=== PATIENT | female | born 1950 | race Caucasian/White ===

== ENCOUNTER → 2020-04-29 13:07 | Outpatient (BNVA) | payer MEDICARE, OTHER, SELFPAY | PROVIDERS: Visit Provider Urology | DX: N32.81 Overactive bladder (principal); N20.0 Calculus of kidney | CPT/HCPCS: Q3014 ==

== ENCOUNTER → 2020-06-03 10:09 | Outpatient (BNVA) | payer MEDICARE, OTHER, SELFPAY | PROVIDERS: Visit Provider Urology | DX: N32.81 Overactive bladder (principal); N20.0 Calculus of kidney | CPT/HCPCS: 52000; 52287; 81002; 99212; J0585 ==

== ENCOUNTER → 2020-07-06 13:56 | Outpatient (BNVA) | payer MEDICARE, OTHER, SELFPAY | PROVIDERS: Visit Provider Urology | DX: Z13.89 Encounter for screening for other disorder (principal) | CPT/HCPCS: Q3014 ==

== ENCOUNTER 2020-07-13 07:55 | Day surgery (SDC) | payer MEDICARE, OTHER, SELFPAY ==
--- NOTE | 2020-07-12 11:57 | P.CONAN_ITS ---
Documented by User: Edwige Leida 07/12/20 12:02 HPI - Anesthesia Eval Consult details Narrative: 70yo F for R ESWL No prev ESWL on record PMFSH Active Problems Active Problems: All Active Problems (Updated 04/29/20 @ 13:10 by Keith Lauren MD) Bilateral nephrolithiasis (Acute) Overactive bladder (Acute) Past Medical History Medical History Asthma Bilateral nephrolithiasis Breast cancer COPD (chronic obstructive pulmonary disease) Depression Diabetes GERD (gastroesophageal reflux disease) HLD (hyperlipidemia) HTN (hypertension) IBS (irritable bowel syndrome) Overactive bladder Thyroid nodule Surgical History Surgical History H/O left mastectomy (~2001) S/P Botox injection (~2018) S/P parathyroidectomy (~2006) S/P thyroid biopsy (~2005) Status post left breast reconstruction (~2002) Social History Social History Smoking Status: Never smoker Use of substances other than those prescribed or required for medical reasons: No Have you been hit, kicked, punched, or otherwise hurt by someone within the past year? If so, by whom?: No Advance Directives: No Advance Directives Information Provided: Yes Recently lost weight without trying: No Meds Allergies Allergy/AdvReac Type Severity Reaction Status Date / Time latex Allergy Severe rash and Verified 07/13/20 08:39 difficulty breathing cefaclor Allergy Mild Unknown Verified 04/29/20 15:46 ciprofloxacin [From Cipro] Allergy Mild unknown Verified 04/29/20 15:46 codeine Allergy Mild unknown Verified 04/29/20 15:46 Sulfa (Sulfonamide Allergy Mild unknown Verified 04/29/20 15:46 Antibiotics) sulfamethoxazole Allergy Mild unknown Verified 04/29/20 15:46 [From Bactrim] trimethoprim [From Bactrim] Allergy Mild unknown Verified 04/29/20 15:46 Home Medications Medication Instructions Recorded Confirmed Last Taken Type blood sugar diagnostic #10 ea 04/29/20 Unknown History flu vacc 2020-21(64yr ml IM 04/29/20 Unknown History up)-MF59C(PF) 60 mcg(15 mcgx4)/0.5 mL IM syringe fluticasone 250 mcg-salmeterol 50 INHALATION 04/29/20 Unknown History mcg/dose blistr powdr for inhalation lancets 28 gauge #100 ea 04/29/20 Unknown History lisinopril 20 mg tablet 20 mg PO QAM 04/29/20 07/13/20 History metformin 500 mg tablet,extended 500 mg PO BID 04/29/20 Unknown History release 24 hr nifedipine 30 mg tablet,extended 30 mg PO DAILY 04/29/20 Unknown History release omeprazole 40 mg capsule,delayed 40 mg PO DAILY 04/29/20 Unknown History release atorvastatin 40 mg tablet mg PO 07/06/20 Unknown History diphenoxylate-atropine 2.5 PO 07/06/20 07/13/20 History mg-0.025 mg tablet gabapentin 100 mg capsule mg PO 07/06/20 Unknown History fluticasone propion-salmeterol INHALATION 07/13/20 Unknown History [Advair Diskus] fluticasone propion-salmeterol INHALATION 07/13/20 07/13/20 History [Advair Diskus] nifedipine 1 tab PO DAILY 07/13/20 07/13/20 07/12/20 History Exam Exam Date and Time: July 12, 2020 115 Assessment and Plan Assessment Anesthesia Assessment: Chart Reviewed Documented by User: Theo Suazo 07/13/20 09:18 [facility] Past Medical History Medical History Asthma Bilateral nephrolithiasis Breast cancer COPD (chronic obstructive pulmonary disease) Depression Diabetes GERD (gastroesophageal reflux disease) HLD (hyperlipidemia) HTN (hypertension) IBS (irritable bowel syndrome) Overactive bladder Thyroid nodule Surgical History Surgical History H/O left mastectomy (~2001) S/P Botox injection (~2018) S/P parathyroidectomy (~2006) S/P thyroid biopsy (~2005) Status post left breast reconstruction (~2002) Social History Social History Smoking Status: Never smoker Use of substances other than those prescribed or required for medical reasons: No Have you been hit, kicked, punched, or otherwise hurt by someone within the past year? If so, by whom?: No Advance Directives: No Advance Directives Information Provided: Yes Recently lost weight without trying: No Meds Allergies Allergy/AdvReac Type Severity Reaction Status Date / Time latex Allergy Severe rash and Verified 07/13/20 08:39 difficulty breathing cefaclor Allergy Mild Unknown Verified 04/29/20 15:46 ciprofloxacin [From Cipro] Allergy Mild unknown Verified 04/29/20 15:46 codeine Allergy Mild unknown Verified 04/29/20 15:46 Sulfa (Sulfonamide Allergy Mild unknown Verified 04/29/20 15:46 Antibiotics) sulfamethoxazole Allergy Mild unknown Verified 04/29/20 15:46 [From Bactrim] trimethoprim [From Bactrim] Allergy Mild unknown Verified 04/29/20 15:46 Home Medications Medication Instructions Recorded Confirmed Last Taken Type blood sugar diagnostic #10 ea 04/29/20 Unknown History flu vacc 2020-21(65yr ml IM 04/29/20 Unknown History up)-MF59C(PF) 60 mcg(15 mcgx4)/0.5 mL IM syringe fluticasone 250 mcg-salmeterol 50 INHALATION 04/29/20 Unknown History mcg/dose blistr powdr for inhalation lancets 28 gauge #100 ea 04/29/20 Unknown History lisinopril 20 mg tablet 20 mg PO QAM 04/29/20 07/13/20 History metformin 500 mg tablet,extended 500 mg PO BID 04/29/20 Unknown History release 24 hr nifedipine 30 mg tablet,extended 30 mg PO DAILY 04/29/20 Unknown History release omeprazole 40 mg capsule,delayed 40 mg PO DAILY 04/29/20 Unknown History release atorvastatin 40 mg tablet mg PO 07/06/20 Unknown History diphenoxylate-atropine 2.5 PO 07/06/20 07/13/20 History mg-0.025 mg tablet gabapentin 100 mg capsule mg PO 07/06/20 Unknown History fluticasone propion-salmeterol INHALATION 07/13/20 Unknown History [Advair Diskus] fluticasone propion-salmeterol INHALATION 07/13/20 07/13/20 History [Advair Diskus] nifedipine 1 tab PO DAILY 07/13/20 07/13/20 07/12/20 History Exam Airway Mallampati Class: II TM Dist: >3cm Neck ROM: Full Loose/Missing/Broken Teeth: No Heart: [id number] Lungs: cta b/l Assessment and Plan Assessment Anesthesia Assessment: Anesthesia Plan Discussed, Smoking Cess. Discussed and Chart Reviewed Final Anesthetic Review NPO: Yes ASA Class: III Final Preanesthetic Review: No Changes in Pt Med Stat, Meds/Allgs Chart Reviewed, Consent Obtained/Reviewed and Anes Risks/Benef Reviewed Patient Risk: Intermediate Procedure Risk: Low Assessment/Block/Sedation in SS: Assess/Block/Sedation-SS Anesthetic Plan Anesthetic Plan: MAC: and Agree w/ Assess. and Plan Disposition: Standard PACU
[2020-07-13] VITALS (7 sets, daily range): BP systolic 133–152; BP diastolic 59–76; PULSE 66–78; RESP 18–20; TEMP 36.2–36.6; O2SAT 92–99; BMI 31.1
--- NOTE | ~2020-07-13 | XR_ITS ---
EXAMINATION: XR ABDOMEN KUB CLINICAL INDICATION: Stone COMPARISON: None TECHNIQUE: AP view of the abdomen. FINDINGS: Evaluation for renal stone is limited due to overlying bowel gas. There are several small densities projecting over the lower pole of the left kidney questionable for stones, largest measuring 3 x 5 mm. There are bilateral nonspecific small calcifications in the pelvis. There are surgical clips in the right upper quadrant suggestive of previous cholecystectomy. There are degenerative changes of the lower lumbar spine. XR/XR KUB IMPRESSION: Limited exam due to overlying bowel gas. Question left lower pole renal stones.
[2020-07-13 08:43] LABS: Glucose, Whole Blood 104 mg/dL (60-115)
[2020-07-13] MEDS: Lactated Ringers 1,000 ML 100 ML IVCONT (08:56)
--- NOTE | 2020-07-13 09:22 | MHC.SHP ---
Pre-Procedural Eval Section A The patient is an INPATIENT: No Changes since office visit: No Cold of Flu in the past 2 weeks, No New Medical Problems, No Changes in Medication and No Patient answered all questions The History & Physical has been completed within 30 days and I have reviewed it.: Yes Section B Chief Complaint: calculus of kidney Allergies: Allergies Allergy/AdvReac Type Severity Reaction Status Date / Time latex Allergy Severe rash and Verified 07/13/20 08:39 difficulty breathing cefaclor Allergy Mild Unknown Verified 04/29/20 15:46 ciprofloxacin [From Cipro] Allergy Mild unknown Verified 04/29/20 15:46 codeine Allergy Mild unknown Verified 04/29/20 15:46 Sulfa (Sulfonamide Allergy Mild unknown Verified 04/29/20 15:46 Antibiotics) sulfamethoxazole Allergy Mild unknown Verified 04/29/20 15:46 [From Bactrim] trimethoprim [From Bactrim] Allergy Mild unknown Verified 04/29/20 15:46 Plan Diagnosis/Plan: Unchanged I have reviewed the history and physical and performed a pertinent physical examination on my patient. No changes have occurred unless specified. Right ESWL
--- NOTE | 2020-07-13 09:46 | PM.OP ---
Brief Operative Note Date of Service: 07/13/20 Pre-op diagnosis: right renal stones Post-op diagnosis: same Procedure: right eswl to 2 stones Surgeon: Keith Lauren MD Anesthesia: MAC Estimated blood loss (mL): 0 Pathology: none sent Condition: stable Disposition: same day
--- NOTE | 2020-07-13 09:47 | W.PM.OPN ---
Operative Note Operative Note Date of Service: 07/13/20 Narrative: PreOperative Diagnosis: right Renal stones Post Operative Diagnosis: right Renal stones Procedure: right ESWL Surgeon: Dr Keith Lauren Anesthesia: mac/sedation Indications for procedure: They understand ESWL may be a staged procedure and subsequent intervention may be required based on imaging after ESWL. They also understand there is a risk of bleeding, infection, damage to adjacent organs. 7 mm mid 6 mm lower Procedure: After informed consent was verified the patient was brought to the operating room and placed in a supine position. Anesthesia was performed per protocol. Safety pause time-out was performed. Imaging was in the room and laterality confirmed. ESWL was performed. The 1st 500 shocks were performed at 60 hertz. These were performed with increasing power. Once maximum power was reached the rate was increased to 180 hertz. A total of 2500 shocks were given - 1500 to mid, 1000 to lower Fluoroscopy showed stone disintegration. They tolerated procedure well and was transferred to the recovery area upon completion.
[2020-07-13] MEDS: oxyCODONE HCl Immed Release 5 MG TABLET 10 MG PO (10:05)
[2020-07-13] MEDS: fentaNYL citrate/PF 100 MCG/2 ML VIAL 50 MCG IVPUSH (10:09)
== END 2020-07-13 11:13 | disposition home or self-care (01) ==
PROVIDERS: Visit Provider Urology
PROC: (CPT 50590; principal; 2020-07-13 08:40)
DX: N20.0 Calculus of kidney (principal); Z87.442 Personal history of urinary calculi; N32.81 Overactive bladder; I10 Essential (primary) hypertension; E11.9 Type 2 diabetes mellitus without complications; J44.9 Chronic obstructive pulmonary disease, unspecified; Z79.51 Long term (current) use of inhaled steroids; Z79.84 Long term (current) use of oral hypoglycemic drugs; Z79.899 Other long term (current) drug therapy; Z85.3 Personal history of malignant neoplasm of breast; Z91.040 Latex allergy status; Z88.2 Allergy status to sulfonamides; Z88.8 Allergy status to other drugs, medicaments and biological substances
CPT/HCPCS: 50590; 74018; 82947; J3010

== ENCOUNTER 2020-07-20 10:14 | Outpatient (REF) | payer MEDICARE, OTHER, SELFPAY ==
--- NOTE | ~2020-07-20 | US_ITS ---
EXAMINATION: US RETROPERITONEAL LIMITED (RENAL ONLY) CLINICAL INFORMATION: Calculus of kidney. COMPARISON: X-ray KUB 07/13/2020. TECHNIQUE: Real-time imaging of the kidneys. FINDINGS: RIGHT KIDNEY: 10.1 x 4.9 x 6.2 cm (SAG x AP x TRV). The kidney is normal in size and contour. Renal cortical thickness is normal. There is mild increased cortical echogenicity. No hydronephrosis seen. There is anechoic cyst in the lower pole measuring 0.6 x 0.5 x 0.6 cm. There are numerous echogenic stones. The largest stone in the midpole measures 0.3 x 0.2 cm. There is a perinephric hypoechoic area measuring 1.9 x 0.6 x 1.1 cm, likely small hematoma status post lithotripsy. LEFT KIDNEY: 10.9 x 4.6 x 5.1 cm (SAG x AP x TRV). The kidney is normal in size and contour. Renal cortical thickness is normal. There is mild increased cortical echogenicity. No focal parenchymal lesions or hydronephrosis. There are numerous echogenic stones with the largest in the lower pole measuring 0.7 x 0.4 cm. US/US renal BI IMPRESSION: Bilateral echogenic stones without any hydronephrosis. There is a small right perinephric 1.9 cm long hematoma, likely post lithotripsy. ESWL was performed one week ago. Lower pole right renal cyst.
== END 2020-07-20 10:15 | disposition home or self-care (01) ==
LOC: HO.US 10:14
PROVIDERS: Visit Provider Urology
DX: N20.0 Calculus of kidney (principal)
CPT/HCPCS: 76775

== ENCOUNTER → 2020-08-03 15:07 | Outpatient (BNVA) | payer MEDICARE, OTHER, SELFPAY | PROVIDERS: Visit Provider Urology | DX: Z13.89 Encounter for screening for other disorder (principal) | CPT/HCPCS: Q3014 ==

== ENCOUNTER 2020-08-24 09:17 | Outpatient (REF) | payer MEDICARE, OTHER, SELFPAY ==
--- NOTE | ~2020-08-24 | US_ITS ---
EXAMINATION: US RETROPERITONEAL LIMITED (RENAL ONLY) CLINICAL INFORMATION: Calculus of kidney. COMPARISON: Renal ultrasound 07/20/2020. KUB 07/13/2020. TECHNIQUE: Real-time imaging of the kidneys. FINDINGS: RIGHT KIDNEY: 10.0 x 4.4 x 5.6 cm (SAG x AP x TRV). The kidney is normal in size and contour. There is mild renal cortical thinning. No hydronephrosis. There is an anechoic cyst lower pole measuring 0.7 x 0.6 x 0.7 cm. There are small echogenic stones with the largest one measuring 0.4 x 0.3 cm. LEFT KIDNEY: 9.4 x 4.5 x 5.2 cm (SAG x AP x TRV). The kidney is normal in size and contour. There is mild renal cortical thinning. No focal parenchymal lesions or hydronephrosis. There are multiple small echogenic stones. The largest stone measuring 0.4 x 0.3 cm. US/US renal BI IMPRESSION: Bilateral nonobstructive echogenic calculi. No caliectasis or hydronephrosis seen.
== END 2020-08-24 09:18 | disposition home or self-care (01) ==
LOC: HO.US 09:17
PROVIDERS: Visit Provider Urology
DX: N20.0 Calculus of kidney (principal)
CPT/HCPCS: 76775

== ENCOUNTER → 2020-09-20 11:53 | Outpatient (BNVA) | payer MEDICARE, OTHER, SELFPAY | PROVIDERS: Visit Provider Urology | DX: N32.81 Overactive bladder (principal); N20.0 Calculus of kidney | CPT/HCPCS: Q3014 ==

== ENCOUNTER → 2021-03-14 15:20 | Outpatient (BNVA) | payer MEDICARE, OTHER, SELFPAY | PROVIDERS: Visit Provider Urology | DX: N32.81 Overactive bladder (principal); N20.0 Calculus of kidney | CPT/HCPCS: Q3014 ==

== ENCOUNTER → 2021-04-27 10:47 | Outpatient (BNVA) | payer MEDICARE, OTHER, SELFPAY | PROVIDERS: Visit Provider Urology | DX: N32.81 Overactive bladder (principal) | CPT/HCPCS: 52000; 52287; J0585 ==

== ENCOUNTER → 2021-05-17 14:14 | Outpatient (BNVA) | payer MEDICARE, OTHER, SELFPAY | PROVIDERS: Visit Provider Urology | DX: Z13.89 Encounter for screening for other disorder (principal) | CPT/HCPCS: Q3014 ==

== ENCOUNTER → 2021-06-28 13:17 | Outpatient (BNVA) | payer MEDICARE, OTHER, SELFPAY | PROVIDERS: Visit Provider Urology | DX: N20.0 Calculus of kidney (principal); N32.81 Overactive bladder | CPT/HCPCS: Q3014 ==

== ENCOUNTER → 2021-12-29 11:00 | Outpatient (BNVA) | payer MEDICARE, OTHER, SELFPAY | PROVIDERS: PCP Nurse Practitioner Gerontology; Visit Provider Urology | DX: R35.1 Nocturia (principal); N32.81 Overactive bladder; Z87.442 Personal history of urinary calculi | CPT/HCPCS: 51798; Q3014 ==

== ENCOUNTER → 2022-07-05 09:36 | Outpatient (BNVA) | payer MEDICARE, OTHER, SELFPAY | PROVIDERS: PCP Nurse Practitioner Gerontology; Visit Provider Urology | DX: N32.81 Overactive bladder (principal); R33.9 Retention of urine, unspecified | CPT/HCPCS: Q3014 ==

== ENCOUNTER → 2022-08-28 08:29 | Outpatient (BNVA) | payer MEDICARE, OTHER, SELFPAY | PROVIDERS: PCP Nurse Practitioner Gerontology; Visit Provider Urology | DX: N32.81 Overactive bladder (principal); N20.0 Calculus of kidney | CPT/HCPCS: 51798; 99212 ==

== ENCOUNTER 2022-12-25 13:04 | Outpatient (AMB) | payer MEDICARE, OTHER, SELFPAY ==
--- NOTE | 2022-12-25 13:05 | A.OFFVIS_ITS ---
Intake Intake Visit Reasons: 3 month follow up (cx surgery) Intake Note: Patient presents today for follow up OAB/urinary retention Urology Medications: Gemtesa/Tamsulosin Blood Thinner: None PVR: 34mls Behavioral Health Clinician Required: No Accompanied by: Self / Same As Patient Allergies latex Allergy (Severe, Verified 12/25/22 13:26) rash and difficulty breathing cefaclor Allergy (Mild, Verified 12/25/22 13:26) Unknown ciprofloxacin [From Cipro] Allergy (Mild, Verified 12/25/22 13:26) unknown codeine Allergy (Mild, Verified 12/25/22 13:26) unknown Sulfa (Sulfonamide Antibiotics) Allergy (Mild, Verified 12/25/22 13:26) unknown sulfamethoxazole [From Bactrim] Allergy (Mild, Verified 12/25/22 13:26) unknown trimethoprim [From Bactrim] Allergy (Mild, Verified 12/25/22 13:26) unknown Penicillins Allergy (Verified 12/25/22 13:26) unknown Medication List - Last Reconciled 12/25/22 by TOMASZ Martinez-SUKHWINDER atorvastatin mg PO blood sugar diagnostic As directed diphenoxylate-atropine 2.5-0.025 mg PO flu vac 2020 [id number](PF) 60 mcg (15 mcg x 4)/0.5 mL mL IM gabapentin mg PO lancets As directed lisinopril 20 mg PO QAM metformin ER 500 mg PO BID nifedipine ER 30 mg PO DAILY omeprazole 40 mg PO DAILY sertraline 100 mg PO DAILY tamsulosin 0.4 mg PO BEDTIME 90 days vibegron (Gemtesa) 75 mg PO DAILY 90 days HPI HPI Comments History of Present Illness Details Ofelia is a very pleasant 72-year-old female patient of Dr. Cruz. She has a past medical history of asthma, nephrolithiasis, breast cancer, depression, COPD, diabetes, GERD, hyperlipidemia, hypertension, IBS, overactive bladder, and thyroid nodule. She is following up today regarding her nephrolithiasis and urinary urgency and urinary frequency. In discussion with the patient today she reports to be doing and feeling well. Patient was planning to undergo InterStim phase 1 however states she has been stable with her voiding paramters on Gemetesa 75 mg daily and would like to continue. Of note, patient with previous failed OAB medications. Please see previous office note below. She otherwise denies urinary urgency, urinary frequency, incontinence, nocturia, hematuria, dysuria, foul smelling urine, changes to urinary stream, flank pain, fever, and or chills. Unable to obtain urine for urinalysis however PVR less than 40 mL. Patient otherwise offers no issues or concerns at this time. Urinary Urge/Frequency: They present today for followup evaluation of overactive bladder. Symptoms have been present since a number of years. Current therapy includes fluid restriction, dietary modification, - Intravesicle Botox. Prior treatment(s) included anticholinergics 20 mg XL, imiparamine 25mg, myrbetrique 04/29 Mixed OAB meds 04/29 botox, 09/28 botox, 04/30 botox, 12/30 botox, 06/02 botox, 05/02 botox Obstetric history , 1, Para, 0. Current symptoms include frequency Yes nocturia No urgency Yes urine loss none dysuria No chills No hematuria No constipation No extremity weakness No Associated medical conditions Alzheimer's disease No CVA No cystocele No dementia No diabetes Yes interstital cystitis No recurrent UTI's No spinal cord injury No Nephrolithiasis Minimal symptoms Imaging 06/02 renal ultrasound bilateral 6-8 mm stones - 08/31 renal ultrasound bilateral 2 mm stones - 07/04 renal ultrasound bilateral small stones Interventions - 07/[address] [facility] Medical History Asthma Bilateral nephrolithiasis Breast cancer COPD (chronic obstructive pulmonary disease) Depression Diabetes GERD (gastroesophageal reflux disease) HLD (hyperlipidemia) HTN (hypertension) IBS (irritable bowel syndrome) Overactive bladder Thyroid nodule Surgical History H/O left mastectomy (~2001) S/P Botox injection (~2018) S/P parathyroidectomy (~2006) S/P thyroid biopsy (~2005) Status post left breast reconstruction (~2002) Social History Household Members: Family Housing: House Alcohol intake: former Patient Tobacco Use Status: Never used Tobacco Review of Systems Const Reports as per HPI Eyes Reports no additional complaints ENT Reports no additional complaints Card Reports as per HPI Resp Reports as per HPI GI Reports as per HPI Reports as per HPI Neuro Reports no additional complaints Psych Reports as per [facility] Endo Reports as per HPI Jan/Lymph Reports no additional complaints Aller/Immun Reports no additional complaints Physical Exam Const General: cooperative, healthy appearing, comfortable, no acute distress, well developed, alert and awake Orientation/consciousness: patient oriented x3 Limitations: no limitations HEENT Head: Yes normal to inspection, Yes normocephalic and Yes atraumatic Ears: hearing grossly normal bilaterally Eyes General: appearance normal, both eyes and all related structures Neck Neck: Yes normal visual inspection and Yes trachea midline Chest Chest palpation & inspection: normal inspection of the chest Resp Effort & Inspection: normal respiratory effort and able to speak in complete sentences Cardio Rate: regular rate GI Inspection: Yes normal to inspection General: Yes no CVA tenderness Back/Spine/Pelvis Back: no CVA tenderness Skin General skin exam: no rashes or lesions noted Neuro General: patient oriented x3 Extrem General: Yes normal to inspection Psych Appearance: grossly normal and well kempt Mental Status: mental status grossly normal Speech and movement: Normal speech and movement present and Clear speech present Affect: normal affect Attitude: cooperative Thought process: Normal thought process present Thought content: Normal thought content present Insight: Fair insight present (Psych) Judgement: Fair judgement present (Psych) Office Procedures Post Void Residual Post Residual Void Post Void Residual (PVR): 34 [id number] Void Residual by ultrasound Assessment & Plan Assessment & Plan (1) Bilateral nephrolithiasis: Code(s): N20.0 - Calculus of kidney (2) Overactive bladder: Code(s): N32.81 - Overactive bladder Plan Unable to obtain urine for urinalysis however PVR less than 40 mL. Patient reports to be happy with current voiding parameters on 75 mg of Gemtesa Refill for Gemtesa provided. Discussed at length importance of managing diabetes for improvement in urinary symptoms as well as overall health and well-being. Discussed obtaining retroperitoneal ultrasound in 6 months for further assessment evaluation as patient with previous history of renal calculi last ultrasound noted in 2020 Patient denies any bothersome urinary issues or concerns at this time. Discussed, educated, instructed on the importance of drinking plenty of water daily. Follow-up in 6 months with imaging to be completed prior; or sooner with any issues, concerns, and or questions. Orders: Orders US retroperitoneal comp 6 Months N20.0 - Calculus of kidney, N32.81 - Overactive bladder, R33.9 - Retention of urine, unspecified AMB Urinalysis Automated Today Z13.9 - Encounter for screening, unspecified AMB Post Void Residual by ultrasound Today R33.9 - Retention of urine, unspecified Medications: New vibegron (Gemtesa) 75 mg PO DAILY 90 days 90 tabs 3RF N32.81 - Overactive bladder Discontinued vibegron (Gemtesa) Discontinued Reason: Doctor's Order 75 mg PO DAILY 30 days 30 tabs 5RF N32.81 - Overactive bladder Patient Instructions: The patient had an opportunity to ask questions regarding the treatment plan. All questions were answered. Physical exam, labs, and imaging were discussed and reviewed in detail. As well as risks, benefits, and discussion of treatment choices. No major barriers to understanding were identified. The patient expressed understanding and agreement with the above treatment plan. The patient was made aware they should contact our office by phone for worsening of their current condition, the appearance of new symptoms, or with any questions or concerns. Compliance is encouraged with any medications and follow up testing that is ordered. It is a privilege to be allowed the opportunity to participate in? your urological care.? Again, if you have any questions or concerns If you have any questions or concerns please do not hesitate to contact me. The office is [phone]. This note is constructed using voice recognition software. While every effort has been made to ensure accuracy sewing machine repairer helper errors may have been included. Yours sincerely, PATITO Martinez Coding Level of Care Code Est Pt Level 3 (85528) Diagnoses Bilateral nephrolithiasis N20.0 Overactive bladder N32.81 CPT Codes Post Residual Void - PVR CPT Code: 29818-Pqkl Void Residual by ultrasound ([id number])
== END 2022-12-25 13:28 | disposition home or self-care (01) ==
PROVIDERS: PCP Nurse Practitioner Gerontology; Visit Provider Nurse Practitioner Family
DX: N20.0 Calculus of kidney (principal); N32.81 Overactive bladder
CPT/HCPCS: 99213

== ENCOUNTER → 2022-12-25 13:04 | Outpatient (BNVA) | payer MEDICARE, OTHER, SELFPAY | PROVIDERS: PCP Nurse Practitioner Gerontology; Visit Provider Nurse Practitioner Family | DX: N32.81 Overactive bladder (principal); N20.0 Calculus of kidney | CPT/HCPCS: 51798; 99212 ==

== ENCOUNTER 2023-06-06 10:15 | Outpatient (REF) | payer MEDICARE, OTHER, SELFPAY ==
--- NOTE | ~2023-06-06 | US_ITS ---
EXAMINATION: US RETROPERITONEAL COMPLETE (RENAL) CLINICAL INFORMATION: Calculus of kidney. COMPARISON: Renal ultrasound 08/24/2020 07/20/2020. TECHNIQUE: Real-time imaging of the kidneys and bladder. FINDINGS: RIGHT KIDNEY: 10.9 x 5.5 x 5.5 cm (SAG x AP x TRV). The kidney is normal in size, contour, and echogenicity. Renal cortical thickness is normal. No focal parenchymal lesions or hydronephrosis. Multiple nonobstructive renal calculi largest measuring 0.7 cm in the upper and lower poles. LEFT KIDNEY: 10.9 x 4.7 x 5.4 cm (SAG x AP x TRV). The kidney is normal in size, contour, and echogenicity. Renal cortical thickness is normal. No focal parenchymal lesions or hydronephrosis. Multiple nonobstructive renal calculi largest measuring 1.6 cm in the lower pole. BLADDER: Well distended and normal. Bilateral ureteral jets are demonstrated. Prevoid bladder volume is 276 mL. Postvoid bladder volume is 36 mL. US/US retroperitoneal comp IMPRESSION: Nonobstructive bilateral renal calculi.
== END 2023-06-06 10:16 | disposition home or self-care (01) ==
LOC: HO.US 10:15
PROVIDERS: PCP Nurse Practitioner Gerontology; Visit Provider Nurse Practitioner Family
DX: N20.0 Calculus of kidney (principal); N32.81 Overactive bladder; R33.9 Retention of urine, unspecified
CPT/HCPCS: 76770

== ENCOUNTER 2023-06-28 09:59 | Outpatient (AMB) | payer MEDICARE, OTHER, SELFPAY ==
--- NOTE | 2023-06-28 10:24 | A.OFFVIS_ITS ---
Intake Intake Visit Reasons: 6m follow up/PVR Intake Note: Patient presents today for follow up OAB/urinary retention, bilateral nephrolithiasis Urology Medications: tamsulosin Blood Thinner: None PVR: 80ml Patient takes muti-vitamins, however she does not know if she takes Vitamin B6 Cardiovascular Invasive Specialist Required: No Accompanied by: Self / Same As Patient Allergies latex Allergy (Severe, Verified 06/28/23 10:54) rash and difficulty breathing cefaclor Allergy (Mild, Verified 06/28/23 10:54) Unknown ciprofloxacin [From Cipro] Allergy (Mild, Verified 06/28/23 10:54) unknown codeine Allergy (Mild, Verified 06/28/23 10:54) unknown Sulfa (Sulfonamide Antibiotics) Allergy (Mild, Verified 06/28/23 10:54) unknown sulfamethoxazole [From Bactrim] Allergy (Mild, Verified 06/28/23 10:54) unknown trimethoprim [From Bactrim] Allergy (Mild, Verified 06/28/23 10:54) unknown Penicillins Allergy (Verified 06/28/23 10:54) unknown Medication List - Last Reconciled 06/28/23 by PATITO Martinez atorvastatin mg PO blood sugar diagnostic As directed diphenoxylate-atropine 2.5-0.025 mg PO flu vac 2020 [id number](PF) 60 mcg (15 mcg x 4)/0.5 mL mL IM gabapentin mg PO lancets As directed lisinopril 20 mg PO QAM metformin ER 500 mg PO BID multivitamin (Multiple Vitamins tablet) 1 tab PO DAILY nifedipine ER 30 mg PO DAILY omeprazole 40 mg PO DAILY sertraline 100 mg PO DAILY tamsulosin 0.4 mg PO BEDTIME 90 days vibegron (Gemtesa) 75 mg PO DAILY 90 days HPI HPI Comments History of Present Illness Details Ofelia is a very pleasant 73-year-old female patient of Dr. Cruz. She has a past medical history of asthma, nephrolithiasis, breast cancer, depression, COPD, diabetes, GERD, hyperlipidemia, hypertension, IBS, overactive bladder, and thyroid nodule. She is following up today regarding her nephrolithiasis and urinary urgency and urinary frequency. In discussion with the patient today she reports to be doing and feeling well. She reports to be happy with current voiding parameters on gemtesa. She reports significant improvement in overactive bladder symptoms she had been experiencing. Recent renal imaging results reviewed with the patient today. Right kidney with multiple nonobstructive renal calculi largest measuring approximately 7 mm in the upper and lower poles. Left kidney with multiple nonobstructive renal calculi largest measuring 1.6 cm in the lower pole. Otherwise no lesions or hydronephrosis noted bilaterally. The bladder is well distended and normal. Bilateral ureteral jets are demonstrated. Prevoid bladder volume is approximately 275 mL. Postvoid bladder volume is approximately 3 mL. Discussed at length increase in stone burden on left side. She currently experiences intermittent bilateral flank pain. Discussed obtaining CT KUB for further assessment evaluation. In office urinalysis results reviewed with the patient today PVR 80ml's. Patient with a previous longstanding history of nephrolithiasis with surgical interventions for her renal stones with Dr. Lauren. She otherwise denies urinary urgency, urinary frequency, incontinence, nocturia, hematuria, dysuria, foul smelling urine, changes to urinary stream, flank pain, fever, and or chills. Of note, patient has a history of multiple failed OAB medications however has been happy with her current voiding paramters on Gemtesa. Patient otherwise offers no issues or concerns at this time. PREVIOUS OFFICE NOTE INFORMATION: Urinary Urge/Frequency: They present today for followup evaluation of overactive bladder. Symptoms have been present since a number of years. Current therapy includes fluid restriction, dietary modification, - Intravesicle Botox. Prior treatment(s) included anticholinergics 20 mg XL, imiparamine 25mg, myrbetrique 04/29 Mixed OAB meds 04/29 botox, 09/28 botox, 04/30 botox, 12/30 botox, 06/02 botox, 05/02 botox Obstetric history , 1, Para, 0. Current symptoms include frequency Yes nocturia No urgency Yes urine loss none dysuria No chills No hematuria No constipation No extremity weakness No Associated medical conditions Alzheimer's disease No CVA No cystocele No dementia No diabetes Yes interstital cystitis No recurrent UTI's No spinal cord injury No Nephrolithiasis Minimal symptoms Imaging 06/02 renal ultrasound bilateral 6-8 mm stones - 08/31 renal ultrasound bilateral 2 mm s tones - 07/04 renal ultrasound bilateral small stones Interventions - 07/31 [facility] Medical History Diabetes HLD (hyperlipidemia) COPD (chronic obstructive pulmonary disease) IBS (irritable bowel syndrome) Depression Breast cancer Thyroid nodule HTN (hypertension) GERD (gastroesophageal reflux disease) Asthma Bilateral nephrolithiasis Overactive bladder Surgical History S/P Botox injection (~2018) Status post left breast reconstruction (~2002) S/P thyroid biopsy (~2005) H/O left mastectomy (~2001) S/P parathyroidectomy (~2006) Social History Household Members: Family Housing: House Alcohol intake: former Patient Tobacco Use Status: Never used Tobacco Review of Systems Const Reports as per [facility] Eyes Reports no additional complaints ENT Reports no additional complaints Card Reports as per HPI Resp Reports as per HPI GI Reports as per HPI Reports as per HPI Neuro Reports no additional complaints Psych Reports as per HPI Endo Reports as per HPI Jan/Lymph Reports no additional complaints Aller/Immun Reports no additional complaints Physical Exam Const General: cooperative, healthy appearing, comfortable, no acute distress, well developed, alert and awake Orientation/consciousness: patient oriented x3 Limitations: no limitations HEENT Head: Yes normal to inspection, Yes normocephalic and Yes atraumatic Ears: hearing grossly normal bilaterally Eyes General: appearance normal, both eyes and all related structures Neck Neck: Yes normal visual inspection and Yes trachea midline Chest Chest palpation & inspection: normal inspection of the chest Resp Effort & Inspection: normal respiratory effort and able to speak in complete sentences Cardio Rate: regular rate GI Inspection: Yes normal to inspection General: Yes no CVA tenderness Back/Spine/Pelvis Back: no CVA tenderness Skin General skin exam: no rashes or lesions noted Neuro General: patient oriented x3 Extrem General: Yes normal to inspection Psych Appearance: grossly normal and well kempt Mental Status: mental status grossly normal Speech and movement: Normal speech and movement present and Clear speech present Affect: normal affect Attitude: cooperative Thought process: Normal thought process present Thought content: Normal thought content present Insight: Fair insight present (Psych) Judgement: Fair judgement present (Psych) Office Procedures Post Void Residual Post Residual Void Post Void Residual (PVR): 80 [id number] Void Residual by ultrasound Results AMB Urinalysis, Automated 2 UA Leukoctes 0 Soham/uL [facility] on 06/28/23 10 :37 UA Nitrite Negative Last Edit [facility] on 06/28/23 10: 37 UA Urobilinogen 0.2 mg/dL Last Edit [facility], [facility] on 4 10:37 UA Protein 0 mg/dL Last Edit by [facility], [facility] on 06/28/23 10:37 UA pH 6.0 Last Edit by [facility], [facility] on 06/28/23 10:37 UA Blood 0 Rogelio/uL Last Edit by [facility], [facility] on 06/28/23 10:37 UA Specific [place] 1.015 Last Edit by [facility], [facility] on 10:37 UA Ketone Negative Last Edit by [facility], [facility] on 06/28/23 10:3 7 UA Bilirubin 0 mg/dL Last Edit by [facility] on 06/28/23 10: 37 UA Glucose 0 mg/dL Last Edit by [facility], [facility] on 06/28/23 10:37 Results Reviewed Results Reviewed: Laboratory Last Values Urine pH (Auto) 6.0 06/28/23 10:35 Specific [place] (Auto) 1.015 06/28/23 10:35 Urine Protein (Auto) 0 mg/dL 06/28/23 10:35 Glucose (UA)(Auto) 0 mg/dL 06/28/23 10:35 Urine Ketones (Auto) Negative 06/28/23 10:35 Urine Blood (Auto) 0 Rogelio/uL 06/28/23 10:35 Urine Nitrite (Auto) Negative 06/28/23 10:35 Urine Bilirubin (Auto) 0 mg/dL 06/28/23 10:35 Urine Urobilinogen (Auto) 0.2 mg/dL 06/28/23 10:35 Leukocyte Esterase (Auto) 0 Soham/uL 06/28/23 10:35 Date of Service: 06/06/23 US RETROPERITONEAL COMPLETE (RENAL) FINDINGS: RIGHT KIDNEY: 10.9 x 5.5 x 5.5 cm (SAG x AP x TRV). The kidney is normal in size, contour, and echogenicity. Renal cortical thickness is normal. No focal parenchymal lesions or hydronephrosis. Multiple nonobstructive renal calculi largest measuring 0.7 cm in the upper and lower poles. LEFT KIDNEY: 10.9 x 4.7 x 5.4 cm (SAG x AP x TRV). The kidney is normal in size, contour, and echogenicity. Renal cortical thickness is normal. No focal parenchymal lesions or hydronephrosis. Multiple nonobstructive renal calculi largest measuring 1.6 cm in the lower pole. BLADDER: Well distended and normal. Bilateral ureteral jets are demonstrated. Prevoid bladder volume is 276 mL. Postvoid bladder volume is 36 mL. US/US retroperitoneal comp IMPRESSION: Nonobstructive bilateral renal calculi. Assessment & Plan Assessment & Plan (1) Bilateral nephrolithiasis: Code(s): N20.0 - Calculus of kidney (2) Overactive bladder: Code(s): N32.81 - Overactive bladder Plan In office urinalysis results reviewed with the patient today; as noted above. PVR 80ml's Recent renal imaging results reviewed with the patient today; as noted above. Discussed at length increased stone burden. Discussed at length further intervention versus surveillance monitoring; risks and benefits of these interventions were discussed at length Discussed, educated, and stressed the importance of drinking plenty of water daily. Discussed continue at 1 oz of lemon juice to water daily. Will obtain CT KUB for further assessment evaluation. Continue Gemtesa 75mg as discussed and prescribed; refill provided Continue vitamin B6 as prescribed. Follow-up in 2-4 weeks with imaging to be completed prior. Orders: Orders AMB Urinalysis Automated 06/28/23 R33.9 - Retention of urine, unspecified AMB Post Void Residual by ultrasound 06/28/23 R33.9 - Retention of urine, unspecified CT kidney stone 06/28/23 N20.0 - Calculus of kidney Medications: Refilled vibegron (Gemtesa) 75 mg PO DAILY 90 days 90 tabs 3RF N32.81 - Overactive bladder Patient Instructions: The patient had an opportunity to ask questions regarding the treatment plan. All questions were answered. Physical exam, labs, and imaging were discussed and reviewed in detail. As well as risks, benefits, and discussion of treatment choices. No major barriers to understanding were identified. The patient expressed understanding and agreement with the above treatment plan. The patient was made aware they should contact our office by phone for worsening of their current condition, the appearance of new symptoms, or with any questions or concerns. Compliance is encouraged with any medications and follow up testing that is ordered. It is a privilege to be allowed the opportunity to participate in? your urological care.? Again, if you have any questions or conc erns If you have any questions or concerns please do not hesitate to contact me. The office is [phone]. This note is constructed using voice recognition software. While every effort has been made to ensure accuracy manager environmental health and safety errors may have been included. Yours sincerely, PATITO Martinez Coding Level of Care Code Est Pt Level 3 (01634) Diagnoses Bilateral nephrolithiasis N20.0 Overactive bladder N32.81 CPT Codes Post Residual Void - PVR CPT Code: 93417-Jxex Void Residual by ultrasound ([id number])
== END 2023-06-28 11:02 | disposition home or self-care (01) ==
PROVIDERS: PCP Nurse Practitioner Gerontology; Visit Provider Nurse Practitioner Family
DX: N20.0 Calculus of kidney (principal); N32.81 Overactive bladder
CPT/HCPCS: 99213

== ENCOUNTER → 2023-06-28 09:59 | Outpatient (BNVA) | payer MEDICARE, OTHER, SELFPAY | PROVIDERS: PCP Nurse Practitioner Gerontology; Visit Provider Nurse Practitioner Family | DX: N20.0 Calculus of kidney (principal); N32.81 Overactive bladder | CPT/HCPCS: 51798; 81003; 99212 ==

== ENCOUNTER 2023-08-02 13:59 | Outpatient (REF) | payer MEDICARE, OTHER, SELFPAY ==
--- NOTE | ~2023-08-02 | CT_ITS ---
EXAMINATION: CT KIDNEY STONE CLINICAL INFORMATION: Renal calculus COMPARISON: Ultrasound kidney on 06/06/2023 TECHNIQUE: Multiple axial images were obtained from domes of diaphragm to the inferior pubic rami without IV contrast enhancement according to stones searching protocol. Coronal and sagittal images were reconstructed from axial image data. Dose reduction technique: One or more of the following individual dose optimization techniques were used including: Automated exposure control, mA and/or kV were adjusted according to patient size or iterative reconstruction. DLP: 598.47 mGy-cm FINDINGS: CT ABDOMEN LUNG BASES: Coronal platelike atelectasis is seen in anterior left lung base, left lingular lobe inferior segment. LIVER: An oval shaped low density lesion is seen at the medial border of left hepatic lobe segment IVb, measuring 2.5 cm in AP diameter, 3.2 cm in width, 3.0 cm in vertical height, mean attenuation of 28 Hounsfield units. GALLBLADDER AND BILIARY TREE: Gallbladder is surgically absent with clips in the gallbladder fossa. Common bile duct is not dilated. SPLEEN: The spleen is normal in size without focal lesion on noncontrast enhanced images. PANCREAS: The pancreas appears unremarkable on noncontrast enhanced images. ADRENAL GLANDS: Adrenal glands are normal in size without focal lesion bilaterally. KIDNEYS: The visualized bilateral kidneys are normal in size with bilateral multiple renal calculi at all levels, with the largest calculi seen in lower left kidney measuring up to 0.8 cm in diameter. There is asymmetric marked thinning of right lateral lower renal cortex. No caliectasis or dilated pelvis is seen. No dilated ureters are found. BOWELS: There is no abnormal dilatation of the large and small bowel loops. RETROPERITONEUM: No abnormally enlarged retroperitoneal lymph nodes, mass or hematoma could be seen. BLOOD VESSELS: Abdominal aorta is normal in size with extensive atherosclerotic calcifications. ABDOMINAL WALL: Small umbilical hernia containing mesenteric fat is seen. PERITONEUM: There is no ascites. There were no abdominal peritoneal inflammatory changes seen. No free peritoneal air was seen. BONES: Advanced L5-S1 degenerative lumbar disc disease is present. No fracture or dislocation. No focal bone lesion diagnostic of metastatic disease could be seen in the lumbar region. CT PELVIS URINARY BLADDER: The visualized urinary bladder is normal, filled with urine. No intraluminal stones are found. No abnormally dilated distal ureters are seen. BOWELS: There is no abnormal dilatation of the large and small bowel loops. Normal appendix is seen projecting posterior and superior to the cecum. Multiple diverticula are seen in the sigmoid colon without inflammatory changes. GENITAL ORGANS: No adnexal mass lesion could be seen. The uterus is atrophic, containing a chunky calcified nodule in posterior left uterine fundus measuring 0.9 cm in diameter. LYMPH NODES: No abnormally enlarged iliac or inguinal lymph nodes are seen. PERITONEUM: No inflammatory changes, ascites or free peritoneal air are found in the pelvis. BONES: No fracture or dislocation. No focal bone lesion diagnostic of metastatic disease could be seen in the pelvis. CT/CT kidney stone IMPRESSION: 1. Bilateral multiple renal calculi at all levels, with the largest calculi seen in lower left kidney measuring up to 0.8 cm in diameter. 2. No evidence of hydronephrosis. 3. Asymmetric marked thinning of right lateral lower renal cortex, compatible with previous obstructive uropathy, renal infarction or pyelonephritis. 4. An oval shaped low density lesion is seen at the medial border of left hepatic lobe segment IVb. Further evaluation with pre and postcontrast MRI of abdomen is recommended. 5. Sigmoid diverticulosis without inflammatory changes. 6. Atrophic uterus containing a chunky calcified nodule in posterior left uterine fundus, compatible with calcified fibroid.
== END 2023-08-02 14:00 | disposition home or self-care (01) ==
LOC: HO.CT 13:59
PROVIDERS: PCP Nurse Practitioner Gerontology; Visit Provider Nurse Practitioner Family
DX: N20.0 Calculus of kidney (principal)
CPT/HCPCS: 74176

== ENCOUNTER 2023-08-05 15:54 | Outpatient (AMB) | payer MEDICARE, OTHER, SELFPAY ==
--- NOTE | 2023-08-05 15:55 | A.OFFVIS_ITS ---
Intake Intake Visit Reasons: 4 week follow up/ imagine Intake Note: Patient presents today for tele visit follow up OAB/urinary retention, bilateral nephrolithiasis, CT Scan results Imagin08/02/23 Urology Medications: Vitamin B6, Gemtesa Blood Thinner: None Post Doctoral Fellow Required: No Accompanied by: Self / Same As Patient Allergies latex Allergy (Severe, Verified 08/05/23 16:17) rash and difficulty breathing cefaclor Allergy (Mild, Verified 08/05/23 16:17) Unknown ciprofloxacin [From Cipro] Allergy (Mild, Verified 08/05/23 16:17) unknown codeine Allergy (Mild, Verified 08/05/23 16:17) unknown Sulfa (Sulfonamide Antibiotics) Allergy (Mild, Verified 08/05/23 16:17) unknown sulfamethoxazole [From Bactrim] Allergy (Mild, Verified 08/05/23 16:17) unknown trimethoprim [From Bactrim] Allergy (Mild, Verified 08/05/23 16:17) unknown Penicillins Allergy (Verified 08/05/23 16:17) unknown Medication List - Last Reconciled 08/05/23 by TOMASZ Martinez-SUKHWINDER atorvastatin mg PO blood sugar diagnostic As directed diphenoxylate-atropine 2.5-0.025 mg PO flu vac 2020 [id number](PF) 60 mcg (15 mcg x 4)/0.5 mL mL IM gabapentin mg PO lancets As directed lisinopril 20 mg PO QAM metformin ER 500 mg PO BID multivitamin (Multiple Vitamins tablet) 1 tab PO DAILY nifedipine ER 30 mg PO DAILY omeprazole 40 mg PO DAILY sertraline 100 mg PO DAILY tamsulosin 0.4 mg PO BEDTIME 90 days vibegron (Gemtesa) 75 mg PO DAILY 90 days HPI HPI Comments History of Present Illness Details Ofelia is a very pleasant 73-year-old female patient of Dr. Cruz. She has a past medical history of asthma, nephrolithiasis, breast cancer, depression, COPD, diabetes, GERD, hyperlipidemia, hypertension, IBS, overactive bladder, and thyroid nodule. She is following up today regarding her nephrolithiasis and urinary urgency and urinary frequency. Of note, patient was seen approximately 1 month ago at which time a CT KUB was ordered for further assessment evaluation for increased stone burden noted on recent renal ultrasound as well as bilateral flank pain patient has been experiencing. These results were reviewed with the patient today. Bilateral multiple renal calculi at all levels with the largest calculi seen in the lower left kidney measuring up to 0.8 cm in diameter. No hydronephrosis noted. In discussion with the patient today she continues to report bilateral intermittent flank pain. Discussed further surgical intervention versus surveillance monitoring. She rep orts to be following up with her rehab trainer for GI issues she has also been experiencing. Discussed findings on CT with oval shaped low density lesion is seen at the medial border of left hepatic lobe segment IVb. Further evaluation with pre and postcontrast MRI of abdomen is recommended. Sigmoid diverticulosis without inflammatory changes. Patient with a previous longstanding history of nephrolithiasis with surgical interventions for her renal stones with Dr. Lauren. She otherwise denies urinary urgency, urinary frequency, incontinence, nocturia, hematuria, dysuria, foul smelling urine, changes to urinary stream, flank pain, fever, and or chills. Of note, patient has a history of multiple failed OAB medications however has been happy with her current voiding paramters on Gemtesa. Patient otherwise offers no issues or concerns at this time. She otherwise denies any other issues or concerns at this time. PREVIOUS OFFICE NOTE INFORMATION: Urinary Urge/Frequency: They present today for followup evaluation of overactive bladder. Symptoms have been present since a number of years. Current therapy includes fluid restriction, dietary modification, - Intravesicle Botox. Prior treatment(s) included anticholinergics 20 mg XL, imiparamine 25mg, myrbetriq 04/29 Mixed OAB meds 04/29 botox, 09/28 botox, 04/30 botox, 12/30 botox, 06/02 botox, 05/02 botox Obstetric history , 1, Para, 0. Current symptoms include frequency Yes nocturia No urgency Yes urine loss none dysuria No chills No hematuria No constipation No extremity weakness No Associated medical conditions Alzheimer's disease No CVA No cystocele No dementia No diabetes Yes interstital cystitis No recurrent UTI's No spinal cord injury No Nephrolithiasis Minimal symptoms Imaging 06/02 renal ultrasound bilateral 6-8 mm stones - 08/31 renal ultrasound bilateral 2 mm s tones - 07/04 renal ultrasound bilateral small stones Interventions - 07/31 [facility] Medical History Diabetes HLD (hyperlipidemia) COPD (chronic obstructive pulmonary disease) IBS (irritable bowel syndrome) Depression Breast cancer Thyroid nodule HTN (hypertension) GERD (gastroesophageal reflux disease) Asthma Bilateral nephrolithiasis Overactive bladder Surgical History S/P Botox injection (~2018) Status post left breast reconstruction (~2002) S/P thyroid biopsy (~2005) H/O left mastectomy (~2001) S/P parathyroidectomy (~2006) Social History Household Members: Family Housing: House Alcohol intake: former Patient Tobacco Use Status: Never used Tobacco Review of Systems Const Reports as per [facility] Eyes Reports no additional complaints ENT Reports no additional complaints Card Reports as per [facility] Resp Reports as per HPI GI Reports as per HPI Reports as per HPI Neuro Reports no additional complaints Psych Reports as per [facility] Endo Reports as per HPI Jan/Lymph Reports no additional complaints Aller/Immun Reports no additional complaints Physical Exam Const General: cooperative, healthy appearing, comfortable, no acute distress, well developed, alert and awake Orientation/consciousness: patient oriented x3 HEENT Ears: hearing grossly normal bilaterally Resp Effort & Inspection: normal respiratory effort and able to speak in complete sentences Neuro General: patient oriented x3 Psych Appearance: grossly normal and well kempt Mental Status: mental status grossly normal Speech and movement: Normal speech and movement present and Clear speech present Affect: normal affect Attitude: cooperative Thought process: Normal thought process present Thought content: Normal thought content present Insight: Fair insight present (Psych) Judgement: Fair judgement present (Psych) Results Reviewed Results Reviewed: Date of Service: 08/02/23 EXAMINATION: CT KIDNEY STONE FINDINGS: CT ABDOMEN LUNG BASES: Coronal platelike atelectasis is seen in anterior left lung base, left lingular lobe inferior segment. LIVER: An oval shaped low density lesion is seen at the medial border of left hepatic lobe segment IVb, measuring 2.5 cm in AP diameter, 3.2 cm in width, 3.0 cm in vertical height, mean attenuation of 28 Hounsfield units. GALLBLADDER AND BILIARY TREE: Gallbladder is surgically absent with clips in the gallbladder fossa. Common bile duct is not dilated. SPLEEN: The spleen is normal in size without focal lesion on noncontrast enhanced images. PANCREAS: The pancreas appears unremarkable on noncontrast enhanced images. ADRENAL GLANDS: Adrenal glands are normal in size without focal lesion bilaterally. KIDNEYS: The visualized bilateral kidneys are normal in size with bilateral multiple renal calculi at all levels, with the largest calculi seen in lower left kidney measuring up to 0.8 cm in diameter. There is asymmetric marked thinning of right lateral lower renal cortex. No caliectasis or dilated pelvis is seen. No dilated ureters are found. BOWELS: There is no abnormal dilatation of the large and small bowel loops. RETROPERITONEUM: No abnormally enlarged retroperitoneal lymph nodes, mass or hematoma could be seen. BLOOD VESSELS: Abdominal aorta is normal in size with extensive atherosclerotic calcifications. ABDOMINAL WALL: Small umbilical hernia containing mesenteric fat is seen. PERITONEUM: There is no ascites. There were no abdominal peritoneal inflammatory changes seen. No free peritoneal air was seen. BONES: Advanced L5-S1 degenerative lumbar disc disease is present. No fracture or dislocation. No focal bone lesion diagnostic of metastatic disease could be seen in the lumbar region. CT PELVIS URINARY BLADDER: The visualized urinary bladder is normal, filled with urine. No intraluminal stones are found. No abnormally dilated distal ureters are seen. BOWELS: There is no abnormal dilatation of the large and small bowel loops. Normal appendix is seen projecting posterior and superior to the cecum. Multiple diverticula are seen in the sigmoid colon without inflammatory changes. GENITAL ORGANS: No adnexal mass lesion could be seen. The uterus is atrophic, containing a chunky calcified nodule in posterior left uterine fundus measuring 0.9 cm in diameter. LYMPH NODES: No abnormally enlarged iliac or inguinal lymph nodes are seen. PERITONEUM: No inflammatory changes, ascites or free peritoneal air are found in the pelvis. BONES: No fracture or dislocation. No focal bone lesion diagnostic of metastatic disease could be seen in the pelvis. IMPRESSION: 1. Bilateral multiple renal calculi at all levels, with the largest calculi seen in lower left kidney measuring up to 0.8 cm in diameter. 2. No evidence of hydronephrosis. 3. Asymmetric marked thinning of right lateral lower renal cortex, compatible with previous obstructive uropathy, renal infarction or pyelonephritis. 4. An oval shaped low density lesion is seen at the medial border of left hepatic lobe segment IVb. Further evaluation with pre and postcontrast MRI of abdomen is recommended. 5. Sigmoid diverticulosis without inflammatory changes. 6. Atrophic uterus containing a chunky calcified nodule in posterior left uterine fundus, compatible with calcified fibroid. Assessment & Plan Assessment & Plan (1) Urinary retention with incomplete bladder emptying: Code(s): R33.9 - Retention of urine, unspecified (2) Overactive bladder: Code(s): N32.81 - Overactive bladder (3) Bilateral nephrolithiasis: Code(s): N20.0 - Calculus of kidney Plan Recent CT results reviewed with the patient today; as noted above. She reports be happy with current voiding parameters on 75 mg of Gemtesa. Will continue with surveillance monitoring of nephrolithiasis at this time. Discussed at length risks and benefits of surgical intervention versus surveillance monitoring; this was discussed at length Discussed, educated, and stressed the importance of continuing to drink water daily. Continue vitamin B6 as prescribed. Continue adding 1 oz of lemon juice to water daily. Discussed further metabolic workup with 24 hour urine collection and labs; however patient declines at this Follow-up in 3 months; or sooner with any issues, concerns, and or questions. Patient Instructions: The patient had an opportunity to ask questions regarding the treatment plan. All questions were answered. Physical exam, labs, and imaging were discussed and reviewed in detail. As well as risks, benefits, and discussion of treatment choices. No major barriers to understanding were identified. The patient expressed understanding and agreement with the above treatment plan. The patient was made aware they should contact our office by phone for worsening of their current condition, the appearance of new symptoms, or with any questions or concerns. Compliance is encouraged with any medications and follow up testing that is ordered. It is a privilege to be allowed the opportunity to participate in? your urological care.? Again, if you have any questions or concerns If you have any questions or concerns please do not hesitate to contact me. The office is [phone]. This note is constructed using voice recognition software. While every effort has been made to ensure accuracy lamp replacer errors may have been included. Yours sincerely, TOMASZ Martinez- Telehealth Telehealth Location of provider rendering services: practice address Location of patient: address on file Patient Identification confirmed using: Name, : Yes Telehealth method: video Patient verbally consented to treatment: Yes Patient verbally consented to billing insurance company: Yes Patient informed of any privacy concerns related to visit: Yes Minutes spent on Phone/Video with Pt.: 20 Coding Level of Care Code Tele Est Pt Level 3 (98183) Diagnoses Urinary retention with incomplete bladder emptying R33.9 Overactive bladder N32.81 Bilateral nephrolithiasis N20.0 Time Spent (min) 20
== END 2023-08-05 16:26 | disposition home or self-care (01) ==
LOC: HO.HUSH 15:54
PROVIDERS: PCP Nurse Practitioner Gerontology; Visit Provider Nurse Practitioner Family
DX: R33.9 Retention of urine, unspecified (principal); N32.81 Overactive bladder; N20.0 Calculus of kidney
CPT/HCPCS: 99213

== ENCOUNTER → 2023-08-05 15:54 | Outpatient (BNVA) | payer MEDICARE, OTHER, SELFPAY | PROVIDERS: PCP Nurse Practitioner Gerontology; Visit Provider Nurse Practitioner Family ==

== ENCOUNTER 2023-09-17 07:24 | Day surgery (SDC) | payer MEDICARE, OTHER, SELFPAY ==
--- NOTE | 2023-09-13 13:14 | HO.ANESPROP2 ---
Documented by User: Edwige Casarez NP 09/13/23 13:14 HPI - Anesthesia Eval Consult details Narrative: 73yo F for Cystoscopy, Ureteroroscopy, Retro, Laser,with possible stent PMFSH Active Problems Active Problems: All Active Problems Urinary retention with incomplete bladder emptying (Acute) Overactive bladder (Acute) Bilateral nephrolithiasis (Acute) Past Medical History Medical History Diabetes HLD (hyperlipidemia) COPD (chronic obstructive pulmonary disease) IBS (irritable bowel syndrome) Depression Breast cancer Thyroid nodule HTN (hypertension) GERD (gastroesophageal reflux disease) Asthma Bilateral nephrolithiasis Overactive bladder Surgical History Surgical History Hx of lithotripsy S/P Botox injection (~2018) Status post left breast reconstruction (~2002) S/P thyroid biopsy (~2005) H/O left mastectomy (~2001) S/P parathyroidectomy (~2006) Social History Social History Household Members: Family Housing: House Alcohol intake: former Patient Tobacco Use Status: Never used Tobacco Advance Directives: No (unknown) Advance Directives Information Provided: Yes Advance Directives on File: No Meds Allergies Allergy/AdvReac Type Severity Reaction Status Date / Time latex Allergy Severe rash and Verified 09/17/23 07:52 difficulty breathing cefaclor Allergy Mild Unknown Verified 09/17/23 07:52 ciprofloxacin [From Cipro] Allergy Mild unknown Verified 09/17/23 07:52 codeine Allergy Mild unknown Verified 09/17/23 07:52 sulfamethoxazole Allergy Mild unknown Verified 09/17/23 07:52 [From Bactrim] trimethoprim [From Bactrim] Allergy Mild unknown Verified 09/17/23 07:52 Penicillins Allergy unknown Verified 09/17/23 07:52 Home Medications ?Medication ?Instructions ?Recorded ?Confirmed ?Last Taken ?Type blood sugar diagnostic #10 ea 04/29/20 06/28/23 Unknown History lancets 28 gauge #100 ea 04/29/20 06/28/23 Unknown History lisinopril 20 mg tablet 20 mg PO QAM 04/29/20 09/17/23 09/16/23 History metformin 500 mg tablet,extended 500 mg PO BID 04/29/20 09/17/23 09/16/23 History release 24 hr omeprazole 40 mg capsule,delayed 40 mg PO DAILY 04/29/20 09/17/23 09/17/23 History release atorvastatin 40 mg tablet 40 mg PO DAILY 07/06/20 09/17/23 09/16/23 History diphenoxylate-atropine 2.5 1 tab PO Q8H PRN loose stools 07/06/20 09/17/23 09/17/23 History mg-0.025 mg tablet nifedipine 30 mg tablet,extended 30 mg PO DAILY 07/05/22 09/17/23 09/17/23 History release sertraline 100 mg tablet 100 mg PO DAILY 07/05/22 09/17/23 09/17/23 History multivitamin (Multiple Vitamins 1 tab PO DAILY 06/28/23 09/17/23 09/16/23 History tablet) gabapentin 300 mg capsule 300 mg PO BID 08/05/23 09/17/23 09/16/23 History Exam Height,Weight and Vital Signs: Height 5 ft 1 in Assessment and Plan Assessment Anesthesia Assessment: Chart Reviewed Documented by User: Mercedes Love MD 09/17/23 09:09 [facility] Past Medical History Medical History Diabetes HLD (hyperlipidemia) COPD (chronic obstructive pulmonary disease) IBS (irritable bowel syndrome) Depression Breast cancer Thyroid nodule HTN (hypertension) GERD (gastroesophageal reflux disease) Asthma Bilateral nephrolithiasis Overactive bladder Surgical History Surgical History Hx of lithotripsy S/P Botox injection (~2018) Status post left breast reconstruction (~2002) S/P thyroid biopsy (~2005) H/O left mastectomy (~2001) S/P parathyroidectomy (~2006) History of Problems with Anesthesia: No Social History Social History Household Members: Family Housing: House Alcohol intake: former Patient Tobacco Use Status: Never used Tobacco Advance Directives: No (unknown) Advance Directives Information Provided: Yes Advance Directives on File: No Meds Allergies Allergy/AdvReac Type Severity Reaction Status Date / Time latex Allergy Severe rash and Verified 09/17/23 07:52 difficulty breathing cefaclor Allergy Mild Unknown Verified 09/17/23 07:52 ciprofloxacin [From Cipro] Allergy Mild unknown Verified 09/17/23 07:52 codeine Allergy Mild unknown Verified 09/17/23 07:52 sulfamethoxazole Allergy Mild unknown Verified 09/17/23 07:52 [From Bactrim] trimethoprim [From Bactrim] Allergy Mild unknown Verified 09/17/23 07:52 Penicillins Allergy unknown Verified 09/17/23 07:52 Home Medications ?Medication ?Instructions ?Recorded ?Confirmed ?Last Taken ?Type blood sugar diagnostic #10 ea 04/29/20 06/28/23 Unknown History lancets 28 gauge #100 ea 04/29/20 06/28/23 Unknown History lisinopril 20 mg tablet 20 mg PO QAM 04/29/20 09/17/23 09/16/23 History metformin 500 mg tablet,extended 500 mg PO BID 04/29/20 09/17/23 09/16/23 History release 24 hr omeprazole 40 mg capsule,delayed 40 mg PO DAILY 04/29/20 09/17/23 09/17/23 History release atorvastatin 40 mg tablet 40 mg PO DAILY 07/06/20 09/17/23 09/16/23 History diphenoxylate-atropine 2.5 1 tab PO Q8H PRN loose stools 07/06/20 09/17/23 09/17/23 History mg-0.025 mg tablet nifedipine 30 mg tablet,extended 30 mg PO DAILY 07/05/22 09/17/23 09/17/23 History release sertraline 100 mg tablet 100 mg PO DAILY 07/05/22 09/17/23 09/17/23 History multivitamin (Multiple Vitamins 1 tab PO DAILY 06/28/23 09/17/23 09/16/23 History tablet) gabapentin 300 mg capsule 300 mg PO BID 08/05/23 09/17/23 09/16/23 History Exam Airway Mallampati Class: III TM Dist: >3cm Neck ROM: Limited Loose/Missing/Broken Teeth: No Heart: RRR Lungs: CTA Assessment and Plan Assessment Anesthesia Assessment: Anesthesia Plan Discussed Final Anesthetic Review History of Problems with Anesthesia: No NPO: Yes ASA Class: III Final Preanesthetic Review: Meds/Allgs Chart Reviewed, Consent Obtained/Reviewed and Anes Risks/Benef Reviewed Patient Risk: Intermediate Procedure Risk: Low Anesthetic Plan Anesthetic Plan: GA Disposition: Standard PACU
--- NOTE | ~2023-09-17 | FL_ITS ---
EXAMINATION: XR FLUOROSCOPY WITH IMAGES CLINICAL INFORMATION: Left stone. COMPARISON: CT stone study 08/02/2023. TECHNIQUE: Fluoroscopy Supervised By: Primo Luu. Fluoroscopy Time: 44.7 seconds. Cumulative Dose: 16.89 mGy. DAP: Gycm2. Images: 3. FINDINGS: Intraoperative fluoroscopy and spot films were performed during a procedure in the OR. Images show placement of an internally dwelling left-sided double-J stent. Please see Dr. Primo Luu's report for complete details. FL/FL guidance in OR IMPRESSION: Intraoperative fluoroscopy and spot films were obtained. Please see Dr. Primo Luu's report for complete details.
[2023-09-17 07:46] VITALS: BMI 32.1
[2023-09-17 08:17] LABS: Glucose, Whole Blood 115 mg/dL (60-115)
[2023-09-17] MEDS: Lactated Ringers 1,000 ML 100 ML IVCONT (08:17)
--- NOTE | 2023-09-17 08:34 | MHC.SHP ---
Pre-Procedural Eval Section A - 24 Hr Update-Section A only Date of Service: 09/17/23 The patient is an INPATIENT: No The patient has been examined within 24 hours of the surgical procedure. The History & Physical has been completed within 30 days and I have reviewed it.: Yes Section B - Complete if H&P > 30 days Chief Complaint: Calculus of kidney Allergies: Allergies Allergy/AdvReac Type Severity Reaction Status Date / Time latex Allergy Severe rash and Verified 09/17/23 07:52 difficulty breathing cefaclor Allergy Mild Unknown Verified 09/17/23 07:52 ciprofloxacin [From Cipro] Allergy Mild unknown Verified 09/17/23 07:52 codeine Allergy Mild unknown Verified 09/17/23 07:52 sulfamethoxazole Allergy Mild unknown Verified 09/17/23 07:52 [From Bactrim] trimethoprim [From Bactrim] Allergy Mild unknown Verified 09/17/23 07:52 Penicillins Allergy unknown Verified 09/17/23 07:52 Plan Diagnosis/Plan: Unchanged I have reviewed the history and physical and performed a pertinent physical examination on my patient. No changes have occurred unless specified. Plan for Cystoscopy, left ureteroscopy, possible laser lithotripsy, possible ureteral stent. Risks discussed included but not limited to, possible need to repeat procedure if stone is not completely fragmented, Irritative voiding symptoms, bladder spasms, urgency, blood in urine. Time Spent With Patient Time: Total time managing care of this patient today ____ minutes.
[2023-09-17 10:10] VITALS: BP 175/82; PULSE 96; RESP 18; TEMP 36.8; O2SAT 98
[2023-09-17 10:15] VITALS: BP 173/84; PULSE 87; RESP 16; O2SAT 98
--- NOTE | 2023-09-17 10:18 | W.PM.OPN ---
Operative Note Operative Note Date of Service: 09/17/23 Narrative: PreOperative Diagnosis:?? Left renal calculi Post Operative Diagnosis:?? Left renal calculi Procedure: - Cystoscopy, left retrograde, left ureteroscopy laser lithotripsy, basket stone fragments stent insertion, 6 [place] by 24 cm Disposable flexible ureteroscope utilized Surgeon:?Dr Primo Luu Anesthesia:? General Indications for procedure: History of nephrolithiasis, CT imaging bilateral renal calculi largest stone left kidney lower pole 8 mm. Procedure: After informed consent was verified the patient was brought to the operating placed on the OR table in supine position.? General Anesthesia was administered per protocol.? The patient was placed in lithotomy position, prepped and draped in the usual sterile fashion.? Safety pause time-out and side of surgery confirmed.? Antibiotics confirmed. 1 g ceftriaxone, gentamicin 160 mg IV, 2% lidocaine jelly 10 mL was passed transurethrally. A 22 [place] cystoscope was inserted transurethrally. The bladder was visualized.? Both ureteric orifices were in normal position. An open-ended ureteral catheter was passed into the left ureteral orifice and a retrograde examination was performed. The ureter and renal pelvis was within normal limits there was no dilatation noted. A guidewire was passed through the ureteral catheter into the kidney. The balloon dilator size 12 fr x 4 cm was passed over the guide -wire; the balloon was inflated to 10 mmHg in the intramural ureter was dilated for 40 seconds. The balloon was deflated and removed. After removing the balloon dilator a 2nd guidewire was then passed into the kidney to use as a safety. The cystoscope was removed, leaving both guidewires in place. One guidewire was used as the safety and was attached to the draping. The Olympus semi-rigid ureteroscope short was then passed over the 2nd guidewire there were no stones in the ureter. After removing the semi-rigid ureteroscope, an access sheath, size 36 cm by 12 [place] was passed over 1 of the guidewires. There was some resistance noted in the mid ureter so the access sheath was removed and the disposable flexible ureteroscope 7.5 fr was then passed over the guidewire up into the kidney without difficulty or resistance. There were some tiny calcifications noted in the upper pole of the kidney. The largest stone in the left kidney was noted in the mid pole. Laser lithotripsy of the stone was done with settings 0.6 joules by 6 hertz alternating with 0.5 joules by 20 hertz. There was good fragmentation of the stone. The 0 degree basket was passed through the ureteroscope, several small fragments were removed to send for analysis. The cystoscope was passed over the safety guidewire. A? 6 [place]an by 24 cm stent was placed into the ureter and renal pelvis under a combination of fluoroscopy and direct visualization. The bladder was emptied.? The rigid cystoscope was removed. ? The patient tolerated the procedure well and was brought to the recovery room in stable condition. Complications: None Drains: Ureteral stent as dictated above
[2023-09-17 10:20] VITALS: BP 179/102; PULSE 94; RESP 16; O2SAT 92
[2023-09-17 10:25] VITALS: BP 165/89; PULSE 90; RESP 16; O2SAT 94
[2023-09-17 10:40] VITALS: BP 148/72; PULSE 85; RESP 16; TEMP 36.6; O2SAT 95
[2023-09-17] MEDS: Phenazopyridine HCL 200 MG TABLET PO (10:51)
[2023-10-08 16:17] LABS: Stone Source LEFT KIDNEY STONE
== END 2023-09-17 11:37 | disposition home or self-care (01) ==
PROVIDERS: PCP Nurse Practitioner Gerontology; Visit Provider Urology
PROC: (CPT 52356; principal; 2023-09-17 08:50)
DX: N20.0 Calculus of kidney (principal); Z87.442 Personal history of urinary calculi; N32.81 Overactive bladder; R33.9 Retention of urine, unspecified; J44.9 Chronic obstructive pulmonary disease, unspecified; I10 Essential (primary) hypertension; E78.5 Hyperlipidemia, unspecified; K21.9 Gastro-esophageal reflux disease without esophagitis; E11.9 Type 2 diabetes mellitus without complications; J45.909 Unspecified asthma, uncomplicated; Z85.3 Personal history of malignant neoplasm of breast; Z79.84 Long term (current) use of oral hypoglycemic drugs; Z79.899 Other long term (current) drug therapy; Z88.0 Allergy status to penicillin; Z88.1 Allergy status to other antibiotic agents; Z88.2 Allergy status to sulfonamides; Z88.5 Allergy status to narcotic agent; Z98.890 Other specified postprocedural states
CPT/HCPCS: 52356; 82365; 82947; 87086; 87088; 87186; 88300; C1726; C1758; C1769; C2617; J0131; J0696; J1100; J1580; J2250; J2405; J2704; J3010; Q9967

== ENCOUNTER → 2023-09-17 07:24 | Outpatient (BNV) | payer MEDICARE, OTHER, SELFPAY | PROVIDERS: PCP Nurse Practitioner Gerontology; Visit Provider Urology | DX: N20.0 Calculus of kidney (principal) | CPT/HCPCS: 52356; 74420 ==

== ENCOUNTER 2023-10-02 12:50 | Outpatient (AMB) | payer MEDICARE, OTHER, SELFPAY ==
--- NOTE | 2023-10-02 12:51 | A.OFFVIS_ITS ---
Intake Visit Reasons: follow up Intake Note: status post left ureteroscopy laser lithotripsy stent Blueprinting Machine Operator Required: No Allergies latex Allergy (Severe, Verified 10/02/23 12:51) rash and difficulty breathing cefaclor Allergy (Mild, Verified 10/02/23 12:51) Unknown ciprofloxacin [From Cipro] Allergy (Mild, Verified 10/02/23 12:51) unknown codeine Allergy (Mild, Verified 10/02/23 12:51) unknown sulfamethoxazole [From Bactrim] Allergy (Mild, Verified 10/02/23 12:51) unknown trimethoprim [From Bactrim] Allergy (Mild, Verified 10/02/23 12:51) unknown Penicillins Allergy (Verified 10/02/23 12:51) unknown HPI Comments Details: 10/02/23--Ofelia is being followed for nephrolithiasis and OAB. She is s/p Left ureteroscopy laser lithotripsy and stent insertion on 09/17/23. She states in general she is doing well. She states urine leakage is worse since the stent, denies cloudy urine. Plan KUB prior to stent removal. Review of chart: 08/05/23--Ofelia is a very pleasant 73-year-old female patient of Dr. Cruz. She has a past medical history of asthma, nephrolithiasis, breast cancer, depression, COPD, diabetes, GERD, hyperlipidemia, hypertension, IBS, overactive bladder, and thyroid nodule. She is following up today regarding her nephrolithiasis and urinary urgency and urinary frequency. Of note, patient was seen approximately 1 month ago at which time a CT KUB was ordered for further assessment evaluation for increased stone burden noted on recent renal ultrasound as well as bilateral flank pain patient has been experiencing. These results were reviewed with the patient today. Bilateral multiple renal calculi at all levels with the largest calculi seen in the lower left kidney measuring up to 0.8 cm in diameter. No hydronephrosis noted. In discussion with the patient today she continues to report bilateral intermittent flank pain. Discussed further surgical intervention versus surveillance monitoring. She reports to be following up with her social media campaign manager for GI issues she has also been experiencing. Discussed findings on CT with oval shaped low density lesion is seen at the medial border of left hepatic lobe segment IVb. Further evaluation with pre and postcontrast MRI of abdomen is recommended. Sigmoid diverticulosis without inflammatory changes. Patient with a previous longstanding history of nephrolithiasis with surgical interventions for her renal stones with Dr. Lauren. She otherwise denies urinary urgency, urinary frequency, incontinence, nocturia, hematuria, dysuria, foul smelling urine, changes to urinary stream, flank pain, fever, and or chills. Of note, patient has a history of multiple failed OAB medications however has been happy with her current voiding paramters on Gemtesa. Patient otherwise offers no issues or concerns at this time. She otherwise denies any other issues or concerns at this time. [facility] Medical History Diabetes HLD (hyperlipidemia) COPD (chronic obstructive pulmonary disease) IBS (irritable bowel syndrome) Depression Breast cancer Thyroid nodule HTN (hypertension) GERD (gastroesophageal reflux disease) Asthma Bilateral nephrolithiasis Overactive bladder Surgical History Hx of lithotripsy S/P Botox injection (~2018) Status post left breast reconstruction (~2002) S/P thyroid biopsy (~2005) H/O left mastectomy (~2001) S/P parathyroidectomy (~2006) Social History Household Members: Family Housing: House Alcohol intake: former Patient Tobacco Use Status: Never used Tobacco Review of Systems Const All systems reviewed & are unremarkable except as noted in HPI and below Reports no additional complaints Eyes Reports no additional complaints ENT Reports no additional complaints Card Reports no additional complaints Resp Reports no additional complaints GI Reports no additional complaints Reports as per HPI Musc Reports no additional complaints Skin/Breast Reports system reviewed and no additional complaints, except as documented Neuro Reports no additional complaints Psych Reports no additional complaints Endo Reports no additional complaints Jan/Lymph Reports no additional complaints Aller/Immun Reports no additional complaints Telehealth Telehealth Telehealth Platform: Telephone Location of provider rendering services: practice address Location of patient: address on file Patient Identification confirmed using: Name, : Yes Telehealth method: voice only Patient verbally consented to treatment: Yes Patient verbally consented to billing insurance company: Yes Patient informed of any privacy concerns related to visit: Yes Minutes spent on Phone/Video with Pt.: 15 Results Reviewed Results Reviewed: Date of Service: 08/02/23 EXAMINATION: CT KIDNEY STONE FINDINGS: CT ABDOMEN LUNG BASES: Coronal platelike atelectasis is seen in anterior left lung base, left lingular lobe inferior segment. LIVER: An oval shaped low density lesion is seen at the medial border of left hepatic lobe segment IVb, measuring 2.5 cm in AP diameter, 3.2 cm in width, 3.0 cm in vertical height, mean attenuation of 28 Hounsfield units. GALLBLADDER AND BILIARY TREE: Gallbladder is surgically absent with clips in the gallbladder fossa. Common bile duct is not dilated. SPLEEN: The spleen is normal in size without focal lesion on noncontrast enhanced images. PANCREAS: The pancreas appears unremarkable on noncontrast enhanced images. ADRENAL GLANDS: Adrenal glands are normal in size without focal lesion bilaterally. KIDNEYS: The visualized bilateral kidneys are normal in size with bilateral multiple renal calculi at all levels, with the largest calculi seen in lower left kidney measuring up to 0.8 cm in diameter. There is asymmetric marked thinning of right lateral lower renal cortex. No caliectasis or dilated pelvis is seen. No dilated ureters are found. BOWELS: There is no abnormal dilatation of the large and small bowel loops. RETROPERITONEUM: No abnormally enlarged retroperitoneal lymph nodes, mass or hematoma could be seen. BLOOD VESSELS: Abdominal aorta is normal in size with extensive atherosclerotic calcifications. ABDOMINAL WALL: Small umbilical hernia containing mesenteric fat is seen. PERITONEUM: There is no ascites. There were no abdominal peritoneal inflammatory changes seen. No free peritoneal air was seen. BONES: Advanced L5-S1 degenerative lumbar disc disease is present. No fracture or dislocation. No focal bone lesion diagnostic of metastatic disease could be seen in the lumbar region. CT PELVIS URINARY BLADDER: The visualized urinary bladder is normal, filled with urine. No intraluminal stones are found. No abnormally dilated distal ureters are seen. BOWELS: There is no abnormal dilatation of the large and small bowel loops. Normal appendix is seen projecting posterior and superior to the cecum. Multiple diverticula are seen in the sigmoid colon without inflammatory changes. GENITAL ORGANS: No adnexal mass lesion could be seen. The uterus is atrophic, containing a chunky calcified nodule in posterior left uterine fundus measuring 0.9 cm in diameter. LYMPH NODES: No abnormally enlarged iliac or inguinal lymph nodes are seen. PERITONEUM: No inflammatory changes, ascites or free peritoneal air are found in the pelvis. BONES: No fracture or dislocation. No focal bone lesion diagnostic of metastatic disease could be seen in the pelvis. IMPRESSION: 1. Bilateral multiple renal calculi at all levels, with the largest calculi seen in lower left kidney measuring up to 0.8 cm in diameter. 2. No evidence of hydronephrosis. 3. Asymmetric marked thinning of right lateral lower renal cortex, compatible with previous obstructive uropathy, renal infarction or pyelonephritis. 4. An oval shaped low density lesion is seen at the medial border of left hepatic lobe segment IVb. Further evaluation with pre and postcontrast MRI of abdomen is recommended. 5. Sigmoid diverticulosis without inflammatory changes. 6. Atrophic uterus containing a chunky calcified nodule in posterior left uterine fundus, compatible with calcified fibroid. Assessment & Plan Assessment & Plan (1) Bilateral nephrolithiasis: Code(s): N20.0 - Calculus of kidney Category: Medical (2) Ureteral stent present: Code(s): Z96.0 - Presence of urogenital implants Category: Medical Plan KUB Xray. call pt with results and next step in plan of care Orders: Orders XR KUB Today N20.0 - Calculus of kidney, Z96.0 - Presence of urogenital implants Patient Instructions: The patient had an opportunity to ask questions regarding treatment plan. The patient expressed understanding and agreement with the above treatment plan. The patient is aware they should contact our office by phone for worsening of their current condition or the appearance of new symptoms. Compliance is encouraged with any medications and followup testing that is ordered. It is a privilege to be allowed the opportunity to participate in the urologic care of your patient. If you have any questions or concerns regarding treatment for the above conditions please do not hesitate to contact me. The office telephone contact is [phone]. This note is constructed in part using voice recognition software. While every effort has been made to ensure accuracy county program technician errors may have been included. Yours sincerely, Primo Luu MD Coding Level of Care Code Tele New Pt Level 3 (27158) Diagnoses Bilateral nephrolithiasis N20.0 Ureteral stent present Z96.0
== END 2023-10-02 14:29 | disposition home or self-care (01) ==
LOC: HO.HUSH 12:50
PROVIDERS: PCP Nurse Practitioner Gerontology; Visit Provider Urology
DX: N20.0 Calculus of kidney (principal); Z96.0 Presence of urogenital implants
CPT/HCPCS: 99442

== ENCOUNTER → 2023-10-02 12:50 | Outpatient (BNVA) | payer MEDICARE, OTHER, SELFPAY | PROVIDERS: PCP Nurse Practitioner Gerontology; Visit Provider Urology ==

== ENCOUNTER 2023-10-03 11:02 | Outpatient (REF) | payer MEDICARE, OTHER, SELFPAY ==
--- NOTE | ~2023-10-03 | XR_ITS ---
EXAMINATION: XR ABDOMEN KUB CLINICAL INDICATION: Calculus of kidney Status post lithotripsy and stent COMPARISON: Fluoroscopic guidance in OR 09/17/2023, CT kidney stone 08/02/2023 TECHNIQUE: AP view of the abdomen. FINDINGS: The bowel gas pattern is normal with no evidence of ileus or obstruction. Both kidneys are significantly obscured by overlying bowel gas and stool. Probable multiple tiny calcifications in each kidney. Surgical clips are seen in the right upper quadrant. A left pigtail catheter projects over the left kidney, ureter and left side of the bladder. There are multiple calcifications in the pelvis, which likely represent phleboliths. The bones are unremarkable. XR/XR KUB IMPRESSION: Left pigtail catheter projects over the left kidney, ureter and left side of the bladder. Both kidneys are significantly obscured by overlying bowel gas and stool. Probable multiple tiny calcifications in each kidney
== END 2023-10-03 11:03 | disposition home or self-care (01) ==
LOC: HO.XRAY 11:02
PROVIDERS: Visit Provider Urology
DX: N20.0 Calculus of kidney (principal); Z96.0 Presence of urogenital implants
CPT/HCPCS: 74018

== ENCOUNTER 2023-10-14 13:49 | Outpatient (AMB) | payer MEDICARE, OTHER, SELFPAY ==
--- NOTE | 2023-10-14 13:49 | A.OFFVIS_ITS ---
Intake Visit Reasons: Discuss x-ray Intake Note: Patient presents today via telephone to discuss x-ray Urology Medications: tamsulosin Blood Thinner: None Career Information Specialist Required: No Accompanied by: Self / Same As Patient Allergies latex Allergy (Severe, Verified 10/02/23 12:51) rash and difficulty breathing cefaclor Allergy (Mild, Verified 10/02/23 12:51) Unknown ciprofloxacin [From Cipro] Allergy (Mild, Verified 10/02/23 12:51) unknown codeine Allergy (Mild, Verified 10/02/23 12:51) unknown sulfamethoxazole [From Bactrim] Allergy (Mild, Verified 10/02/23 12:51) unknown trimethoprim [From Bactrim] Allergy (Mild, Verified 10/02/23 12:51) unknown Penicillins Allergy (Verified 10/02/23 12:51) unknown HPI Comments Details: 10/14/23--KUB Xray - 10/03/23- film reviewed, radiologist sales order processor pending. Discussed findings with Ofelia, possible stone fragment along the stent, discussed left ureteroscopy, possible stone manipulation, stent removal versus stent exchange. Review of chart: 10/02/23--Ofelia is being followed for nephrolithiasis and OAB. She is s/p Left ureteroscopy laser lithotripsy and stent insertion on 09/17/23. She states in ge neral she is doing well. She states urine leakage is worse since the stent, denies cloudy urine. Plan KUB prior to stent removal. 08/05/23--Ofelia is a very pleasant 73-year-old female patient of Dr. Cruz. She has a past medical history of asthma, nephrolithiasis, breast cancer, depression, COPD, diabetes, GERD, hyperlipidemia, hypertension, IBS, overactive bladder, and thyroid nodule. She is following up today regarding her nephrolithiasis and urinary urgency and urinary frequency. Of note, patient was seen approximately 1 month ago at which time a CT KUB was ordered for further a ssessment evaluation for increased stone burden noted on recent renal ultrasound as well as bilateral flank pain patient has been experiencing. These results were reviewed with the patient today. Bilateral multiple renal calculi at all levels with the largest calculi seen in the lower left kidney measuring up to 0.8 cm in diameter. No hydronephrosis noted. In discussion with the patient today she continues to report bilateral intermittent flank pain. Discussed further surgical intervention versus surveillance monitoring. She reports to be following up with her nurse coordinator for GI issues she has also been experiencing. Discussed findings on CT with oval shaped low density lesion is seen at the medial border of left hepatic lobe segment IVb. Further evaluation with pre and postcontrast MRI of abdomen is recommended. Sigmoid diverticulosis without inflammatory changes. Patient with a previous longstanding history of nephrolithiasis with surgical interventions for her renal stones with Dr. Lauren. She otherwise denies urinary urgency, urinary frequency, incontinence, nocturia, hematuria, dysuria, foul smelling urine, changes to urinary stream, flank pain, fever, and or chills. Of note, patient has a history of multiple failed OAB medications however has been happy with her current voiding paramters on Gemtesa. Patient otherwise offers no issues or concerns at this time. She otherwise denies any other issues or concerns at this time. [facility] Medical History Diabetes HLD (hyperlipidemia) COPD (chronic obstructive pulmonary disease) IBS (irritable bowel syndrome) Depression Breast cancer Thyroid nodule HTN (hypertension) GERD (gastroesophageal reflux disease) Asthma Bilateral nephrolithiasis Overactive bladder Surgical History Hx of lithotripsy S/P Botox injection (~2018) Status post left breast reconstruction (~2002) S/P thyroid biopsy (~2005) H/O left mastectomy (~2001) S/P parathyroidectomy (~2006) Social History Household Members: Family Housing: House Alcohol intake: former Patient Tobacco Use Status: Never used Tobacco Telehealth Telehealth Telehealth Platform: Telephone Location of provider rendering services: practice address Location of patient: address on file Patient Identification confirmed using: Name, : Yes Telehealth method: voice only Patient verbally consented to treatment: Yes Patient verbally consented to billing insurance company: Yes Patient informed of any privacy concerns related to visit: Yes Minutes spent on Phone/Video with Pt.: 15 Assessment & Plan Assessment & Plan (1) Bilateral nephrolithiasis: Code(s): N20.0 - Calculus of kidney Category: Medical (2) Ureteral stent present: Code(s): Z96.0 - Presence of urogenital implants Category: Medical Plan OR Left ureteroscopy, stent removal possible stent exchange, possible laser lith otripsy. Patient Instructions: The patient had an opportunity to ask questions regarding treatment plan. The patient expressed understanding and agreement with the above treatment plan. The patient is aware they should contact our office by phone for worsening of their current condition or the appearance of new symptoms. Compliance is encouraged with any medications and followup testing that is ordered. It is a privilege to be allowed the opportunity to participate in the urologic care of your patient. If you have any questions or concerns regarding treatment for the above conditions please do not hesitate to contact me. The office telephone contact is [phone]. This note is constructed in part using voice recognition software. While every effort has been made to ensure accuracy sales order processor errors may have been included. Yours sincerely, Primo Luu MD Coding Level of Care Code Tele Est Pt Level 3 (09026) Diagnoses Bilateral nephrolithiasis N20.0 Ureteral stent present Z96.0
== END 2023-10-14 16:30 | disposition home or self-care (01) ==
LOC: HO.HUSH 13:49
PROVIDERS: PCP Nurse Practitioner Gerontology; Visit Provider Urology
DX: N20.0 Calculus of kidney (principal); Z96.0 Presence of urogenital implants
CPT/HCPCS: 99442

== ENCOUNTER → 2023-10-14 13:49 | Outpatient (BNVA) | payer MEDICARE, OTHER, SELFPAY | PROVIDERS: PCP Nurse Practitioner Gerontology; Visit Provider Urology ==

== ENCOUNTER 2023-10-29 08:08 | Day surgery (SDC) | payer MEDICARE, OTHER, SELFPAY ==
[2023-10-25 09:36] VITALS: BMI 32.1
--- NOTE | 2023-10-28 09:37 | P.CONAN_ITS ---
Documented by User: Edwige Casarez NP 10/28/23 09:38 HPI - Anesthesia Eval Consult details Narrative: 73yo F for Left Cystoscopy, Ureteroroscopy, Retro, Laser with stent exchange s/p cysto etc 09/2023 with [facility]A-[facility] Active Problems Active Problems: All Active Problems Ureteral stent present (Acute) Urinary retention with incomplete bladder emptying (Acute) Overactive bladder (Acute) Bilateral nephrolithiasis (Acute) Past Medical History Medical History Diabetes HLD (hyperlipidemia) COPD (chronic obstructive pulmonary disease) IBS (irritable bowel syndrome) Depression Breast cancer Thyroid nodule HTN (hypertension) GERD (gastroesophageal reflux disease) Asthma Bilateral nephrolithiasis Overactive bladder Surgical History Surgical History Hx of cystoscopy Hx of lithotripsy S/P Botox injection (~2018) Status post left breast reconstruction (~2002) S/P thyroid biopsy (~2005) H/O left mastectomy (~2001) S/P parathyroidectomy (~2006) History of Problems with Anesthesia: No Social History Social History Household Members: Family Housing: House Alcohol intake: former Patient Tobacco Use Status: Never used Tobacco Advance Directives: No (unknown) Advance Directives Information Provided: Yes Meds Allergies Allergy/AdvReac Type Severity Reaction Status Date / Time latex Allergy Severe rash and Verified 10/02/23 12:51 difficulty breathing cefaclor Allergy Mild Rash Verified 10/29/23 08:41 ciprofloxacin [From Cipro] Allergy Mild Rash Verified 10/29/23 08:41 codeine Allergy Mild Rash Verified 10/29/23 08:41 sulfamethoxazole Allergy Mild Rash Verified 10/29/23 08:41 [From Bactrim] trimethoprim [From Bactrim] Allergy Mild Rash Verified 10/29/23 08:41 Penicillins Allergy Unknown unknown Verified 10/29/23 08:41 Home Medications ?Medication ?Instructions ?Recorded ?Confirmed ?Last Taken ?Type blood sugar diagnostic #10 ea 04/29/20 06/28/23 Unknown History lancets 28 gauge #100 ea 04/29/20 06/28/23 Unknown History lisinopril 20 mg tablet 20 mg PO QAM 04/29/20 10/25/23 09/16/23 History metformin 500 mg tablet,extended 500 mg PO BID 04/29/20 10/25/23 09/16/23 History release 24 hr omeprazole 40 mg capsule,delayed 40 mg PO DAILY 04/29/20 10/25/23 10/29/23 History release atorvastatin 40 mg tablet 40 mg PO DAILY 07/06/20 10/25/23 09/16/23 History diphenoxylate-atropine 2.5 1 tab PO Q8H PRN loose stools 07/06/20 10/25/23 10/29/23 History mg-0.025 mg tablet nifedipine 30 mg tablet,extended 30 mg PO DAILY 07/05/22 10/25/23 10/29/23 History release sertraline 100 mg tablet 100 mg PO DAILY 07/05/22 10/25/23 10/29/23 History multivitamin (Multiple Vitamins 1 tab PO DAILY 06/28/23 10/25/23 09/16/23 History tablet) gabapentin 300 mg capsule 300 mg PO BID 08/05/23 10/25/23 09/16/23 History Exam Height,Weight and Vital Signs: Height 5 ft 1 in Weight 77.111 kg Assessment and Plan Assessment Anesthesia Assessment: Chart Reviewed Final Anesthetic Review History of Problems with Anesthesia: No Documented by User: Mercedes Love MD 10/29/23 09:18 [facility] Past Medical History Medical History Diabetes HLD (hyperlipidemia) COPD (chronic obstructive pulmonary disease) IBS (irritable bowel syndrome) Depression Breast cancer Thyroid nodule HTN (hypertension) GERD (gastroesophageal reflux disease) Asthma Bilateral nephrolithiasis Overactive bladder Surgical History Surgical History Hx of cystoscopy Hx of lithotripsy S/P Botox injection (~2018) Status post left breast reconstruction (~2002) S/P thyroid biopsy (~2005) H/O left mastectomy (~2001) S/P parathyroidectomy (~2006) Social History Social History Household Members: Family Housing: House Alcohol intake: former Patient Tobacco Use Status: Never used Tobacco Advance Directives: No (unknown) Advance Directives Information Provided: Yes Meds Allergies Allergy/AdvReac Type Severity Reaction Status Date / Time latex Allergy Severe rash and Verified 10/02/23 12:51 difficulty breathing cefaclor Allergy Mild Rash Verified 10/29/23 08:41 ciprofloxacin [From Cipro] Allergy Mild Rash Verified 10/29/23 08:41 codeine Allergy Mild Rash Verified 10/29/23 08:41 sulfamethoxazole Allergy Mild Rash Verified 10/29/23 08:41 [From Bactrim] trimethoprim [From Bactrim] Allergy Mild Rash Verified 10/29/23 08:41 Penicillins Allergy Unknown unknown Verified 10/29/23 08:41 Home Medications ?Medication ?Instructions ?Recorded ?Confirmed ?Last Taken ?Type blood sugar diagnostic #10 ea 04/29/20 06/28/23 Unknown History lancets 28 gauge #100 ea 04/29/20 06/28/23 Unknown History lisinopril 20 mg tablet 20 mg PO QAM 04/29/20 10/25/23 09/16/23 History metformin 500 mg tablet,extended 500 mg PO BID 04/29/20 10/25/23 09/16/23 History release 24 hr omeprazole 40 mg capsule,delayed 40 mg PO DAILY 04/29/20 10/25/23 10/29/23 History release atorvastatin 40 mg tablet 40 mg PO DAILY 07/06/20 10/25/23 09/16/23 History diphenoxylate-atropine 2.5 1 tab PO Q8H PRN loose stools 07/06/20 10/25/23 10/29/23 History mg-0.025 mg tablet nifedipine 30 mg tablet,extended 30 mg PO DAILY 07/05/22 10/25/23 10/29/23 History release sertraline 100 mg tablet 100 mg PO DAILY 07/05/22 10/25/23 10/29/23 History multivitamin (Multiple Vitamins 1 tab PO DAILY 06/28/23 10/25/23 09/16/23 History tablet) gabapentin 300 mg capsule 300 mg PO BID 08/05/23 10/25/23 09/16/23 History Exam Airway Mallampati Class: II TM Dist: >3cm Neck ROM: Full Loose/Missing/Broken Teeth: No Heart: RRR Lungs: CTA Assessment and Plan Assessment Anesthesia Assessment: Anesthesia Plan Discussed Final Anesthetic Review NPO: Yes ASA Class: III Final Preanesthetic Review: Meds/Allgs Chart Reviewed, Consent Obtained/Reviewed and Anes Risks/Benef Reviewed Patient Risk: Intermediate Procedure Risk: Low Anesthetic Plan Anesthetic Plan: GA Disposition: Standard PACU
[2023-10-29] VITALS (7 sets, daily range): BP systolic 121–153; BP diastolic 51–63; PULSE 68–77; RESP 14–19; TEMP 36.2–36.4; O2SAT 92–99
--- NOTE | ~2023-10-29 | FL_ITS ---
EXAMINATION: XR FLUOROSCOPY WITH IMAGES CLINICAL INFORMATION: Left-sided stone. COMPARISON: None available. TECHNIQUE: Fluoroscopy Supervised By: Dr. Primo Luu. Fluoroscopy Time: 0.03.7 minutes. Cumulative Dose: 0.9751 mGy. DAP: 0.4242 Gy-cm2. Images: 6. FINDINGS: Intraoperative fluoroscopy and spot films were performed during a procedure in the OR. A guidewire is seen in the left renal collecting system with placement of a presumed double-J internally dwelling ureteral catheter. The proximal end is coiled in the region of the renal pelvis, the distal end is not imaged. Please correlate with Dr. Primo Luu's report for complete details. FL/FL guidance in OR IMPRESSION: Intraoperative fluoroscopy and spot films were obtained. Please see Dr. Primo Luu's report for complete details.
[2023-10-29 08:32] LABS: Glucose, Whole Blood 107 mg/dL (60-115)
[2023-10-29] MEDS: Lactated Ringers 1,000 ML 100 ML IVCONT (08:55)
--- NOTE | 2023-10-29 09:07 | MHC.SHP ---
Pre-Procedural Eval Section A - 24 Hr Update-Section A only Date of Service: 10/29/23 The patient is an INPATIENT: No The patient has been examined within 24 hours of the surgical procedure. The History & Physical has been completed within 30 days and I have reviewed it.: Yes Section B - Complete if H&P > 30 days Chief Complaint: Calculus of kidney Allergies: Allergies Allergy/AdvReac Type Severity Reaction Status Date / Time latex Allergy Severe rash and Verified 10/02/23 12:51 difficulty breathing cefaclor Allergy Mild Rash Verified 10/29/23 08:41 ciprofloxacin [From Cipro] Allergy Mild Rash Verified 10/29/23 08:41 codeine Allergy Mild Rash Verified 10/29/23 08:41 sulfamethoxazole Allergy Mild Rash Verified 10/29/23 08:41 [From Bactrim] trimethoprim [From Bactrim] Allergy Mild Rash Verified 10/29/23 08:41 Penicillins Allergy Unknown unknown Verified 10/29/23 08:41 Plan Diagnosis/Plan: Unchanged I have reviewed the history and physical and performed a pertinent physical examination on my patient. No changes have occurred unless specified. Cystoscopy left retrograde possible ureteroscopy removal left ureteral stent. Discussed risks to include but not limited to, blood in the urine, burning with urination, urgency. Time Spent With Patient Time: Total time managing care of this patient today ____ minutes.
--- NOTE | 2023-10-29 09:53 | P.OP_ITS ---
Operative Note Operative Note Date of Service: 10/29/23 Narrative: PreOperative Diagnosis:?? Left renal calculi, status post laser lithotripsy ureteral stent Post Operative Diagnosis:?? ?Left renal calculi, status post laser lithotripsy ureteral stent Procedure: - cystoscopy, left ureteroscopy, left ureteral stent removal Surgeon:?Dr Primo Luu Anesthesia:? General Procedure: After informed consent was verified the patient was brought to the operating placed on the OR table in supine position.? General Anesthesia was administered per protocol.? The patient was placed in lithotomy position, prepped and draped in the usual sterile fashion.? Safety pause time-out and side of surgery confirmed.? Antibiotics confirmed. A 22 Hebrew cystoscope was inserted transurethrally. The bladder was visualized.? Both ureteric orifices were in normal position. Mild edema left ureteral orifice which is expected, the distal end of ureteral stent visualized. The grasping forceps were used and the stent was pulled out of the urethra and a hydrophilic guidewire was passed through the stent up into the renal pelvis. The stent was removed. The semi-rigid ureteroscope was then passed alongside the stent up to the UPJ there were no ureteral fragments noted in the ureter. The ureteroscope was removed. The cystoscope was replaced and the guidewire was removed there was good efflux of urine noted from the left ureteral orifice. The bladder was emptied.? The rigid cystoscope was removed. ? 2% lidocaine Uro jet 10 mL, was passed transurethrally into the bladder The patient tolerated the procedure well and was brought to the recovery room in stable condition. Complications: None Drains: None
[2023-10-29] MEDS: Phenazopyridine HCL 200 MG TABLET PO (10:16)
[2023-10-29] MEDS: Acetaminophen 325 MG TABLET 650 MG PO (10:16)
== END 2023-10-29 10:54 | disposition home or self-care (01) ==
PROVIDERS: PCP Internal Medicine; Visit Provider Urology
PROC: (CPT 52310; principal; 2023-10-29 10:00)
DX: N20.0 Calculus of kidney (principal); Z96.0 Presence of urogenital implants; N32.81 Overactive bladder; Z87.442 Personal history of urinary calculi; I10 Essential (primary) hypertension; E11.9 Type 2 diabetes mellitus without complications; J44.9 Chronic obstructive pulmonary disease, unspecified; Z85.3 Personal history of malignant neoplasm of breast; Z79.84 Long term (current) use of oral hypoglycemic drugs; Z79.899 Other long term (current) drug therapy; Z91.040 Latex allergy status; Z88.0 Allergy status to penicillin; Z88.1 Allergy status to other antibiotic agents; Z88.2 Allergy status to sulfonamides; Z88.5 Allergy status to narcotic agent; Z98.890 Other specified postprocedural states
CPT/HCPCS: 52310; 82947; 87086; C1758; C1769; J0690; J1100; J2405; J2704; J3010; Q9967

== ENCOUNTER → 2023-10-29 08:08 | Outpatient (BNV) | payer MEDICARE, OTHER, SELFPAY | PROVIDERS: PCP Internal Medicine; Visit Provider Urology | DX: N20.0 Calculus of kidney (principal); Z96.0 Presence of urogenital implants | CPT/HCPCS: 52310 ==

== ENCOUNTER 2023-11-20 13:11 | Outpatient (AMB) | payer MEDICARE, OTHER, SELFPAY ==
--- NOTE | 2023-11-20 13:13 | A.OFFVIS_ITS ---
Intake Visit Reasons: Ureteroscopy/Stone extraction follow up Intake Note: Patient presents today via telephone to discuss x-ray Urology Medications: tamsulosin,macrobid,percocet,phenazopyridine,gemtesa Blood Thinner: None Medical Aide Required: No Accompanied by: Self / Same As Patient Allergies latex Allergy (Severe, Verified 11/20/23 13:15) rash and difficulty breathing cefaclor Allergy (Mild, Verified 11/20/23 13:15) Rash ciprofloxacin [From Cipro] Allergy (Mild, Verified 11/20/23 13:15) Rash codeine Allergy (Mild, Verified 11/20/23 13:15) Rash sulfamethoxazole [From Bactrim] Allergy (Mild, Verified 11/20/23 13:15) Rash trimethoprim [From Bactrim] Allergy (Mild, Verified 11/20/23 13:15) Rash Penicillins Allergy (Unknown, Verified 11/20/23 13:15) unknown HPI Comments Details: 11/20/2023--Ofelia is being followed for nephrolithiasis and overactive bladder. She is status post ureteroscopy stent removal on 10/29/2023. He is on gemtesa for overactive bladder. She states she has been well since then. I have discussed further evaluation with 24 hour urine collection. Will continue Gemtesa, discontinue tamsulosin. Review of chart: 10/14/23--KUB Xray - 10/03/23- film reviewed, radiologist vision therapist pending. Discussed findings with Ofelia, possible stone fragment along the stent, discussed left ureteroscopy, possible stone manipulation, stent removal versus stent exchange. 10/02/23--Ofelia is being followed for nephrolithiasis and OAB. She is s/p Left ureteroscopy laser lithotripsy and stent insertion on 09/17/23. She states in general she is doing well. She states urine leakage is worse since the stent, denies cloudy urine. Plan KUB prior to stent removal. 08/05/23--Ofelia is a very pleasant 73-year-old female patient of Dr. Cruz. She has a past medical history of asthma, nephrolithiasis, breast cancer, depression, COPD, diabetes, GERD, hyperlipidemia, hypertension, IBS, overactive bladder, and thyroid nodule. She is following up today regarding her nephrolithiasis and urinary urgency and urinary frequency. Of note, patient was seen approximately 1 month ago at which time a CT KUB was ordered for further assessment evaluation for increased stone burden noted on recent renal ultrasound as well as bilateral flank pain patient has been experiencing. These results were reviewed with the patient today. Bilateral multiple renal calculi at all levels with the largest calculi seen in the lower left kidney measuring up to 0.8 cm in diameter. No hydronephrosis noted. In discussion with the patient today she continues to report bilateral intermittent flank pain. Discussed further surgical intervention versus surveillance monitoring. 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 Discussed findings on CT with oval shaped low density lesion is seen at the medial border of left hepatic lobe segment IVb. Further evaluation with pre and postcontrast MRI of abdomen is recommended. Sigmoid diverticulosis without inflammatory changes. Patient with a previous longstanding history of nephrolithiasis with surgical interventions for her bhavana l stones with Dr. Lauren. She otherwise denies urinary urgency, urinary frequency, incontinence, nocturia, hematuria, dysuria, foul smelling urine, changes to urinary stream, flank pain, fever, and or chills. Of note, patient has a history of multiple failed OAB medications however has been happy with her current voiding paramters on Gemtesa. Patient otherwise offers no issues or concerns at this time. She otherwise denies any other issues or concerns at this time. [facility] Medical History Diabetes HLD (hyperlipidemia) COPD (chronic obstructive pulmonary disease) IBS (irritable bowel syndrome) Depression Breast cancer Thyroid nodule HTN (hypertension) GERD (gastroesophageal reflux disease) Asthma Bilateral nephrolithiasis Overactive bladder Surgical History Hx of cystoscopy Hx of lithotripsy S/P Botox injection (~2018) Status post left breast reconstruction (~2002) S/P thyroid biopsy (~2005) H/O left mastectomy (~2001) S/P parathyroidectomy (~2006) Social History Household Members: Family Housing: House Alcohol intake: former Patient Tobacco Use Status: Never used Tobacco Review of Systems Const All systems reviewed & are unremarkable except as noted in HPI and below Reports no additional complaints Eyes Reports no additional complaints ENT Reports no additional complaints Card Reports no additional complaints Resp Reports no additional complaints GI Reports no additional complaints Reports as per HPI Musc Reports no additional complaints Skin/Breast Reports system reviewed and no additional complaints, except as documented Neuro Reports no additional complaints Psych Reports no additional complaints Endo Reports no additional complaints Jan/Lymph Reports no additional complaints Aller/Immun Reports no additional complaints Results Reviewed Results Reviewed: Date of Service: 08/02/23 EXAMINATION: CT KIDNEY STONE FINDINGS: CT ABDOMEN LUNG BASES: Coronal platelike atelectasis is seen in anterior left lung base, left lingular lobe inferior segment. LIVER: An oval shaped low density lesion is seen at the medial border of left hepatic lobe segment IVb, measuring 2.5 cm in AP diameter, 3.2 cm in width, 3.0 cm in vertical height, mean attenuation of 28 Hounsfield units. GALLBLADDER AND BILIARY TREE: Gallbladder is surgically absent with clips in the gallbladder fossa. Common bile duct is not dilated. SPLEEN: The spleen is normal in size without focal lesion on noncontrast enhanced images. PANCREAS: The pancreas appears unremarkable on noncontrast enhanced images. ADRENAL GLANDS: Adrenal glands are normal in size without focal lesion bilaterally. KIDNEYS: The visualized bilateral kidneys are normal in size with bilateral multiple renal calculi at all levels, with the largest calculi seen in lower left kidney measuring up to 0.8 cm in diameter. There is asymmetric marked thinning of right lateral lower renal cortex. No caliectasis or dilated pelvis is seen. No dilated ureters are found. BOWELS: There is no abnormal dilatation of the large and small bowel loops. RETROPERITONEUM: No abnormally enlarged retroperitoneal lymph nodes, mass or hematoma could be seen. BLOOD VESSELS: Abdominal aorta is normal in size with extensive atherosclerotic calcifications. ABDOMINAL WALL: Small umbilical hernia containing mesenteric fat is seen. PERITONEUM: There is no ascites. There were no abdominal peritoneal inflammatory changes seen. No free peritoneal air was seen. BONES: Advanced L5-S1 degenerative lumbar disc disease is present. No fracture or dislocation. No focal bone lesion diagnostic of metastatic disease could be seen in the lumbar region. CT PELVIS URINARY BLADDER: The visualized urinary bladder is normal, filled with urine. No intraluminal stones are found. No abnormally dilated distal ureters are seen. BOWELS: There is no abnormal dilatation of the large and small bowel loops. Normal appendix is seen projecting posterior and superior to the cecum. Multiple diverticula are seen in the sigmoid colon without inflammatory changes. GENITAL ORGANS: No adnexal mass lesion could be seen. The uterus is atrophic, containing a chunky calcified nodule in posterior left uterine fundus measuring 0.9 cm in diameter. LYMPH NODES: No abnormally enlarged iliac or inguinal lymph nodes are seen. PERITONEUM: No inflammatory changes, ascites or free peritoneal air are found in the pelvis. BONES: No fracture or dislocation. No focal bone lesion diagnostic of metastatic disease could be seen in the pelvis. IMPRESSION: 1. Bilateral multiple renal calculi at all levels, with the largest calculi seen in lower left kidney measuring up to 0.8 cm in diameter. 2. No evidence of hydronephrosis. 3. Asymmetric marked thinning of right lateral lower renal cortex, compatible with previous obstructive uropathy, renal infarction or pyelonephritis. 4. An oval shaped low density lesion is seen at the medial border of left hepatic lobe segment IVb. Further evaluation with pre and postcontrast MRI of abdomen is recommended. 5. Sigmoid diverticulosis without inflammatory changes. 6. Atrophic uterus containing a chunky calcified nodule in posterior left uterine fundus, compatible with calcified fibroid. Assessment & Plan Assessment & Plan (1) Bilateral nephrolithiasis: Code(s): N20.0 - Calculus of kidney Category: Medical (2) Overactive bladder: Code(s): N32.81 - Overactive bladder Category: Medical Plan further evaluation with 24 hour urine collection. Will continue Gemtesa, discontinue tamsulosin. Medications: Refilled vibegron (Gemtesa) 75 mg PO DAILY 90 days 90 tabs 3RF N32.81 - Overactive bladder Patient Instructions: The patient had an opportunity to ask questions regarding treatment plan. The patient expressed understanding and agreement with the above treatment plan. The patient is aware they should contact our office by phone for worsening of their current condition or the appearance of new symptoms. Compliance is encouraged with any medications and followup testing that is ordered. It is a privilege to be allowed the opportunity to participate in the urologic care of your patient. If you have any questions or concerns regarding treatment for the above conditions please do not hesitate to contact me. The office telephone contact is [phone]. This note is constructed in part using voice recognition software. While every effort has been made to ensure accuracy vision therapist errors may have been included. Yours sincerely, Primo Luu MD Coding Level of Care Code Est Pt Level 4 (37684) Diagnoses Bilateral nephrolithiasis N20.0 Overactive bladder N32.81
== END 2023-11-20 13:38 | disposition home or self-care (01) ==
PROVIDERS: PCP Nurse Practitioner Gerontology; Visit Provider Urology
DX: N20.0 Calculus of kidney (principal); N32.81 Overactive bladder
CPT/HCPCS: 99214

== ENCOUNTER → 2023-11-20 13:11 | Outpatient (BNVA) | payer MEDICARE, OTHER, SELFPAY | PROVIDERS: PCP Nurse Practitioner Gerontology; Visit Provider Urology | DX: N20.0 Calculus of kidney (principal); N32.81 Overactive bladder; Z79.899 Other long term (current) drug therapy | CPT/HCPCS: 99212 ==

== ENCOUNTER 2024-03-13 15:29 | Outpatient (AMB) | payer MEDICARE, OTHER, SELFPAY ==
--- NOTE | 2024-03-13 15:27 | MHC.OFFVIS ---
Intake Visit Reasons: 3M Follow Up-L[facility](set) Intake Note: Patient is present for 3M/LITHOL[facility] Urology Medication: VIBEGRON Antibiotic Allergy:CIPROFLOXACIN,SULFA,PENICILLINS Blood Thinner:NONE Bowling Ball Patcher Required: No Allergies latex Allergy (Severe, Verified 03/13/24 15:29) rash and difficulty breathing cefaclor Allergy (Mild, Verified 03/13/24 15:29) Rash ciprofloxacin [From Cipro] Allergy (Mild, Verified 03/13/24 15:29) Rash codeine Allergy (Mild, Verified 03/13/24 15:29) Rash sulfamethoxazole [From Bactrim] Allergy (Mild, Verified 03/13/24 15:29) Rash trimethoprim [From Bactrim] Allergy (Mild, Verified 03/13/24 15:29) Rash Penicillins Allergy (Unknown, Verified 03/13/24 15:29) unknown Medication List - Last Reconciled 03/14/24 by Primo Luu MD atorvastatin 40 mg PO DAILY blood sugar diagnostic As directed diphenoxylate-atropine 2.5-0.025 mg 1 tab PO Q8H PRN gabapentin 300 mg PO BID lancets As directed lisinopril 20 mg PO QAM metformin ER 500 mg PO BID multivitamin (Multiple Vitamins tablet) 1 tab PO DAILY nifedipine ER 30 mg PO DAILY omeprazole 40 mg PO DAILY phenazopyridine (Azo Urinary Pain Relief) 199 mg (2 x 99.5 mg) PO Q8H PRN sertraline 100 mg PO DAILY solifenacin (Vesicare) 5 mg PO DAILY tamsulosin 0.4 mg PO BEDTIME 14 days vibegron (Gemtesa) 75 mg PO DAILY 90 days HPI Comments Details: 03/13/24-- Discussed 24 hour urine results: Total volume 1.87 L, Calcium 57 mg; Oxalate 45 mg, Sodium , Citrate 121 mg. Instructed on importance of fluid intake, Low oxalate diet, vitamin B6 100 mg daily Ofelia complains that she is getting up more at nighttime and she feels like her urethra is spasming she states she has felt this before when she is passing a kidney stone. She states that the [employer] works during the day and she has less urgency and leakage but the nighttime is very bothersome. Will add VESIcare 5 mg at bedtime and will place on Flomax for a week to facilitate if she is passing a small stone. The patient states that she had a lot of pain after the procedure in October, (ureteroscope and stent removal was done at that time) compared to the prior procedure I explained that sometimes after scoping the ureter there can be edema and ureteral spasming. Review of chart: 11/20/2023--Ofelia is being followed for nephrolithiasis and overactive bladder. She is status post ureteroscopy stent removal on 10/29/2023. He is on gemtesa for overactive bladder. She states she has been well since then. I have discussed further evaluation with 24 hour urine collection. Will continue Gemtesa, discontinue tamsulosin. 10/14/23--KUB Xray - 10/03/23- film reviewed, radiologist shipping and receiving clerk pending. Discussed findings with Ofelia, possible stone fragment along the stent, discussed left ureteroscopy, possible stone manipulation, stent removal versus stent exchange. 10/02/23--Ofelia is being followed for nephrolithiasis and OAB. She is s/p Left ureteroscopy laser lithotripsy and stent insertion on 09/17/23. She states in general she is doing well. She states urine leakage is worse since the stent, denies cloudy urine. Plan KUB prior to stent removal. 08/05/23--Ofelia is a very pleasant 73-year-old female patient of Dr. Cruz. She has a past medical history of asthma, nephrolithiasis, breast cancer, depression, COPD, diabetes, GERD, hyperlipidemia, hypertension, IBS, overactive bladder, and thyroid nodule. She is following up today regarding her nephrolithiasis and urinary urgency and urinary frequency. Of note, patient was seen approximately 1 month ago at which time a CT KUB was ordered for further assessment evaluation for increased stone burden noted on recent renal ultrasound as well as bilateral flank pain patient has been experiencing. These results were reviewed with the patient today. Bilateral multiple renal calculi at all levels with the largest calculi seen in the lower left kidney measuring up to 0.8 cm in diameter. No hydronephrosis noted. In discussion with the patient today she continues to report bilateral intermittent flank pain. Discussed further surgical intervention versus surveillance monitoring. She reports to be following up with her fulfillment mail clerk for GI issues she has also been experiencing. Discussed findings on CT with oval shaped low density lesion is seen at the medial border of left hepatic lobe segment IVb. Further evaluation with pre and postcontrast MRI of abdomen is recommended. Sigmoid diverticulosis without inflammatory changes. Patient with a previous longstanding history of nephrolithiasis with surgical interventions for her renal stones with Dr. Lauren. She otherwise denies urinary urgency, urinary frequency, incontinence, nocturia, hematuria, dysuria, foul smelling urine, changes to urinary stream, flank pain, fever, and or chills. Of note, patient has a history of multiple failed OAB medications however has been happy with her current voiding paramters on Gemtesa. Patient otherwise offers no issues or concerns at this time. She otherwise denies any other issues or concerns at this time. [facility] Medical History Diabetes HLD (hyperlipidemia) COPD (chronic obstructive pulmonary disease) IBS (irritable bowel syndrome) Depression Breast cancer Thyroid nodule HTN (hypertension) GERD (gastroesophageal reflux disease) Asthma Bilateral nephrolithiasis Overactive bladder Surgical History Hx of cystoscopy Hx of lithotripsy S/P Botox injection (~2018) Status post left breast reconstruction (~2002) S/P thyroid biopsy (~2005) H/O left mastectomy (~2001) S/P parathyroidectomy (~2006) Social History Household Members: Family Housing: House Alcohol intake: former Patient Tobacco Use Status: Never used Tobacco Review of Systems Const All systems reviewed & are unremarkable except as noted in HPI and below Reports no additional complaints Eyes Reports no additional complaints ENT Reports no additional complaints Card Reports no additional complaints Resp Reports no additional complaints GI Reports no additional complaints Reports as per HPI Musc Reports no additional complaints Skin/Breast Reports system reviewed and no additional complaints, except as documented Neuro Reports no additional complaints Psych Reports no additional complaints Endo Reports no additional complaints Jan/Lymph Reports no additional complaints Aller/Immun Reports no additional complaints Results AMB Urinalysis, Automated UA Leukoctes 500 Soham/uL Last Edit by JESSENIA Win on 03/13/24 15:37 UA Nitrite Negative Last Edit by JESSENIA Win on 03/13/24 15:37 UA Urobilinogen 1 mg/dL Last [facility] 03/13/[facility] 15:37 UA Protein 30 mg/dL Last Edit by Cj Hidalgo [facility] on 03/13/24 15:37 UA pH 6.0 Last Edit by Cj Hidalgo [facility] on 03/13/24 15:37 UA Blood 0 Rogelio/uL Last Edit by Cj Hidalgo [facility] on 03/13/24 15:37 UA Specific Bardolph 1.015 Last Edit by Cj Hidalgo [facility] on 03/13/24 15:37 UA Ketone Positive Last Edit by Cj Hidalgo [facility] on 03/13/24 15:37 UA Bilirubin 0 mg/dL Last Edit by Cj Hidalgo [facility] on 03/13/24 15:37 UA Glucose 0 mg/dL Last Edit by Cj Hidalgo [facility] on 03/13/24 15:37 Results Reviewed Results Reviewed: Laboratory Last Values Urine pH (Auto) 6.0 03/13/24 15:36 Specific Bardolph (Auto) 1.015 03/13/24 15:36 Urine Protein (Auto) 30 mg/dL 03/13/24 15:36 Glucose (UA)(Auto) 0 mg/dL 03/13/24 15:36 Urine Ketones (Auto) Positive 03/13/24 15:36 Urine Blood (Auto) 0 Rogelio/uL 03/13/24 15:36 Urine Nitrite (Auto) Negative 03/13/24 15:36 Urine Bilirubin (Auto) 0 mg/dL 03/13/24 15:36 Urine Urobilinogen (Auto) 1 mg/dL 03/13/24 15:36 Leukocyte Esterase (Auto) 500 Soham/uL 03/13/24 15:36 Date of Service: 08/02/23 EXAMINATION: CT KIDNEY STONE FINDINGS: CT ABDOMEN LUNG BASES: Coronal platelike atelectasis is seen in anterior left lung base, left lingular lobe inferior segment. LIVER: An oval shaped low density lesion is seen at the medial border of left hepatic lobe segment IVb, measuring 2.5 cm in AP diameter, 3.2 cm in width, 3.0 cm in vertical height, mean attenuation of 28 Hounsfield units. GALLBLADDER AND BILIARY TREE: Gallbladder is surgically absent with clips in the gallbladder fossa. Common bile duct is not dilated. SPLEEN: The spleen is normal in size without focal lesion on noncontrast enhanced images. PANCREAS: The pancreas appears unremarkable on noncontrast enhanced images. ADRENAL GLANDS: Adrenal glands are normal in size without focal lesion bilaterally. KIDNEYS: The visualized bilateral kidneys are normal in size with bilateral multiple renal calculi at all levels, with the largest calculi seen in lower left kidney measuring up to 0.8 cm in diameter. There is asymmetric marked thinning of right lateral lower renal cortex. No caliectasis or dilated pelvis is seen. No dilated ureters are found. BOWELS: There is no abnormal dilatation of the large and small bowel loops. RETROPERITONEUM: No abnormally enlarged retroperitoneal lymph nodes, mass or hematoma could be seen. BLOOD VESSELS: Abdominal aorta is normal in size with extensive atherosclerotic calcifications. ABDOMINAL WALL: Small umbilical hernia containing mesenteric fat is seen. PERITONEUM: There is no ascites. There were no abdominal peritoneal inflammatory changes seen. No free peritoneal air was seen. BONES: Advanced L5-S1 degenerative lumbar disc disease is present. No fracture or dislocation. No focal bone lesion diagnostic of metastatic disease could be seen in the lumbar region. CT PELVIS URINARY BLADDER: The visualized urinary bladder is normal, filled with urine. No intraluminal stones are found. No abnormally dilated distal ureters are seen. BOWELS: There is no abnormal dilatation of the large and small bowel loops. Normal appendix is seen projecting posterior and superior to the cecum. Multiple diverticula are seen in the sigmoid colon without inflammatory changes. GENITAL ORGANS: No adnexal mass lesion could be seen. The uterus is atrophic, containing a chunky calcified nodule in posterior left uterine fundus measuring 0.9 cm in diameter. LYMPH NODES: No abnormally enlarged iliac or inguinal lymph nodes are seen. PERITONEUM: No inflammatory changes, ascites or free peritoneal air are found in the pelvis. BONES: No fracture or dislocation. No focal bone lesion diagnostic of metastatic disease could be seen in the pelvis. IMPRESSION: 1. Bilateral multiple renal calculi at all levels, with the largest calculi seen in lower left kidney measuring up to 0.8 cm in diameter. 2. No evidence of hydronephrosis. 3. Asymmetric marked thinning of right lateral lower renal cortex, compatible with previous obstructive uropathy, renal infarction or pyelonephritis. 4. An oval shaped low density lesion is seen at the medial border of left hepatic lobe segment IVb. Further evaluation with pre and postcontrast MRI of abdomen is recommended. 5. Sigmoid diverticulosis without inflammatory changes. 6. Atrophic uterus containing a chunky calcified nodule in posterior left uterine fundus, compatible with calcified fibroid. Assessment & Plan Assessment & Plan (1) Bilateral nephrolithiasis: Code(s): N20.0 - Calculus of kidney Category: Medical (2) Overactive bladder: Code(s): N32.81 - Overactive bladder Category: Medical Plan Ofelia complains that she is getting up more at nighttime and she feels like her urethra is spasming she states she has felt this before when she is passing a kidney stone. She states that the [employer] works during the day and she has less urgency and leakage but the nighttime is very bothersome. Will add VESIcare 5 mg at bedtime and will place on Flomax for a week to facilitate if she is passing a small stone. Orders: Orders AMB Urinalysis Automated 03/13/24 Z13.9 - Encounter for screening, unspecified CT kidney stone 5 Months N20.0 - Calculus of kidney Medications: New solifenacin (Vesicare) 5 mg PO DAILY 30 tabs 1RF Refilled tamsulosin 0.4 mg PO BEDTIME 14 days 14 caps 0RF Patient Instructions: The patient had an opportunity to ask questions regarding treatment plan. The patient expressed understanding and agreement with the above treatment plan. The patient is aware they should contact our office by phone for worsening of their current condition or the appearance of new symptoms. Compliance is encouraged with any medications and followup testing that is ordered. It is a privilege to be allowed the opportunity to participate in the urologic care of your patient. If you have any questions or concerns regarding treatment for the above conditions please do not hesitate to contact me. The office telephone contact is [phone]. This note is constructed in part using voice recognition software. While every effort has been made to ensure accuracy shipping and receiving clerk errors may have been included. Yours sincerely, Primo Luu MD Coding Level of Care Code Est Pt Level 4 (04890) Diagnoses Bilateral nephrolithiasis N20.0 Overactive bladder N32.81
== END 2024-03-13 16:10 | disposition home or self-care (01) ==
LOC: HO.HUSH 15:30
PROVIDERS: PCP Nurse Practitioner Gerontology; Visit Provider Urology
DX: Z13.9 Encounter for screening, unspecified (principal)
CPT/HCPCS: 99214

== ENCOUNTER → 2024-03-13 15:29 | Outpatient (BNVA) | payer MEDICARE, OTHER, SELFPAY | PROVIDERS: PCP Nurse Practitioner Gerontology; Visit Provider Urology | DX: N20.0 Calculus of kidney (principal); N32.81 Overactive bladder | CPT/HCPCS: 81003; 99212 ==

== ENCOUNTER 2024-04-21 13:02 | Outpatient (AMB) | payer MEDICARE, OTHER, SELFPAY ==
[2024-04-21 13:14] VITALS: BP 132/70; PULSE 65; O2SAT 96; BMI 32.2
--- NOTE | 2024-04-21 13:14 | MHC.OFFVIS ---
Vital Signs 04/21/24 13:14 Height 5 ft 1 in Weight 170 lb 10.205 oz BMI 32.2 BP 132/70 Blood Pressure Location Lt brachial Position Sitting Pulse 65 Pulse Source Pulse Oximeter Pulse Oximetry (%) 96 Intake Visit Reasons: Arthritis/CM apt Intake Note: Patient present for arthritis in both her wrists. Allergies latex Allergy (Severe, Verified 04/21/24 13:19) rash and difficulty breathing cefaclor Allergy (Mild, Verified 04/21/24 13:19) Rash ciprofloxacin [From Cipro] Allergy (Mild, Verified 04/21/24 13:19) Rash codeine Allergy (Mild, Verified 04/21/24 13:19) Rash sulfamethoxazole [From Bactrim] Allergy (Mild, Verified 04/21/24 13:19) Rash trimethoprim [From Bactrim] Allergy (Mild, Verified 04/21/24 13:19) Rash Penicillins Allergy (Unknown, Verified 04/21/24 13:19) unknown HPI HPI Arthritis/CM apt: Details: She has tenderness bilateral wrists right worse than left. She is experiencing numbness with pain especially at night. [facility] Medical History Diabetes HLD (hyperlipidemia) COPD (chronic obstructive pulmonary disease) IBS (irritable bowel syndrome) Depression Breast cancer Thyroid nodule HTN (hypertension) GERD (gastroesophageal reflux disease) Asthma Bilateral nephrolithiasis Overactive bladder Surgical History Hx of cystoscopy Hx of lithotripsy S/P Botox injection (~2018) Status post left breast reconstruction (~2002) S/P thyroid biopsy (~2005) H/O left mastectomy (~2001) S/P parathyroidectomy (~2006) Social History Household Members: Family Housing: House Alcohol intake: former Patient Tobacco Use Status: Never used Tobacco Review of Systems Const All systems reviewed & are unremarkable except as noted in HPI and below Physical Exam Vital Signs: Last Vital Signs Pulse 65 04/21/24 13:14 BP 132/70 04/21/24 13:14 Pulse Ox 96 04/21/24 13:14 BMI result Body Mass Index 32.2 Const Other: General: Comfortable Skin: No lesions seen MSK: Tender to palpate bilateral CMCs with squaring present. Heberden's nodes noted. No synovitis. Office Procedures AMB Joint Injection/Aspiration Joint Injection/Aspiration Details: Right CMC joint Prep: site was prepped using sterile technique Injected: 10 mg of, Kenalog, with 0.25 mL of and 1% plain lidocaine Procedure: The patient tolerated the procedure well Coding - Small Joint Procedure code (CPT) selection complete AMB Joint Injection/Aspiration Joint Injection/Aspiration Secondary Site: right carpal tunnel Prep: site was prepped using sterile technique Injected: 20 mg of, Kenalog, with 0.5 mL of and 1% plain lidocaine Procedure: The patient tolerated the procedure well Coding Details: carpal tunnel injection Procedure code (CPT) selection complete ( carpal tunnel injection) Office Meds Synvisc-One 48 mg/6 mL intra-articular syringe Performing Provider: Mark Eduardo MD Performing Location: [facility] [place] [facility] Documented (not given) by: Mark Eduardo MD on 04/21/24 15:21 Reason Not Given: Not Medically Necessary Kenalog 40 mg/mL suspension for injection Performing Provider: Mark Eduardo MD Performing Location: [facility] [place] [facility] Administered by: Mark Eduardo MD on 04/21/24 15:21 Dose Route Admin Location Dispensed Lot Number Expiration Date [facility] Chief Clinical Dietitian 10 mg intra-articular 1 mL AP [id number] [employer] lidocaine (PF) 10 mg/mL (1 %) injection solution Performing Provider: Mark Eduardo MD Performing Location: [facility] [place] [facility] Administered by: Mark Eduardo MD on 04/21/24 15:21 Dose Route Admin Location Dispensed Lot Number Expiration Date [facility] Chief Clinical Dietitian 2.5 mg Infiltration 2 mL [id number] [facility] Kenalog 40 mg/mL suspension for injection Performing Provider: Mark Eduardo MD Performing Location: [facility] [place] [facility] Administered by: Mark Eduardo MD on 04/21/24 15:25 Dose Route Admin Location Dispensed Lot Number Expiration Date [facility] Chief Clinical Dietitian 20 mg Tendon Sheath Inj. 1 mL AP [id number] [employer] lidocaine (PF) 10 mg/mL (1 %) injection solution Performing Provider: Mark Eduardo MD Performing Location: [facility] [place] [facility] Administered by: Mark Eduardo MD on 04/21/24 15:25 Dose Route Admin Location Dispensed Lot Number Expiration Date [facility] Chief Clinical Dietitian 5 mg Infiltration 2 mL [id number] [facility] Assessment & Plan Assessment & Plan (1) Osteoarthritis of CMC joint of thumb: Comment: Right worse than left. Code(s): M18.9 - Osteoarthritis of first carpometacarpal joint, unspecified Category: Medical Plan: Patient received cortisone injection right CMC joint this visit Return to clinic in 3 months or sooner if needed for left CMC joint (2) Carpal tunnel syndrome, right: Comment: Uncontrolled. Code(s): G56.01 - Carpal tunnel syndrome, right upper limb Category: Medical Plan: Patient received cortisone injection to treat right carpal tunnel syndrome Return to clinic in 3 months Orders: Orders AMB Joint Injection/Aspiration Today M18.9 - Osteoarthritis of first carpometacarpal joint, unspecified AMB Joint Injection/Aspiration Today G56.01 - Carpal tunnel syndrome, right upper limb Coding Level of Care Code Est Pt Level 3 (81834) Complex EM visit Add On G2211 Diagnoses Osteoarthritis of CMC joint of thumb M18.9 Carpal tunnel syndrome, right G56.01 CPT Codes Coding - - Small joint: - Small Joint ([id number]) Comment Add CPT code for carpal tunnel syndrome injection to
--- OUTSIDE RECORDS SUMMARY | 2024-04-22 21:19 | XMS_ITS | Continuity of Care Document ---
Author Organization [facility] ter Address [address] [place] [id number]- Care Team Providers Care Tank House Supervisor Name Role Phone Anthony ROY, Jahaira Moore Primary Care Physician Encounter 03/29/24 - 03/30/[address] [address] Attending Physician: Not on Staff, Attending MD Referring Physician: Not on Staff, Referring MD Encounter Type: SMRI Allergies, Adverse Reactions, Alerts Substance Criticality Severity Reaction Reaction Severity Status codeine Active sulfa drugs 1 Active Latex rash Active Cipro Active Ceclor Active Bactrim Active 1Red rash over whole body Immunizations Given and Recorded Vaccine Date Status Refusal Reason influenza virus vaccine, inactivated 03/08/24 Christian rded influenza virus vaccine, inactivated 03/14/23 Christian rded influenza virus vaccine, inactivated 03/12/22 Christian rded influenza virus vaccine, inactivated 03/17/21 Christian rded influenza virus vaccine, inactivated 02/13/18 Christian rded influenza virus vaccine, inactivated 05/17/10 Christian rded SARS-CoV-2(COVID-19)mRNA-LNP vac([id number]) 03/08/24 Recorded SARS-CoV-2(COVID-19)mRNA-LNP vac([id number]) 04/06/23 Recorded RSV vaccine preF3, recombinant 04/06/23 Recorded tetanus/diphtheria/pertussis, acel(Tdap) 1 03/28/23 Given [id number] 12y+ bivalent booster vax 03/12/22 Recorded SARS-CoV-2 mRNA ([id number]) vax 08/22/21 Recorded SARS-CoV-2 (COVID-19) mRNA BNT-162b2 vac 02/21/21 Recorded SARS-CoV-2 (COVID-19) mRNA BNT-162b2 vac 08/18/20 Given SARS-CoV-2 (COVID-19) mRNA BNT-162b2 vac 07/28/20 Given zoster vaccine, inactivated 04/29/20 Recorded Influenza Virus Vaccine (oldterm) 03/11/19 Recorde d pneumococcal 23-valent vaccine 06/18/17 Recorded 1Result Comment: [facility] [id number] Medications ascorbic acid-ferrous fumarate (as elemental iron) 25 mg-65 mg oral tablet, extended release 1 tablet, By Mouth, Daily, 0 Refills, Maintenance, 11/16/20 10:07:00 AM EDT, Partial fill upon patient request if the prescription is for a schedule II opioid drug. Start Date: 11/16/20 Status: Ordered Repeat number: 1 atorvastatin 40 mg oral tablet 1 tablet, By Mouth, Daily, # 90 tablet, 1 Refills, Maintenance, 10/03/23 9:40:00 AM EDT, [facility]/pharmacy #[id number], 155, cm, 10/03/23 9:33:00 EDT, Height Start Date: 10/03/23 Status: Ordered Quantity: 90.0 Unit: tablet Repeat number: 2 atropine-diphenoxylate 0.025 mg-2.5 mg oral tablet TAKE UP TO 8 TABLETS BY MOUTH A DAY Start Date: 12/29/18 Status: Ordered Repeat number: 1 CPAP Machine See Instructions, # 1 each, Maintenance, CPAP 13 cm H20, use Daily when sleeping, 07/01/23 9:43:00 AM EST, Supply Start Date: 07/01/23 Status: Ordered Quantity: 1.0 Unit: each Repeat number: 1 Freestyle Lite Lancets See Instructions, # 100 each, Refills 11, Tot. Refills 11, Maintenance, test sugars 2x a day. E 11.9, 07/07/19 1:10:00 PM EST, Compound, 152.4, cm, 07/07/19 9:28:00 EST, Height Start Date: 07/07/19 Status: Ordered Quantity: 100.0 Unit: each Repeat number: 12 Indication: Type 2 diabetes mellitus without complications Freestyle Lite Monitor See Instructions, # 50 each, Refills 5, Tot. Refills 5, Maintenance, test qd dx E 11.9, 06/11/19 1:47:00 PM EST, Compound, 152.4, cm, 06/10/19 15:35:00 EST, Height Start Date: 06/11/19 Status: Ordered Quantity: 50.0 Unit: each Repeat number: 6 Indication: Type 2 diabetes mellitus without complications FREESTYLE LITE TEST STRIP FREESTYLE LITE TEST STRIP, See Instructions, # 50 Unknown, 5 Refills, USE TO TEST EVERY DAY DX E11.9, 152.4, cm, 03/14/20 15:02:00 EST, Height Start Date: 03/29/20 Status: Ordered Quantity: 50.0 Unit: Unknown Repeat number: 1 Freestyle Lite Test Strips See Instructions, # 100 each, Refills 11, Tot. Refills 11, Maintenance, test sugars 2x a day. E 11.9, 07/07/19 1:11:00 PM EST, Compound, 152.4, cm, 07/07/19 9:28:00 EST, Height Start Date: 07/07/19 Status: Ordered Quantity: 100.0 Unit: each Repeat number: 12 Indication: Type 2 diabetes mellitus without complications gabapentin 300 mg oral capsule 1, capsule, By Mouth, 2 times a day, # 180 capsule, Refills 1, Tot. Refills 1, Maintenance, :40:00 AM EDT, Route to Pharmacy Electronically, [facility]/pharmacy #[id number], 155, cm, 10/03/23 9:33:00 EDT, Height Start Date: 10/03/23 Status: Ordered Quantity: 180.0 Unit: capsule Repeat number: 2 Gemtesa 75 mg oral tablet 1 tablet = 75 mg, By Mouth, Daily, # 30 tablet, 0 Refills, Maintenance, 09/20/22 10:00:00 AM EDT, Tablet, Partial fill upon patient request if the prescription is for a schedule II opioid drug. Start Date: 09/20/22 Status: Ordered Quantity: 30.0 Unit: tablet Repeat number: 1 lisinopril 20 mg oral tablet 1, tablet, By Mouth, Daily in AM, # 90 tablet, Refills 0, Maintenance, 02/07/24 6:01:00 PM EDT, Route to Pharmacy Electronically, [facility] STORE [id number], 155, cm, 10/03/23 9:33:00 EDT, Height Start Date: 02/07/24 Status: Ordered Quantity: 90.0 Unit: tablet Repeat number: 1 MetFORMIN (Eqv-Glucophage XR) 500 mg oral tablet, extended release 1 tablet, By Mouth, 2 times a day, # 180 tablet, 1 Refills, Maintenance, 01/31/24 1:02:00 PM EDT, [facility]/pharmacy #[id number], 155, cm, 10/03/23 9:33:00 EDT, Height Start Date: 01/31/24 Status: Ordered Quantity: 180.0 Unit: tablet Repeat number: 2 NIFEdipine (Eqv-Adalat CC) 30 mg oral tablet, extended release 1 tablet, By Mouth, Daily, # 90 tablet, 1 Refills, Maintenance, 10/03/23 9:39:00 AM EDT, [facility]/pharmacy #[id number], 155, cm, 10/03/23 9:33:00 EDT, Height Start Date: 10/03/23 Status: Ordered Quantity: 90.0 Unit: tablet Repeat number: 2 omeprazole 40 mg oral enteric coated capsule ORAL, CAPSULE, DELAYED RELEASE, 0 Refill(s),, 0 Refills, 08/26/18 9:26:00 AM EDT Start Date: 08/26/18 Status: Ordered Repeat number: 1 Restasis Every 12 hours, 0 Refills, Maintenance, 04/17/21 10:16:00 AM EST, Partial fill upon patient request if the prescription is for a schedule II opioid drug. Start Date: 04/17/21 Status: Ordered Repeat number: 1 Restasis 0.05% ophthalmic emulsion 1 drops, Every 12 hours, 0 Refills, Maintenance, 04/17/21 10:00:00 AM EST, Partial fill upon patientrequest if the prescription is for a schedule II opioid drug. Start Date: 04/17/21 Status: Ordered Repeat number: 1 sertraline 100 mg oral tablet 1 tablet, By Mouth, Daily, # 90 tablet, 1 Refills, Maintenance, 10/03/23 9:41:00 AM EDT, [facility]/pharmacy #[id number], 155, cm, 10/03/23 9:33:00 EDT, Height Start Date: 5/23/24 Status: Ordered Quantity: 90.0 Unit: tablet Repeat number: 2 tamsulosin 0.4 mg oral capsule 0.4 mg, 1, capsule, By Mouth, Daily, # 30 capsule, Refills 0, Maintenance, 07/25/21 3:29:00 PM EDT, Partial fill upon patient request if the prescription is for a schedule II opioid drug. Start Date: 07/25/21 Status: Ordered Quantity: 30.0 Unit: capsule Repeat number: 1 Problem List Condition Confirmation Course Effective Dates Status Health Status Informant Asthma Confirmed Active Bladder muscle dysfunction - overactive Confirmed Active Carpal tunnel syndrome Confirmed Active Dizziness Confirmed Active Dry eyes Confirmed Active Edema of foot Confirmed Active Fatigue Confirmed Active Gastroesophageal reflux disease Confirmed Active Hypercholesterolemia Confirmed Active Hypertensive disorder Confirmed Active Irritable bowel syndrome Confirmed Active Arthralgia Confirmed Active Nephrolithiasis Confirmed Active Treatment-emergent central sleep apnea Confirmed Active Neuropathy of both feet Confirmed Active Obesity Confirmed Active Obstructive sleep apnea syndrome Confirmed Active Osteoarthritis of knee Confirmed Active Persistent insomnia Confirmed Active Poor short-term memory Confirmed Active Recurrent depression Confirmed Active Diabetes mellitus, type II Confirmed Active Urinary incontinence Confirmed Active Vertigo Confirmed Active Social History Social History Type Response Smoking Status Never smoker entered on: 01/15/18 Sex Sex Representation Female (finding) Patient Care team information Care Team Personnel Name: Jahaira Cruz NP Position: [facility] PCO Associate Professional Member Role: PCP Address: [address] [place] [address] [address] Telecom: Care Team Related Persons Name: SOFIYA REY Name: FREEDOM HANCOCK Insurance Providers Guarantor name: ARGELIA CANDDIO Health Plan Information #: 1 Payer: MEDICARE PART B OUTPT Member Number: NA Policy Number: NA Group Number: NA Health Plan Information #: 2 Payer: [facility] Member Number: NA Policy Number: NA Group Number: NA
== END 2024-04-21 13:54 | disposition home or self-care (01) ==
PROVIDERS: PCP Nurse Practitioner Gerontology; Visit Provider Internal Medicine Rheumatology
DX: M18.11 Unilateral primary osteoarthritis of first carpometacarpal joint, right hand (principal); G56.01 Carpal tunnel syndrome, right upper limb
CPT/HCPCS: 20526; 20600; 99213; G2211

== ENCOUNTER → 2024-04-21 13:02 | Outpatient (BNVA) | payer MEDICARE, OTHER, SELFPAY | PROVIDERS: PCP Nurse Practitioner Gerontology; Visit Provider Internal Medicine Rheumatology | DX: M18.9 Osteoarthritis of first carpometacarpal joint, unspecified (principal); G56.01 Carpal tunnel syndrome, right upper limb | CPT/HCPCS: 20526; 20600; 99212; J2003; J3300 ==

== ENCOUNTER 2024-07-14 10:33 | Outpatient (AMB) | payer MEDICARE, OTHER, SELFPAY ==
--- NOTE | 2024-07-14 10:34 | A.OFFVIS_ITS ---
Vital Signs 07/14/24 10:35 Height 5 ft 1 in Weight 177 lb 0.499 oz BMI 33.4 BP 150/80 H Blood Pressure Location Rt brachial Position Sitting Pulse 88 Pulse Source Pulse Oximeter Pulse Oximetry (%) 96 Oxygen Delivery Method Room Air Intake Visit Reasons: Follow Up 3mo Intake Note: Patient present for arthritis.pt states right wrist has been sore for the past week Allergies latex Allergy (Severe, Verified 07/14/24 10:41) rash and difficulty breathing cefaclor Allergy (Mild, Verified 07/14/24 10:41) Rash ciprofloxacin [From Cipro] Allergy (Mild, Verified 07/14/24 10:41) Rash codeine Allergy (Mild, Verified 07/14/24 10:41) Rash sulfamethoxazole [From Bactrim] Allergy (Mild, Verified 07/14/24 10:41) Rash trimethoprim [From Bactrim] Allergy (Mild, Verified 07/14/24 10:41) Rash Penicillins Allergy (Unknown, Verified 07/14/24 10:41) unknown HPI HPI Follow Up 3mo: Details: Last week she had to shovel the [employer] driveway and since then she has been experiencing left wrist pain. Numbness in the fingertips in the left hand have returned in the last week. She denies numbness in her right hand. [facility] Medical History Diabetes HLD (hyperlipidemia) COPD (chronic obstructive pulmonary disease) IBS (irritable bowel syndrome) Depression Breast cancer Thyroid nodule HTN (hypertension) GERD (gastroesophageal reflux disease) Asthma Bilateral nephrolithiasis Overactive bladder Surgical History Hx of cystoscopy Hx of lithotripsy S/P Botox injection (~2018) Status post left breast reconstruction (~2002) S/P thyroid biopsy (~2005) H/O left mastectomy (~2001) S/P parathyroidectomy (~2006) Social History Household Members: Family Housing: House Alcohol intake: former Patient Tobacco Use Status: Never used Tobacco Review of Systems Const All systems reviewed & are unremarkable except as noted in HPI and below Physical Exam Vital Signs: Last Vital Signs Pulse 88 07/14/24 10:35 BP 150/80 H 03/04/25 10:35 Pulse Ox 96 07/14/24 10:35 Oxygen Delivery Method Room Air 07/14/24 10:35 BMI result Body Mass Index 33.4 Const Other: General: Comfortable Skin: No lesions seen MSK: Tender to palpate right CMC with squaring present. Tender to palpate right 1st extensor compartment. Negative Nora test. Heberden's nodes noted. No synovitis. Office Procedures AMB Joint Injection/Aspiration Joint Injection/Aspiration Details: Right CMC Prep: site was prepped using aseptic technique Injected: 10 mg of, Kenalog, with 0.25 mL of and 1% plain lidocaine Procedure: The patient tolerated the procedure well. Postprocedure protocol was discussed with patient. Coding 84568 - Small Joint Procedure code (CPT) selection complete Office Meds lidocaine (PF) 10 mg/mL (1 %) injection solution Performing Provider: Mark Eduardo MD Performing Location: [facility] Administered by: Mark Eduardo MD on 07/14/24 12:23 Dose Route Admin Location Dispensed Lot Number Expiration Date [facility] Hvac [employer] 2.5 mg Infiltration 2 mL [id number] [facility] Kenalog 40 mg/mL suspension for injection Performing Provider: Mark Eduardo MD Performing Location: [facility] Administered by: Mark Eduardo MD on 07/14/24 12:23 Dose Route Admin Location Dispensed Lot Number Expiration Date [facility] H[employer]ne[employer] 10 mg intra-articular 1 mL AP [id number] [employer] Assessment & Plan Assessment & Plan (1) Osteoarthritis of CMC joint of thumb: Comment: Right worse than left. Recurrent. Code(s): M18.9 - Osteoarthritis of first carpometacarpal joint, unspecified Category: Medical Qualifiers: Osteoarthritis type: primary Laterality: bilateral Qualified Code(s): M18.0 - Bilateral primary osteoarthritis of first carpometacarpal joints Plan: Patient received cortisone injection to right CMC Return to clinic in 3 months or sooner if needed (2) De Quervain's tenosynovitis, right: Comment: Suspected. Discussed conservative management Code(s): M65.4 - Radial styloid tenosynovitis [de Quervain] Category: Medical Plan: She will start using thumb spica splint that she has a at home Start icing affected area daily Start using Voltaren gel applied to affected area every 4-6 hours as needed Return to clinic in 3 months or sooner if needed. If symptoms do not improve, she will call office Orders: Orders AMB Joint Injection/Aspiration Today M18.9 - Osteoarthritis of first carpometacarpal joint, unspecified Medications: New lidocaine (PF) 2.5 mg (0.25 mL) Infiltration ONCE 0.25 mL 0RF M18.9 - Osteoarthritis of first carpometacarpal joint, unspecified Kenalog (triamcinolone acetonide) 10 mg (0.25 mL) intra-articular ONCE 0.25 mL 0RF NS M18.9 - Osteoarthritis of first carpometacarpal joint, unspecified Coding Level of Care Code Est Pt Level 4 (55274) Complex EM visit Add On G2211 Diagnoses Primary osteoarthritis of both first carpometacarpal joints M18.0 Osteoarthritis type: primary Laterality: bilateral De Quervain's tenosynovitis, right M65.4 CPT Codes Coding - 58022 - Small joint: 79344 - Small Joint ([id number])
[2024-07-14 10:35] VITALS: BP 150/80; PULSE 88; O2SAT 96; BMI 33.4
--- OUTSIDE RECORDS SUMMARY | 2024-07-14 12:52 | XMS_ITS | Clinical Summary ---
Author Organization [facility] Address [address] [place] [address] Phone Care Team Providers Care Equipment Validation Engineer Name Role Phone Jahaira Cruz NP Primary Care Provider [phone] Allergies Active Allergy Reactions Criticality Noted Date Comments Cefaclor Rash 11/04/2017 Ciprofloxacin 05/19/2018 Codeine 05/19/2018 Latex 05/19/2018 Sulfamethoxazole-Trimethoprim 2018 Sulfate Ion 05/19/2018 Medications atorvastatin (LIPITOR) 40 mg tablet Take 1 tablet (40 mg total) by mouth 1 (one) time each day. Active gabapentin (NEURONTIN) 100 mg capsule Take 1 capsule (100 mg total) by mouth 2 (two) times a day. 3 Active lisinopriL (PRINIVIL,ZESTRI L) 20 mg tablet Take 1 tablet (20 mg total) by mouth 1 (one) time each day. Active metFORMIN (GLUCOPHAGE) 500 mg tablet Take 1 tablet (500 mg total) by mouth 2 (two) times a day with meals. Active omeprazole (PriLOSEC) [address] capsule Take 2 capsules (40 mg total) by mouth. Active oxymetazoline, PF, (Upneeq, PF,) 0.1 % dropperette Administer into affected eye(s). Active tamsulosin (FLOMAX) 0.4 mg 24 hr capsule Take 1 capsule (0.4 mg total) by mouth 1 (one) time each day. 2 Active omeprazole (PriLOSEC) [address] capsuleIndicatio ns:Gastroesophag eal reflux disease without esophagitis TAKE 1 CAPSULE BY MOUTH TWICE A DAY 180 capsule 1 5 Active Gemtesa 75 mg tablet tablet Take 1 tablet (75 mg total) by mouth 1 (one) time each day. Active sertraline (ZOLOFT) 100 mg tablet Take 1 tablet (100 mg total) by mouth 1 (one) time each day. Active NIFEdipine CC (ADALAT CC) 60 mg 24 hr tablet Take 1 tablet (60 mg total) by mouth 1 (one) time each day. 4 Active omeprazole (PriLOSEC) [address] capsuleIndicatio ns:Gastroesophag eal reflux disease without esophagitis,Quan roparesis Take 1 capsule (40 mg total) by mouth 2 (two) times a day. Do not crush or chew. 180 each 3 5 06/10/19 26 Active diphenoxylate-at ropine (LOMOTIL) 2.5-0.025 mg per tabletIndication s:Irritable bowel syndrome with diarrhea Take 2 tablets by mouth 3 (three) times a day. Max Daily Amount: 6 tablets 540 each 3 5 06/10/19 26 Active Active Problems Problem Noted Date Diagnosed Date Gastroesophageal reflux disease without esophagi tis 06/10/2024 Assessment & Plan (06/10/2024 5:02 PM EST): Orders: omeprazole (PriLOSEC) [address] capsule; Take 1 capsule (40 mg total) by mouth 2 (two) times a day. Do not crush or chew. Irritable bowel syndrome with diarrhea 5 Assessment & Plan (06/10/2024 5:02 PM EST): Orders: diphenoxylate-atropine (LOMOTIL) 2.5-0.025 mg per tablet; Take 2 tablets by mouth 3 (three) times a day. Max Daily Amount: 6 tablets Gastroparesis 06/10/2024 Assessment & Plan (06/10/2024 5:02 PM EST): Orders: omeprazole (PriLOSEC) [address] capsule; Take 1 capsule (40 mg total) by mouth 2 (two) times a day. Do not crush or chew. Adenomatous polyp of colon 06/10/2024 Type 2 diabetes mellitus, wi thout long-term current use of insulin 06/10/2024 Malignant neoplasm of left female breast 025 Uncomplicated asthma 06/10/2024 Depression 06/10/2024 Encounters Date Type Department Care Team Description 06/10/2024 2:20 PM EST Office Visit Gastroenterology - [address] [facility] [address] [place] [address] Mary Anne Castillo PA Gastroesophageal reflux disease without esophagitis (Primary Dx); Irritable bowel syndrome with diarrhea; Gastroparesis; Change in consistency of stool from Last 3 Months Immunizations Name Administration Dates Next Due Quintic (ages 12 & older) AURELIO S-CoV-2 COVID-19, mRNA, LNP-S, april-sucrose, preservative free 08/22/2021 Pfizer SARS-CoV-2 COVID-19, mRNA, LNP-S, preservative free 02/21/2021,08/18/2020,07/28/2020 Surgical History Surgery Date Site/Laterality Comments COLONOSCOPY 04/12/2021 - 05/12/2021 4 mm TA, sigmoid tattoo, int rhoids (5yr) ESOPHAGOGASTRODUODENOSCOPY 07/12/2023 - 08/11/2023 reactive gastropathy, nl sm bowl bx LAMINECTOMY Medical History Medical History Date Comments Allergy DX:Allergy Asthma DX:Asthma Breast cancer ([facility]) DX:Breas t cancer ([facility]) Depression DX:Depression Gallstones DX:Gallstones Hypertension DX:Hypertension Osteoporosis DX:Osteoporosis Social History Tobacco Use Types Packs/Day Years Used Date Smoking Tobacco: Never Tobacco Cessation:Counseling Given: Not Answered Alcohol Use Standard Drinks/Week Comments Not Currently 0 (1 standard drink = 0.6 oz pur e alcohol) Comments Unknown Sex and Gender Information Value Date Recorded Sex Assigned at Not on file Legal Sex Female 11:22 PM EST Gender Identity Not on file Sexual Orientation Not on file Obstetrics History Last Filed Vital Signs Vital Sign Reading Time Taken Comments Blood Pressure 123/43 04/02/2024 10:35 AM EST Pulse 80 04/02/2024 10:35 AM EST Temperature 36.1 ??C (96.9 ??F) 04/02/2024 10:[address] Respiratory Rate - - Oxygen Saturation 96% 04/02/2024 10:35 AM EST Inhaled Oxygen Concentration - - Weight 78.5 kg (173 lb) 06/10/2024 2:30 PM EST Height 154.9 cm (5' 1 ) 06/10/2024 2:30 PM EST Body Mass Index 32.69 06/10/2024 2:30 PM EST Plan of Treatment Upcoming Encounters Date Type Department Care Team (Late st Contact Info) Description 09/30/2024 3:00 PM EDT Office Visit [facility] Hematology Oncology [address] [place] [address] Devon Bartlett MD [address] [place] [address] Health Maintenance Due Date Last Done Comments Diabetes: Annual GFR (Glomerular Filtration Rate) 1949 Diabetes: Annual Foot Exam 1959 Diabetes: Annual Retina Eye Exam 1959 Pneumococcal Vaccine: 50+ Years (2 of 2 - PCV) 06/18/2018 06/18/2017 Zoster Vaccines (2 of 2) 06/24/2020 04/29/2020 Cholesterol Screening (Lipid Panel) 04/19/2022 Colorectal Cancer Screening: Colonoscopy 04/19/2022 Depression Screening 04/19/2022 Falls Risk Assessment 04/19/2022 Hepatitis C Screening 04/19/2022 Osteoporosis Screening (Bone Density Screening) 04/19/2022 Social Influencers of Health Screening 04/19/2022 Hypertension/CHF/CAD Annual BMP Blood Test 04/28/2022 Medicare Annual Wellness Visit 03/21/2023 03/21/2022 Diabetes: Annual Urine Albumin-Creatinine Ratio (uACR) 04/02/2024 Diabetes: Blood Sugar Control Test (HGBA1C) 04/02/2024 DTaP,Tdap,and Td Vaccines (2 - Td or Tdap) 03/28/2033 03/28/2023 RSV Immunization Patients 60+ Years Old Completed 04/06/2023 COVID-19 Vaccine Completed 03/08/2024, , 03/12/2022, Additional history exists Influenza Vaccine Completed 03/08/2024, , 03/12/2022, Additional history exists HIB Vaccines Aged Out No longer eligi ble based on patient's age to complete this topic HPV Vaccines Aged Out No longer eligi ble based on patient's age to complete this topic Hepatitis A Vaccines Aged Out No long er eligible based on patient's age to complete this topic Hepatitis B Vaccines Aged Out No long er eligible based on patient's age to complete this topic IPV Vaccines Aged Out No longer eligi ble based on patient's age to complete this topic MMR Vaccines Aged Out No longer eligi ble based on patient's age to complete this topic Meningococcal ACWY Vaccine Aged Out N o longer eligible based on patient's age to complete this topic Meningococcal B Vacine Aged Out No lo nger eligible based on patient's age to complete this topic RSV Immunization Patients Under 20 months Aged Out No longer eligible based on patient's age to complete this topic Varicella Vaccines Aged Out No longer eligible based on patient's age to complete this topic Insurance MEDICARE [facility] Care Teams Equipment Validation Engineer Relationship Specialty Start Date End Date Jahaira Crzu NP [address] [facility] [place] [address] PCP - General Internal Medicine 11/04/17
--- OUTSIDE RECORDS SUMMARY | 2024-07-14 12:52 | XMS_ITS | Clinical Summary ---
Author Organization [facility] Address [address] [place] [address] Care Team Providers Care Merchandise Flow Team Leader Name Role Phone AnthonyJahaira Sharon PRE PRESS OPERATOR Primary Care Provider [phone] Allergies Active Allergy Reactions Criticality Noted Date Comments Sulfamethoxazole-Trimethoprim 2018 Cefaclor 05/19/2018 Ciprofloxacin 05/19/2018 Codeine 05/19/2018 Latex 05/19/2018 Sulfate 05/19/2018 Medications Medication Sig Dispensed Refills Start Date End Date Status albuterol (PROVENTIL) (2.5 MG/3ML) 0.083% nebulizer solution Take 3 mL (2.5 mg total) by nebulization every 6 (six) hours as needed for wheezing. 0 Active fluticasone-salme terol (ADVAIR) 250-50 MCG/DOSE DISKUS 1 inhalation. by Inhaled route every 12 (twelve) hours. 0 Active calcium carbonate (OS-RAMBO) 1250 (500 Ca) MG tablet Take 1 tablet (1,250 mg total) by mouth daily. 0 Active NIFEdipine (PROCARDIA XL) 30 MG 24 hr tablet Take 1 tablet (30 mg total) by mouth daily. 0 Active omeprazole (PriLOSEC) 20 MG capsule Take 2 capsules (40 mg total) by mouth daily. 0 Active atorvastatin (LIPITOR) tablet 40 mg Take 1 tablet (40 mg total) by mouth daily. 0 Active lisinopril (PRINIVIL,ZESTRIL ) tablet 20 mg Take 1 tablet (20 mg total) by mouth daily. 0 Active diphenoxylate-atr opine (LOMOTIL) 2.5-0.025 MG per tablet Take 1 tablet by mouth 4 (four) times a day as needed for diarrhea. 0 Active Mirabegron ER 50 MG TB24 Take by mouth. 0 Active metFORMIN (GLUCOPHAGE) tablet 500 mg Take 1 tablet (500 mg total) by mouth 2 (two) times a day with meals. 0 Active tamsulosin (FLOMAX) 0.4 MG CAPS Take 1 capsule (0.4 mg total) by mouth daily. 0 Active cycloSPORINE (RESTASIS OP) Apply to eye. 0 Active Oxymetazoline HCl (Upneeq) 0.1 % SOLN Apply to eye. 0 Active gabapentin (NEURONTIN) 100 MG capsule TAKE 1 CAPSULE BY MOUTH TWICE A DAY 180 capsule 3 05/08/2023 Active Active Problems No known active problems Resolved Problems Problem Noted Date Diagnosed Date Resolved Date Malignant neoplasm of overla pping sites of left breast in female, estrogen receptor positive 05/20/2018 09/18/2022 Social History Tobacco Use Types Packs/Day Years Used Date Smoking Tobacco: Never Assessed Sex and Gender Information Value Date Recorded Sex Assigned at Not on file Gender Identity Not on file Sexual Orientation Not on file Job Start Date Occupation Industry Not on file Not on file Not on file Last Filed Vital Signs Vital Sign Reading Time Taken Comments Blood Pressure 164/60 10/01/2023 9:55 AM EDT Pulse 72 10/01/2023 9:55 AM EDT Temperature 36.1 ??C (97 ??F) 10/01/2023 9:55 AM EDT Respiratory Rate - - Oxygen Saturation 98% 10/01/2023 9:55 AM EDT Inhaled Oxygen Concentration - - Weight 79.4 kg (175 lb) 10/01/2023 9:55 AM EDT Height 154.9 cm (5' 1 ) 10/01/2023 9:55 AM EDT Body Mass Index 33.07 10/01/2023 9:55 AM EDT Plan of Treatment Health Maintenance Due Date Last Done Comments Hepatitis C Screening 1949 Depression Screening 1961 Preventative Health Evaluation 1967 DTap / Tdap / Td (1 - Tdap) 1968 Colon Cancer Screening (Colonoscopy) 1994 Fall Risk Assessment 2014 Osteoporosis Screening (DEXA Scan) 2014 Pneumococcal Vaccine (2 of 2 - PCV) 06/18/2018 06/18/2017 Shingrix-Zoster Vaccine (2 of 2) 06/24/2020 04/29/2020 COVID-19 Vaccine (5 - 2024-25 season) 2024 08/22/2021, 02/21/2021, 08/18/2020, Additional history exists Influenza Vaccine (#1) 2024 2, 03/17/2021, 02/13/2018, Additional history exists RSV Adult > 60+ Yrs or (1 - 1-dose 75+ series) 2024 Hepatitis B Vaccines Aged Out No long er eligible based on patient's age to complete this topic RSV Ped < 20 months Aged Out No longe r eligible based on patient's age to complete this topic Care Teams Merchandise Flow Team Leader Relationship Specialty Start Date End Date Jahaira Cruz NP [address] [place] [address] [phone] PCP - General Nurse Practitioner 05/20/18
== END 2024-07-14 11:24 | disposition home or self-care (01) ==
PROVIDERS: PCP Nurse Practitioner Gerontology; Visit Provider Internal Medicine Rheumatology
DX: M18.0 Bilateral primary osteoarthritis of first carpometacarpal joints (principal); M65.4 Radial styloid tenosynovitis [de Quervain]; M18.9 Osteoarthritis of first carpometacarpal joint, unspecified
CPT/HCPCS: 20600; 99214

== ENCOUNTER → 2024-07-14 10:33 | Outpatient (BNVA) | payer MEDICARE, OTHER, SELFPAY | PROVIDERS: PCP Nurse Practitioner Gerontology; Visit Provider Internal Medicine Rheumatology | DX: M18.0 Bilateral primary osteoarthritis of first carpometacarpal joints (principal); M65.4 Radial styloid tenosynovitis [de Quervain] | CPT/HCPCS: 20600; 99212; J2003; J3300 ==

== ENCOUNTER 2024-08-14 14:28 | Outpatient (REF) | payer MEDICARE, OTHER, SELFPAY ==
--- NOTE | ~2024-08-14 | CT_ITS ---
CLINICAL HISTORY: N20.0 - Calculus of kidney CT abdomen and pelvis without contrast Comparison: CT/[place]/SR - CT KIDNEY STONE - 08/02/23 14:14 EDT Findings: The lung bases are clear. Similar-appearing ovoid intermediate density lesion again noted within the liver, axial 18. No new lesion. Multiple bilateral renal calculi are present, similar in number and pattern. The largest calculus is within the left kidney measuring up to 6 mm. No current obstructive uropathy. The bladder is decompressed. Moderate fecal retention. No bowel obstruction or free air. The gallbladder is absent. The spleen, adrenal glands and pancreas are stable. Moderate diffuse atherosclerotic disease. Coarse calcification within the uterus. Chronic degenerative changes within the spine. Near-complete disc space loss at L5-S1. Diffuse atherosclerotic disease. Impression: Multiple bilateral renal calculi, nonobstructing and similar in number and pattern. Ovoid intermediate density liver lesion. An MRI of the abdomen has been recommended for further characterization. No significant change from prior. This document has been electronically signed by: Trell Mccain MD on 08/18/2024 06:04:35
--- OUTSIDE RECORDS SUMMARY | 2024-08-14 16:02 | XMS_ITS | Clinical Summary ---
Author Organization [facility] Address [address] [place] [address] Phone Care Team Providers Care Weave Defect Charting Clerk Name Role Phone Jahaira Cruz NP Primary Care Provider [phone] Allergies Active Allergy Reactions Criticality Noted Date [...] Office Visit Gastroenterology - [address] [facility] [address] [place] [address] Mary Anne Castillo PA Gastroesophageal reflux disease without esophagitis (Primary Dx); Irritable bowel syndrome with diarrhea; Gastroparesis; Change in consistency of stool from Last 3 Months Immunizations Name Administration Dates Next Due [place] (ages 12 & older) AURELIO S-CoV-2 COVID-19, mRNA, LNP-S, april-sucrose, preservative free 08/22/2021 Pfizer SARS-CoV-2 COVID-19, mRNA, LNP-S, preservative free 02/21/2021,08/18/2020,07/28/2020 Surgical History Surgery Date Site/Laterality Comments COLONOSCOPY 04/12/2021 - 05/12/2021 4 mm TA, sigmoid tattoo, int rhoids (5yr) ESOPHAGOGASTRODUODENOSCOPY 07/12/2023 - 08/11/2023 reactive gastropathy, nl sm bowl bx LAMINECTOMY Medical History Medical History Date Comments Allergy DX:Allergy Asthma DX:Asthma Breast cancer DX:Breast cancer (HCC) Depression DX:Depression Gallstones DX:Gallstones Hypertension DX:Hypertension Osteoporosis [...] Description 09/30/2024 3:00 PM EDT Office Visit [facility] Hematology Oncology [address] [place] [address] Devon Bartlett MD [address] [place] [address] Health Maintenance Due Date Last [...] Td or Tdap) 03/28/2033 03/28/2023 RSV Immunization Adult Patients Completed 04/06/2023 COVID-19 Vaccine Completed 03/08/2024, , [...] age to complete this topic Insurance [facility] Care Teams Weave Defect Charting Clerk Relationship Specialty Start Date End Date Jahaira Cruz NP [address] [facility] [place] [address] PCP - General Internal Medicine 11/04/17
--- OUTSIDE RECORDS SUMMARY | 2024-08-14 16:02 | XMS_ITS | Clinical Summary ---
Author Organization [facility] Address [address] [place] [address] Care Team Providers Care Creeler Name Role Phone AnthonyJahaira Sharon SALESPERSON TRAILERS [employer] MOTOR HOMES Primary Care Provider [phone] Allergies Active Allergy Reactions Criticality Noted Date [...] age to complete this topic Care Teams Creeler Relationship Specialty Start Date End Date Jahaira Cruz NP [address] [place] [address] [phone] PCP - General Nurse Practitioner 05/20/18
== END 2024-08-14 14:29 | disposition home or self-care (01) ==
LOC: HO.CT 14:28
PROVIDERS: PCP Nurse Practitioner Gerontology; Visit Provider Urology
DX: N20.0 Calculus of kidney (principal)
CPT/HCPCS: 74176

== ENCOUNTER → 2024-08-14 14:30 | Outpatient (BNV) | payer MEDICARE, OTHER, SELFPAY | PROVIDERS: PCP Nurse Practitioner Gerontology; Visit Provider Radiology Vascular & Interventional Radiology | DX: N20.0 Calculus of kidney (principal) | CPT/HCPCS: 74176 ==

== ENCOUNTER 2024-10-09 11:57 | Outpatient (AMB) | payer MEDICARE, OTHER, SELFPAY ==
--- NOTE | 2024-10-09 12:06 | MHC.OFFVIS ---
Intake Visit Reasons: 6m/ CT Intake Note: Patient is present for 6 month follow up/CT Abdomen + Pelvic CT 08/18 Urology Medication: VIBEGRON Antibiotic Allergy:CIPROFLOXACIN,SULFA,PENICILLINS Blood Thinner:NONE PVR:19ml Case Management Specialist Required: No Allergies latex Allergy (Severe, Verified 10/29/24 08:40) rash and difficulty breathing cefaclor Allergy (Mild, Verified 10/29/24 08:40) Rash ciprofloxacin (From Cipro) Allergy (Mild, Verified 10/29/24 08:40) Rash codeine Allergy (Mild, Verified 10/29/24 08:40) Rash sulfamethoxazole (From Bactrim) Allergy (Mild, Verified 10/29/24 08:40) Rash trimethoprim (From Bactrim) Allergy (Mild, Verified 10/29/24 08:40) Rash Penicillins Allergy (Unknown, Verified 10/29/24 08:40) unknown HPI Comments Details: 10/09/2024--Ofelia is a 74-year-old female who is being followed for kidney stones and overactive bladder symptoms she was last seen March 2024 and she is prescribed Gemtesa and VESIcare Ofelia completed a CAT scan stone and results discussed with her today. Cont to monitor. CTAP- 08/15/24--Multiple bilateral renal calculi are present, similar in number and pattern. The largest calculus is within the left kidney measuring up to 6 mm. 03/13/24--Discussed 24 hour urine results: Total volume 1.87 L, Calcium 57 mg; Oxalate 45 mg, Sodium , Citrate 121 mg. Instructed on importance of fluid intake, Low oxalate diet, vitamin B6 100 mg daily Ofelia complains that she is getting up more at nighttime and she feels like her urethra is spasming she states she has felt this before when she is passing a kidney stone. She states that the Gemtesa works during the day and she has less urgency and leakage but the nighttime is very bothersome. Will add VESIcare 5 mg at bedtime and will place on Flomax for a week to facilitate if she is passing a small stone. The patient states that she had a lot of pain after the procedure in October, (ureteroscope and stent removal was done at that time) compared to the prior procedure I explained that sometimes after scoping the ureter there can be edema and ureteral spasming. 11/20/2023--Ofelia is being followed for nephrolithiasis and overactive bladder. She is status post ureteroscopy stent removal on 10/29/2023. He is on gemtesa for overactive bladder. She states she has been well since then. I have discussed further evaluation with 24 hour urine collection. Will continue Gemtesa, discontinue tamsulosin. 10/14/23--KUB Xray - 10/03/23- film reviewed, radiologist mixing picker tender pending. Discussed findings with Ofelia, possible stone fragment along the stent, discussed left ureteroscopy, possible stone manipulation, stent removal versus stent exchange. 10/02/23--Ofelia is being followed for nephrolithiasis and OAB. She is s/p Left ureteroscopy laser lithotripsy and stent insertion on 09/17/23. She states in general she is doing well. She states urine leakage is worse since the stent, denies cloudy urine. Plan KUB prior to stent removal. 08/05/23--Ofelia is a very pleasant 73-year-old female patient of Dr. Cruz. She has a past medical history of asthma, nephrolithiasis, breast cancer, depression, COPD, diabetes, GERD, hyperlipidemia, hypertension, IBS, overactive bladder, and thyroid nodule. She is following up today regarding her nephrolithiasis and urinary urgency and urinary frequency. Of note, patient was seen approximately 1 month ago at which time a CT KUB was ordered for further assessment evaluation for increased stone burden noted on recent renal ultrasound as well as bilateral flank pain patient has been experiencing. These results were reviewed with the patient today. Bilateral multiple renal calculi at all levels with the largest calculi seen in the lower left kidney measuring up to 0.8 cm in diameter. No hydronephrosis noted. In discussion with the patient today she continues to report bilateral intermittent flank pain. Discussed further surgical intervention versus surveillance monitoring. She reports to be following up with her carpentry professional for GI issues she has also been experiencing. Discussed findings on CT with oval shaped low density lesion is seen at the medial border of left hepatic lobe segment IVb. Further evaluation with pre and postcontrast MRI of abdomen is recommended. Sigmoid diverticulosis without inflammatory changes. Patient with a previous longstanding history of nephrolithiasis with surgical interventions for her renal stones with Dr. Lauren. She otherwise denies urinary urgency, urinary frequency, incontinence, nocturia, hematuria, dysuria, foul smelling urine, changes to urinary stream, flank pain, fever, and or chills. Of note, patient has a history of multiple failed OAB medications however has been happy with her current voiding paramters on Gemtesa. Patient otherwise offers no issues or concerns at this time. She otherwise denies any other issues or concerns at this time. ON LICENSE OF [facility] Medical History Diabetes HLD (hyperlipidemia) COPD (chronic obstructive pulmonary disease) IBS (irritable bowel syndrome) Depression Breast cancer Thyroid nodule HTN (hypertension) GERD (gastroesophageal reflux disease) Asthma Bilateral nephrolithiasis Overactive bladder Surgical History Hx of cystoscopy Hx of lithotripsy S/P Botox injection (~2018) Status post left breast reconstruction (~2002) S/P thyroid biopsy (~2005) H/O left mastectomy (~2001) S/P parathyroidectomy (~2006) Social History Household Members: Family Housing: House Alcohol intake: former Patient Tobacco Use Status: Never used Tobacco Review of Systems Const All systems reviewed & are unremarkable except as noted in HPI and below Reports no additional complaints Eyes Reports no additional complaints ENT Reports no additional complaints Card Reports no additional complaints Resp Reports no additional complaints GI Reports no additional complaints Reports as per HPI Musc Reports no additional complaints Skin/Breast Reports system reviewed and no additional complaints, except as documented Neuro Reports no additional complaints Psych Reports no additional complaints Endo Reports no additional complaints Jan/Lymph Reports no additional complaints Aller/Immun Reports no additional complaints Results Reviewed Results Reviewed: Date of Service: 08/14/24 CLINICAL HISTORY: N20.0 - Calculus of kidney CT abdomen and pelvis without contrast Comparison: CT/[place]/SR - CT KIDNEY STONE - 08/02/23 14:14 EDT Findings: The lung bases are clear. Similar-appearing ovoid intermediate density lesion again noted within the liver, axial 18. No new lesion. Multiple bilateral renal calculi are present, similar in number and pattern. The largest calculus is within the left kidney measuring up to 6 mm. No current obstructive uropathy. The bladder is decompressed. Moderate fecal retention. No bowel obstruction or free air. The gallbladder is absent. The spleen, adrenal glands and pancreas are stable. Moderate diffuse atherosclerotic disease. Coarse calcification within the uterus. Chronic degenerative changes within the spine. Near-complete disc space loss at L5-S1. Diffuse atherosclerotic disease. Impression: Multiple bilateral renal calculi, nonobstructing and similar in number and pattern. Other findings as above Date of Service: 08/02/23 EXAMINATION: CT KIDNEY STONE FINDINGS: CT ABDOMEN LUNG BASES: Coronal platelike atelectasis is seen in anterior left lung base, left lingular lobe inferior segment. LIVER: An oval shaped low density lesion is seen at the medial border of left hepatic lobe segment IVb, measuring 2.5 cm in AP diameter, 3.2 cm in width, 3.0 cm in vertical height, mean attenuation of 28 Hounsfield units. GALLBLADDER AND BILIARY TREE: Gallbladder is surgically absent with clips in the gallbladder fossa. Common bile duct is not dilated. SPLEEN: The spleen is normal in size without focal lesion on noncontrast enhanced images. PANCREAS: The pancreas appears unremarkable on noncontrast enhanced images. ADRENAL GLANDS: Adrenal glands are normal in size without focal lesion bilaterally. KIDNEYS: The visualized bilateral kidneys are normal in size with bilateral multiple renal calculi at all levels, with the largest calculi seen in lower left kidney measuring up to 0.8 cm in diameter. There is asymmetric marked thinning of right lateral lower renal cortex. No caliectasis or dilated pelvis is seen. No dilated ureters are found. BOWELS: There is no abnormal dilatation of the large and small bowel loops. RETROPERITONEUM: No abnormally enlarged retroperitoneal lymph nodes, mass or hematoma could be seen. BLOOD VESSELS: Abdominal aorta is normal in size with extensive atherosclerotic calcifications. ABDOMINAL WALL: Small umbilical hernia containing mesenteric fat is seen. PERITONEUM: There is no ascites. There were no abdominal peritoneal inflammatory changes seen. No free peritoneal air was seen. BONES: Advanced L5-S1 degenerative lumbar disc disease is present. No fracture or dislocation. No focal bone lesion diagnostic of metastatic disease could be seen in the lumbar region. CT PELVIS URINARY BLADDER: The visualized urinary bladder is normal, filled with urine. No intraluminal stones are found. No abnormally dilated distal ureters are seen. BOWELS: There is no abnormal dilatation of the large and small bowel loops. Normal appendix is seen projecting posterior and superior to the cecum. Multiple diverticula are seen in the sigmoid colon without inflammatory changes. GENITAL ORGANS: No adnexal mass lesion could be seen. The uterus is atrophic, containing a chunky calcified nodule in posterior left uterine fundus measuring 0.9 cm in diameter. LYMPH NODES: No abnormally enlarged iliac or inguinal lymph nodes are seen. PERITONEUM: No inflammatory changes, ascites or free peritoneal air are found in the pelvis. BONES: No fracture or dislocation. No focal bone lesion diagnostic of metastatic disease could be seen in the pelvis. IMPRESSION: 1. Bilateral multiple renal calculi at all levels, with the largest calculi seen in lower left kidney measuring up to 0.8 cm in diameter. 2. No evidence of hydronephrosis. 3. Asymmetric marked thinning of right lateral lower renal cortex, compatible with previous obstructive uropathy, renal infarction or pyelonephritis. 4. An oval shaped low density lesion is seen at the medial border of left hepatic lobe segment IVb. Further evaluation with pre and postcontrast MRI of abdomen is recommended. 5. Sigmoid diverticulosis without inflammatory changes. 6. Atrophic uterus containing a chunky calcified nodule in posterior left uterine fundus, compatible with calcified fibroid. Assessment & Plan Assessment & Plan (1) Bilateral nephrolithiasis: Code(s): N20.0 - Calculus of kidney Category: Medical (2) Overactive bladder: Code(s): N32.81 - Overactive bladder Category: Medical Plan Cont Gemtesa 75 mg daily Medications: Refilled vibegron (Gemtesa) 75 mg PO DAILY 90 tabs 3RF 90 days N32.81 - Overactive bladder Coding Level of Care Code Est Pt Level 3 (10125) Diagnoses Bilateral nephrolithiasis N20.0 Overactive bladder N32.81
--- OUTSIDE RECORDS SUMMARY | 2024-10-09 12:42 | XMS_ITS | Clinical Summary ---
Author Organization [facility] Address [address] [place] [address] Care Team Providers Care Test Specialist Name Role Phone AnthonyJahaira Sharon GRANITE POLISHER Primary Care Provider [phone] Allergies Active Allergy Reactions Criticality Noted Date [...] age to complete this topic Care Teams Test Specialist Relationship Specialty Start Date End Date Jahaira Cruz NP [address] [place] [address] [phone] PCP - General Nurse Practitioner 05/20/18
== END 2024-10-09 12:25 | disposition home or self-care (01) ==
LOC: HO.HUSH 11:58
PROVIDERS: PCP Nurse Practitioner Gerontology; Visit Provider Urology
DX: N20.0 Calculus of kidney (principal); N32.81 Overactive bladder
CPT/HCPCS: 99213

== ENCOUNTER → 2024-10-09 11:57 | Outpatient (BNVA) | payer MEDICARE, OTHER, SELFPAY | PROVIDERS: PCP Nurse Practitioner Gerontology; Visit Provider Urology | DX: N20.0 Calculus of kidney (principal); N32.81 Overactive bladder | CPT/HCPCS: 99212 ==

== ENCOUNTER 2024-10-29 08:29 | Outpatient (AMB) | payer MEDICARE, OTHER, SELFPAY ==
--- NOTE | 2024-10-29 08:36 | MHC.OFFVIS ---
Vital Signs 10/29/24 08:41 Height 5 ft 1 in Weight 155 lb 6 oz BMI 29.4 BP 130/62 Blood Pressure Location Lt brachial Position Sitting Pulse 82 Pulse Source Pulse Oximeter Pulse Oximetry (%) 98 Oxygen Delivery Method Room Air Intake Visit Reasons: 3 Months Intake Note: Patient presents for Arthritis follow up. Allergies latex Allergy (Severe, Verified 10/29/24 08:40) rash and difficulty breathing cefaclor Allergy (Mild, Verified 10/29/24 08:40) Rash ciprofloxacin (From Cipro) Allergy (Mild, Verified 10/29/24 08:40) Rash codeine Allergy (Mild, Verified 10/29/24 08:40) Rash sulfamethoxazole (From Bactrim) Allergy (Mild, Verified 10/29/24 08:40) Rash trimethoprim (From Bactrim) Allergy (Mild, Verified 10/29/24 08:40) Rash Penicillins Allergy (Unknown, Verified 10/29/24 08:40) unknown HPI HPI 3 Months: Details: She feels well. She has right intermittent wrist pain. Tolerable pain. She uses a wrist brace at night. [facility] Medical History Diabetes HLD (hyperlipidemia) COPD (chronic obstructive pulmonary disease) IBS (irritable bowel syndrome) Depression Breast cancer Thyroid nodule HTN (hypertension) GERD (gastroesophageal reflux disease) Asthma Bilateral nephrolithiasis Overactive bladder Surgical History Hx of cystoscopy Hx of lithotripsy S/P Botox injection (~2018) Status post left breast reconstruction (~2002) S/P thyroid biopsy (~2005) H/O left mastectomy (~2001) S/P parathyroidectomy (~2006) Social History Household Members: Family Housing: House Alcohol intake: former Patient Tobacco Use Status: Never used Tobacco Physical Exam Vital Signs: Last Vital Signs Pulse 82 10/29/24 08:41 BP 130/62 10/29/24 08:41 Pulse Ox 98 10/29/24 08:41 Oxygen Delivery Method Room Air 10/29/24 08:41 BMI result Body Mass Index 29.4 Const Other: General: Comfortable Skin: Bruising present on right dorsal hand and wrist MSK: No tenderness on palpation of right CMC with squaring present. Tender to palpate right 1st extensor compartment. Negative Nora test. Heberden's nodes noted. No synovitis. Weak hand gold assayer Assessment & Plan Assessment & Plan (1) Osteoarthritis of CMC joint of thumb: Comment: Bilateral right worse than left. Pain of right CMC has resolved with cortisone injection from last visit Code(s): M18.9 - Osteoarthritis of first carpometacarpal joint, unspecified Category: Medical Qualifiers: Osteoarthritis type: primary Laterality: bilateral Qualified Code(s): M18.0 - Bilateral primary osteoarthritis of first carpometacarpal joints Plan: Return to clinic in 3 months or sooner if needed (2) De Quervain's tenosynovitis, right: Comment: Suspected. Pain is intermittent and tolerable. Discussed conservative management Code(s): M65.4 - Radial styloid tenosynovitis [de Quervain] Category: Medical Plan: Short thumb spica splint prescribed for patient If pain progresses, I will add occupational therapy Return to clinic in 3 months or sooner if needed Medications: New arm brace (Wrist Brace) As directed Right thumb spica splint short Dx: De quervain's tenosynovitis 1 ea 0RF Coding Level of Care Code Est Pt Level 3 (74065) Complex EM visit Add On G2211 Diagnoses Primary osteoarthritis of both first carpometacarpal joints M18.0 Osteoarthritis type: primary Laterality: bilateral De Quervain's tenosynovitis, right M65.4
[2024-10-29 08:41] VITALS: BP 130/62; PULSE 82; O2SAT 98; BMI 29.4
--- OUTSIDE RECORDS SUMMARY | 2024-10-29 08:50 | XMS_ITS | Encounter Summary ---
Author Organization [facility] Address [address] [place] [address] Care Team Providers Care Nursery Helper Name Role Phone Jahaira Cruz NP Primary Care Provider [phone] Reason for Visit * Reason Onset Date Comments mammogram appt 10/26/2024 Encounter Details Date Type Department Care Team (Late Contact Info) Description 10/26/2024 Telephone [facility] Hematology Oncology [address] [place] [phone] Katja Tello MA mammogram appt Social History Tobacco Use Types Packs/Day Years Used Date Smoking Tobacco: Never Alcohol Use Standard Drinks/Week Comments Not Currently 0 (1 standard drink = 0.6 oz pur e alcohol) Comments Unknown Sex and Gender Information Value Date Recorded Sex Assigned at Not on file Legal Sex Female 11:22 PM EST Gender Identity Not on file Sexual Orientation Not on file documented as of this encounter Progress Notes * Katja Tello MA - 10/26/2024 10:02 AM EDT Pt has been scheduled for Mammogram at [facility] on 11/09 at 3:30 pm. Pt aware and letter mailed as well documented in this encounter Plan of Treatment Upcoming Encounters Date Type Department Care Team (Late Contact Info) Description 11/09/2024 3:30 PM EDT [facility]ointment [facility] [address] [phone] 12/23/2024 2:10 PM EDT Office Visit Gastroenterology - [address] [phone] Mary Anne Castillo PA [address] [address] 10/14/2025 10:00 AM EDT Office Visit [facility] Hematology Oncology [address] [place] [phone] Devon Bartlett MD [address] [place] [phone] documented as of this encounter Visit Diagnoses Not on filedocumented in this encounter Care Teams Nursery Helper Relationship Specialty Start Date End Date Jahaira Cruz NP [address] [facility] [place] [address] PCP - General Internal Medicine 11/04/17 documented as of this encounter
== END 2024-10-29 09:04 | disposition home or self-care (01) ==
LOC: HO.RHES 08:33
PROVIDERS: PCP Nurse Practitioner Gerontology; Visit Provider Internal Medicine Rheumatology
DX: M18.0 Bilateral primary osteoarthritis of first carpometacarpal joints (principal); M65.4 Radial styloid tenosynovitis [de Quervain]
CPT/HCPCS: 99213; G2211

== ENCOUNTER → 2024-10-29 08:29 | Outpatient (BNVA) | payer MEDICARE, OTHER, SELFPAY | PROVIDERS: PCP Nurse Practitioner Gerontology; Visit Provider Internal Medicine Rheumatology | DX: M18.0 Bilateral primary osteoarthritis of first carpometacarpal joints (principal); M65.4 Radial styloid tenosynovitis [de Quervain] | CPT/HCPCS: 99212 ==

== ENCOUNTER 2025-01-06 13:38 | Outpatient (REF) | payer MEDICARE, OTHER, SELFPAY ==
--- OUTSIDE RECORDS SUMMARY | 2025-01-06 14:25 | XMS_ITS | Clinical Summary ---
Author Organization [facility] Address [address] [place] [address] Care Team Providers Care Respite Worker Name Role Phone AnthonyJahaira Sharon ROAD BUILDER Primary Care Provider Allergies Active Allergy Reactions Criticality Noted Date [...] 72 10/01/2023 9:55 AM EDT Temperature 36.1 C (97 F) 10/01/2023 9:55 AM EDT Respiratory Rate - [...] 2024 08/22/2021, 02/21/2021, 08/18/2020, Additional history exists RSV Adult > 60+ Yrs or (1 - 1-dose 75+ series) 2024 Influenza Vaccine (#1) 2025 2, 03/17/2021, 02/13/2018, Additional history exists Hepatitis B Vaccines Aged Out No long er eligible based on patient's age to complete this topic RSV Ped < 20 months Aged Out No longe r eligible based on patient's age to complete this topic Care Teams Respite Worker Relationship Specialty Start Date End Date Jahaira Cruz NP [address] [place] [phone] PCP - General Nurse Practitioner 05/20/18
--- OUTSIDE RECORDS SUMMARY | 2025-01-06 14:26 | XMS_ITS | Clinical Summary ---
Author Organization [facility] Address [address] [place] [address] Phone Care Team Providers Care Exercise Teacher Name Role Phone Jahaira Cruz NP Primary Care Provider Allergies Active Allergy Reactions Criticality Noted Date Comments Cefaclor Rash 11/04/2017 Ciprofloxacin 05/19/2018 Ciprofloxacin-Hydrocortisone Rash 018 Codeine 05/19/2018 Latex 05/19/2018 Sulfamethoxazole-Trimethoprim 2018 Sulfate Ion 05/19/2018 Sulfites Rash 03/21/2018 Medications atorvastatin (LIPITOR) 40 mg tablet Take 1 tablet (40 mg total) by mouth 1 (one) time each day. Active gabapentin (NEURONTIN) 100 mg capsule Take 1 capsule (100 mg total) by mouth 2 (two) times a day. 05/08/20 23 Active lisinopriL (PRINIVIL,ZESTR IL) 20 mg tablet Take 1 tablet (20 [...] by mouth 1 (one) time each day. 05/17/19 22 Active omeprazole (PriLOSEC) [address] capsuleIndicati ons:Gastroesoph ageal reflux disease without esophagitis TAKE 1 CAPSULE BY MOUTH TWICE A DAY 180 capsule 1 05/18/19 25 Active Gemtesa 75 mg tablet tablet Take 1 tablet (75 mg total) by mouth 1 (one) time each day. Active sertraline (ZOLOFT) 100 mg tablet Take 1 tablet (100 mg total) by mouth 1 (one) time each day. Active NIFEdipine CC (ADALAT CC) 60 mg 24 hr tablet Take 1 tablet (60 mg total) by mouth 1 (one) time each day. 04/30/20 24 Active omeprazole (PriLOSEC) [address] capsuleIndicati ons:Gastroesoph ageal reflux disease without esophagitis,Gas troparesis Take 1 capsule (40 mg total) by mouth 2 (two) times a day. Do not crush or chew. 180 each 3 06/10/19 25 026 Active diphenoxylate-a tropine (LOMOTIL) 2.5-0.025 mg per tabletIndicatio ns:Irritable bowel syndrome with diarrhea TAKE 2 TABLETS BY MOUTH 3 TIMES A DAY 540 tablet 2 12/15/19 25 Active Restasis 0.05 % ophthalmic emulsion Administer 1 drop into both eyes 2 (two) times a day. Active colestipoL (Colestid) 1 gram tabletIndicatio ns:Irritable bowel syndrome with diarrhea Take 2 tablets (2 g total) by mouth 2 (two) times a day. 360 each 1 12/24/19 25 026 Active diphenoxylate-a tropine (LOMOTIL) 2.5-0.025 mg per tabletIndicatio ns:Irritable bowel syndrome with diarrhea Take 2 tablets by mouth 3 (three) times a day. Max Daily Amount: 6 tablets 540 each 3 06/10/19 25 025 Discontinued Active Problems Problem Noted Date Diagnosed Date Arthralgia 12/23/2024 Dry eyes 12/23/2024 Edema of foot 12/23/2024 Fatigue 12/23/2024 Hypercholesterolemia 12/23/2024 Nephrolithiasis 12/23/2024 Neuropathy of lower extremity 12/23/2024 Obesity 12/23/2024 Mixed sleep apnea 12/23/2024 Poor short-term memory 12/23/2024 Dizziness 12/23/2024 Vertigo 12/23/2024 Gastroesophageal reflux disease without esophagi tis 06/10/2024 Assessment & Plan (12/23/2024 5:10 PM EDT): Controlled. Continue omeprazole 40 mg twice a day Assessment & Plan (06/10/2024 5:02 PM EST): Orders: omeprazole (PriLOSEC) [address] capsule; Take 1 capsule (40 mg total) by mouth 2 (two) times a day. Do not crush or chew. Irritable bowel syndrome with diarrhea Assessment & Plan (12/23/2024 5:10 PM EDT): No better with Benefiber Symptomatic despite Lomotil 6 daily Patient will add in colestipol 1 tablet daily to start. We discussed increasing it to twice daily and potentially lowering the amount of Lomotil she takes. The goal is for her to titrate the 2 for better bowel control. The timing of colestipol with her other medications was reviewed Orders: colestipoL (Colestid) 1 gram tablet; Take 2 tablets (2 g total) by mouth 2 (two) times a day. Assessment & Plan (06/10/2024 5:02 PM EST): Orders: diphenoxylate-atropine (LOMOTIL) 2.5-0.025 mg per tablet; Take 2 tablets by mouth 3 (three) times a day. Max Daily Amount: 6 tablets Gastroparesis 06/10/2024 Assessment & Plan (12/23/2024 5:10 PM EDT): Controlled with diet Assessment & Plan (06/10/2024 5:02 PM EST): Orders: omeprazole (PriLOSEC) [address] capsule; Take 1 capsule (40 mg total) by mouth 2 (two) times a day. Do not crush or chew. Adenomatous polyp of colon 06/10/2024 Type 2 diabetes mellitus, [facility] long-term current use of insulin ([facility] V24, [facility] V28) 06/10/2024 Malignant neoplasm of left f emale breast ([facility] V24, [facility] V28) 06/10/2024 Uncomplicated asthma 06/10/2024 Depression 06/10/2024 Carpal tunnel syndrome of right wrist 03/21/2018 Chronic obstructive pulmonar y disease (COPD) ([facility] V24, [facility] V28) 03/21/2018 Hyperlipidemia 03/21/2018 Insomnia 03/21/2018 Osteoarthritis 03/21/2018 Seasonal allergies 03/21/2018 Hypertension 11/14/2017 Kidney stone 11/14/2017 Urinary incontinence 11/14/2017 RHETT (obstructive sleep apnea) 11/04/2017 Encounters Date Type Department Care Team Description 12/23/2024 2:10 PM EDT Office Visit Gastroenterology - [address] [phone] Mary Anne Castillo PA Irritable bowel syndrome with diarrhea (Primary Dx); Gastroesophageal reflux disease without esophagitis; Gastroparesis 11/09/2024 3:24 PM EDT - 11/09/2024 11:59 PM EDT Hospital [facility] [address] [phone] Malignant neoplasm of overlapping sites of left breast in female, estrogen receptor positive ([facility] V24, [facility] V28); Encounter for screening mammogram for malignant neoplasm of breast Discharge Disposition: Home or Self Care 10/26/2024 Telephone [facility] Hematology Oncology [address] [place] [phone] Katja Tello MA 10/16/2024 3:30 PM EDT Office Visit [facility] Hematology Oncology [address] [place] [phone] Devon Bartlett MD Malignant neoplasm of overlapping sites of left breast in female, estrogen receptor positive ([facility] V24, [facility] V28) (Primary Dx); Encounter for screening mammogram for malignant neoplasm of breast from Last 3 Months Immunizations Name Administration Dates Next Due Influenza Quadravalent, 0.5m l (Fluad) 65yo and older 03/14/2023,03/12/2022,03/17/2021,02/21 Influenza Whole 03/11/2019 Influenza trivalent, 0.5mL ( Fluad) 65yo and older 03/08/2024 Influenza trivalent, 0.5mL ( Fluzone High-dose) 65yo and older 03/11/2019,02/13/2018 Influenza trivalent, with pr eservative (Fluzone; Afluria) 6mo and older 05/17/2010 Influenza, live, intranasal, quadrivalent (FluMist) 2yo to less than 50yo 02/22/2017 Cater to u (ages 12 & older) AURELIO S-CoV-2 COVID-19, mRNA, LNP-S, april-sucrose, preservative free 08/22/2021 Pfizer SARS-CoV-2 COVID-19, mRNA, LNP-S, preservative free 02/21/2021,08/18/2020,07/28/2020 Pneumococcal polysaccharide 23 valent (Pneumovax 23) 2yo and older 06/18/2017 RSV, bivalent, protein subun it RSVpreF, 0.5mL, Preservative Free (Arexvy) 60yo and older 04/06/2023 Tdap Tetanus diptheria acell ular pertussis (Boostrix; Adacel) 7yo and older 03/28/2023 Zoster recombinant (Shingrix ) 19yo and older 04/29/2020 Surgical History Surgery Date Site/Laterality Comments COLONOSCOPY 04/12/2021 - 05/12/2021 4 mm TA, sigmoid tattoo, int rhoids (5yr) ESOPHAGOGASTRODUODENOSCOPY 07/12/2023 - 08/11/2023 reactive gastropathy, nl sm bowl bx LAMINECTOMY Medical History Medical History Date Comments Allergy DX:Allergy Asthma DX:Asthma Breast cancer ([facility] V24, [facility] V28) DX:Breast cancer ([facility]) left Depression DX:Depression Gallstones DX:Gallstones Hypertension DX:Hypertension Osteoporosis DX:Osteoporosis Family History Medical History Relation Name Comments Breast cancer Father's Sister Breast cancer Mother Breast cancer Paternal Grandmother Relation Name Status Comments Father's Sister Alive Mother Paternal Grandmother Social History Tobacco Use Types Packs/Day Years Used Date Smoking Tobacco: Never Tobacco Cessation:Counseling Given: Not Answered Alcohol Use Standard Drinks/Week Comments Not Currently 0 (1 standard drink = 0.6 oz pur e alcohol) Comments No Sex and Gender Information Value Date Recorded Sex Assigned at Not on file Legal Sex Female 11:22 PM EST Gender Identity Not on file Sexual Orientation Not on file Obstetrics History Para Term AB IAB SAB Ectopic Multiple Livin g Live Births 1 Last Filed Vital Signs Vital Sign Reading Time Taken Comments Blood Pressure 189/67 10/16/2024 3:34 PM EDT Pulse 68 12/23/2024 2:10 PM EDT Temperature 36.6 C (97.9 F) 10/16/2024 3:34 PM EDT Respiratory Rate - - Oxygen Saturation 97% 12/23/2024 2:10 PM EDT Inhaled Oxygen Concentration - - Weight 74.1 kg (163 lb 6.4 oz) 12/23/2024 2:10 P M EDT Height 154.9 cm (5' 1 ) 12/23/2024 2:10 PM EDT Body Mass Index 30.87 12/23/2024 2:10 PM EDT Plan of Treatment Upcoming Encounters Date Type Department Care Team (Late st Contact Info) Description 10/14/2025 10:00 AM EDT Office Visit [facility] Hematology Oncology [address] [place] [phone] Devon Bartlett MD [address] [place] [phone] Health Maintenance Due Date Last Done Comments Diabetes: Annual GFR (Glomerular Filtration Rate) 1949 Diabetes: Annual Foot Exam 1959 Diabetes: Annual Retina Eye Exam 1959 Pneumococcal Vaccine: 50+ Years (2 of 2 - PCV) 06/18/2018 06/18/2017 Zoster Vaccines (2 of 2) 06/24/2020 04/29/2020 Cholesterol Screening (Lipid Panel) 04/19/2022 Colorectal Cancer Screening: Colonoscopy 04/19/2022 Falls Risk Assessment 04/19/2022 Hepatitis C Screening 04/19/2022 Osteoporosis Screening (Bone Density Screening) 04/19/2022 Social Influencers of Health Screening 04/19/2022 Hypertension/CHF/CAD Annual BMP Blood Test 04/28/2022 Medicare Annual Wellness Visit 03/21/2023 03/21/2022 Diabetes: Annual Urine Albumin-Creatinine Ratio (uACR) 04/02/2024 Diabetes: Blood Sugar Control Test (HGBA1C) 04/02/2024 Depression Screening 05/13/2024 Influenza Vaccine (#1) 2025 , 03/14/2023, 03/12/2022, Additional history exists DTaP,Tdap,and Td Vaccines (2 - Td or Tdap) 03/28/2033 03/28/2023 RSV Immunization Adult Patients Completed 04/06/2023 COVID-19 Vaccine Completed 10/04/2024, , 04/06/2023, Additional history exists Breast Cancer Screening Discontinued 11/09/2024 HIB Vaccines Aged Out No longer eligi [...] age to complete this topic Meningococcal B Vaccine Aged Out No l onger eligible based on patient's age to complete this topic RSV Immunization Patients Under 20 months Aged Out No longer eligible based on patient's age to complete this topic Varicella Vaccines Aged Out No longer eligible based on patient's age to complete this topic Procedures Procedure Name Priority Date/Time Associated Diagnosis Comments MG MAMMO DIGITAL SCREENING W LUDWIG RIGHT Routine 11/09/2024 3:42 PM EDT Malignant neoplasm of overlapping sites of left breast in female, estrogen receptor positive (CMS/HCC V24, CMS/HCC V28) Encounter for screening mammogram for malignant neoplasm of breast from Last 3 Months Results * MG Mammo Digital Screening w Ludwig Right (11/09/2024 3:42 PM EDT) Anatomical Region Laterality Modality Breast Right Mammography 11/10/2024 7:42 AM EDT Impressions 11/10/2024 7:45 AM EDT No mammographic evidence of malignancy. A negative mammogram in the presence of a clinically suspicious palpable abnormality does not preclude the possibility of malignancy or alter the indications for biopsy. PQRI CPT II 3342F Code 06077, 81854 PQRI 225 CPT II 7025F TISSUE DENSITY: The breasts are almost entirely fatty. (BI-RADS Category A) IMPRESSION: Benign. BI-RADS CATEGORY: 2 - BENIGN RECOMMENDATION: Screening bilateral mammogram is recommended in 1 year. Mammo Location: [facility], [address] [place] [address] -------- FINAL REPORT -------- Dictated By: Semaj Mcdermott Dictated Date: 11/10/2024 07:42 ET Assigned Physician: Semaj Mcdermott Reviewed and Electronically Signed By: Semaj Mcdermott Signed Date: 11/10/2024 07:45 ET Workstation ID: [id number] Transcribed By: Self Edit Transcribed Date: 11/10/2024 07:42 ET Narrative 11/10/2024 7:45 AM EDT CLINICAL: The patient is a 74 years Female with personal history of left breast cancer which was treated with mastectomy at age 51. The patient also has a family history of breast cancer involving her mother. The patient now presents for annual mammography of the right breast. COMPARISON: Most recently 11/04/2023 and most remotely 05/29/2018. TECHNIQUE: Full-field digital mammography of the right breast consisting of tomosynthesis in MLO and CC projection is performed in the [employer] 2000-D unit. Computer aided detection utilizing the iCAD system was utilized. FINDINGS: The right breast is seen to be largely fatty replaced. A surgical clip is again seen superiorly and posteriorly. A few scattered benign punctate calcifications are again seen, stable, along with vascular calcifications. There is no suspicious cluster of microcalcifications, mass, or area of architectural distortion. There is no skin thickening or nipple retraction. Procedure Note Semaj Mcdermott MD - 11/10/2024 CLINICAL: The patient is a 74 years Female with personal history of leftbreast cancer which was treated with mastectomy at age 51. The patientalso has a family history of breast cancer involving her mother. Thepatient now presents for annual mammography of the right breast. COMPARISON: Most recently 11/04/2023 and most remotely 05/29/2018. TECHNIQUE: Full-field digital mammography of the right breast consistingof tomosynthesis in MLO and CC projection is performed in the [employer] 2000-D unit. Computer aided detection utilizing the Uro Jockystem was utilized. FINDINGS: The right breast is seen to be largely fatty replaced. Asurgical clip is again seen superiorly and posteriorly. A few scatteredbenign punctate calcifications are again seen, stable, along with vascularcalcifications. There is no suspicious cluster of microcalcifications,mass, or area of architectural distortion. There is no skin thickening ornipple retraction. IMPRESSION: No mammographic evidence of malignancy. A negative mammogram in the presence of a clinically suspicious palpableabnormality does not preclude the possibility of malignancy or alter theindications for biopsy. PQRI CPT II 3342F Code 74849, 62146 PQRI 225 CPT II 7025F TISSUE DENSITY: The breasts are almost entirely fatty. (BI-RADS CategoryA) IMPRESSION: Benign. BI-RADS CATEGORY: 2 - BENIGN RECOMMENDATION: Screening bilateral mammogram is recommended in 1 year. Mammo Location: [facility], [facility], [address] [place] [id number] -------- FINAL REPORT -------- Dictated By: Semaj Mcdermott Dictated Date: 11/10/2024 07:42 ET Assigned Physician: Semaj Mcdermott Reviewed and Electronically Signed By: Semaj Mcdermott Signed Date: 11/10/2024 07:45 ET Workstation ID: [id number] Transcribed By: Self Edit Transcribed Date: 11/10/2024 07:42 ET us Devon Bartlett MD IMG BI PROCEDURES Final Res ult from Last 3 Months Insurance MEDICARE [facility] [place] [id number] Care Teams Exercise Teacher Relationship Specialty Start Date End Date Jahaira Cruz NP [address] [facility] [place] [address] PCP - General Internal Medicine 11/04/17
[2025-01-06 15:10] LABS: Appearance Urine Clear; Glucose Urine UA Negative (Negative); PH 6.0 (5.0-9.0); Specific Gravity - Urine 1.020 (1.005-1.025); UMIC TRIGGER UA YES
== END 2025-01-06 13:39 | disposition home or self-care (01) ==
LOC: HO.LAB 13:38
PROVIDERS: PCP Nurse Practitioner Gerontology; Visit Provider Urology
DX: N32.81 Overactive bladder (principal)
CPT/HCPCS: 81001; 87086; 87088; 87186

== ENCOUNTER 2025-03-24 10:02 | Outpatient (AMB) | payer MEDICARE, OTHER, SELFPAY ==
--- NOTE | 2025-03-24 10:06 | A.OFFVIS_ITS ---
Vital Signs 03/24/25 10:07 Height 5 ft 1 in Weight 153 lb 7.068 oz BMI 29.0 BP 136/70 Blood Pressure Location Rt brachial Position Sitting Pulse 81 Pulse Source Pulse Oximeter Pulse Oximetry (%) 95 Oxygen Delivery Method Room Air Intake Visit Reasons: follow up Intake Note: Patient presents for Arthritis follow up. Accompanied by: Self / Same As Patient Allergies latex Allergy (Severe, Verified 03/24/25 10:06) rash and difficulty breathing cefaclor Allergy (Mild, Verified 03/24/25 10:06) Rash ciprofloxacin (From Cipro) Allergy (Mild, Verified 03/24/25 10:06) Rash codeine Allergy (Mild, Verified 03/24/25 10:06) Rash sulfamethoxazole (From Bactrim) Allergy (Mild, Verified 03/24/25 10:06) Rash trimethoprim (From Bactrim) Allergy (Mild, Verified 03/24/25 10:06) Rash Penicillins Allergy (Unknown, Verified 03/24/25 10:06) unknown HPI HPI follow up: Details: R hand is numb R CMC pain started in February. Pain in lower back worse with prolonged sitting. History of back pain 20 years. She did exercises at home but it made the back worse. She went to PT in the past year but it made the pain worse. Tylenol 1500mg or 1300mg at once or ibuprofen 600mg once if tylenol does not help. She may take another dose before bed with some benefit. Heat helps. HX GERD. PFSH Medical History Diabetes HLD (hyperlipidemia) COPD (chronic obstructive pulmonary disease) IBS (irritable bowel syndrome) Depression Breast cancer Thyroid nodule HTN (hypertension) GERD (gastroesophageal reflux disease) Asthma Bilateral nephrolithiasis Overactive bladder Surgical History Hx of cystoscopy Hx of lithotripsy S/P Botox injection (~2018) Status post left breast reconstruction (~2002) S/P thyroid biopsy (~2005) H/O left mastectomy (~2001) S/P parathyroidectomy (~2006) Social History Household Members: Family Housing: House Alcohol intake: former Patient Tobacco Use Status: Never used Tobacco Physical Exam Vital Signs: Last Vital Signs Pulse 81 03/24/25 10:07 BP 136/70 03/24/25 10:07 Pulse Ox 95 03/24/25 10:07 Oxygen Delivery Method Room Air 03/24/25 10:07 BMI result Body Mass Index 29.0 Const Other: General: Comfortable Skin: Bruising present on right dorsal hand MSK: Tenderness on palpation of right CMC with squaring present. Tender to palpate right 1st extensor compartment. Heberden's nodes noted. No synovitis. 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 Tender to palpate lower lumbar spinous process and paraspinal muscles. Good lumbar flexion. Office Procedures AMB Joint Injection/Aspiration Joint Injection/Aspiration Details: Right CMC joint Prep: site was prepped using aseptic technique Injected into each site: 10 mg of, Kenalog, with 0.25 mL of and 1% plain lidocaine Procedure: Informed verbal consent was obtained. The patient tolerated the procedure well. Postprocedure protocol was discussed with patient. Coding Additional procedure code (CPT) needed (CPT code 91821 right carpal tunnel injection) AMB Joint Injection/Aspiration Joint Injection/Aspiration Details: Right CMC Prep: site was prepped using aseptic technique Injected: 10 mg of, Kenalog, with 0.25 mL of and 1% plain lidocaine Procedure: Informed verbal consent was obtained. The patient tolerated the procedure well. Postprocedure protocol was discussed with patient. Coding 20379 - Small Joint Procedure code (CPT) selection complete Office Meds lidocaine (PF) 10 mg/mL (1 %) injection solution Performing Provider: Mark Eduardo MD Performing Location: [facility] Administered by: Ruth Vera RN on 03/24/25 12:00 Dose Route Admin Location Dispensed Lot Number Expiration Date [facility] Field Education Coordinator 0.5 mL Infiltration 2 mL [id number] 10/10/26 55369-755-94 [facility] Total Dispensed Waste 2 mL 75 % Kenalog 40 mg/mL suspension for injection Performing Provider: Mark Eduardo MD Performing Location: [facility] Administered by: Ruth Vera RN on 03/24/25 12:00 Dose Route Admin Location Dispensed Lot Number Expiration Date [facility] Field Education Coordinator 20 mg intra-articular 1 mL [id number] 11/09/26 [address]-7 [facility] Total Dispensed Waste 1 mL 50 % lidocaine (PF) 10 mg/mL (1 %) injection solution Performing Provider: Mark Eduardo MD Performing Location: [facility] Administered by: Ruth Vera RN on 03/24/25 12:00 Dose Route Admin Location Dispensed Lot Number Expiration Date [facility] Field Education Coordinator 0.25 mL Infiltration 2 mL [id number] 10/10/26 60949-394-17 [facility] Total Dispensed Waste 2 mL 87.5 % Kenalog 40 mg/mL suspension for injection Performing Provider: Mark Eduardo MD Performing Location: [facility] Administered by: Ruth Vera RN on 03/24/25 12:00 Dose Route Admin Location Dispensed Lot Number Expiration Date [facility] Field Education Coordinator 10 mg Tendon Sheath Inj. 1 mL [id number] 11/09/26 [address]- 1 [employer] Total Dispensed Waste 1 mL 75 % Assessment & Plan Assessment & Plan (1) Osteoarthritis of CMC joint of thumb: Comment: Bilateral right worse than left. Pain of right CMC has reoccurred. Last cortisone injection was July 2024. Code(s): M18.9 - Osteoarthritis of first carpometacarpal joint, unspecified Category: Medical Qualifiers: Laterality: bilateral Osteoarthritis type: primary Qualified Code(s): M18.0 - Bilateral primary osteoarthritis of first carpometacarpal joints Plan: Patient received right CMC cortisone injection this visit Return to clinic in 6 months or sooner if needed. She will call office if she needs cortisone injection for left CMC (2) Low back pain: Comment: Chronic. Partial benefit with Tylenol or ibuprofen. PT made her back pain worse. Code(s): M54.50 - Low back pain, unspecified Category: Medical Plan: L-spine x-ray ordered Continue Tylenol 1300 mg or ibuprofen 600 mg prn pain Try lidocaine patch Continue to apply heat to back as needed Try applying ice to back as needed We discussed considering pain management referral for consideration of local cortisone injections. Patient will think about it Return to clinic in 6 months or sooner if needed (3) Carpal tunnel syndrome, right: Comment: Uncontrolled. Right is uncontrolled. She is symptomatic bilaterally. Last cortisone injection was April 2024. Code(s): G56.01 - Carpal tunnel syndrome, right upper limb Category: Medical Plan: Patient received cortisone injection for treatment of right carpal tunnel syndrome Continue to wear wrist braces at night Return to clinic in 6 months or sooner if needed Orders: Orders XR lumbar spine 2-3V Today M54.50 - Low back pain, unspecified AMB Joint Injection/Aspiration Today M25.531 - Pain in right wrist AMB Joint Injection/Aspiration Today M79.641 - Pain in right hand Medications: New lidocaine 5% leave on most painful area for up to 12 hrs 1 patch topical DAILY PRN 30 ea 5RF back pain Coding Level of Care Code Est Pt Level 4 (39068) Complex EM visit Add On G2211 Diagnoses Primary osteoarthritis of both first carpometacarpal joints M18.0 Laterality: bilateral Osteoarthritis type: primary Low back pain M54.50 Carpal tunnel syndrome, right G56.01 CPT Codes Coding - - Small joint: - Small Joint ([id number])
[2025-03-24 10:07] VITALS: BP 136/70; PULSE 81; O2SAT 95; BMI 29.0
--- OUTSIDE RECORDS SUMMARY | 2025-03-24 11:45 | XMS_ITS | Clinical Summary ---
Author Organization [facility] Address [address] [place] [address] Phone Care Team Providers Care Office Clerk Assistant Name Role Phone Jahaira Cruz NP Primary Care Provider [phone] Allergies Active Allergy Reactions Criticality Noted Date [...] per tabletIndication s:Irritable bowel syndrome with diarrhea TAKE 2 TABLETS BY MOUTH 3 TIMES A DAY 540 tablet 2 5 Active Restasis 0.05 % ophthalmic emulsion Administer 1 drop into both eyes 2 (two) times a day. Active colestipoL (Colestid) 1 gram tabletIndication s:Irritable bowel syndrome with diarrhea Take 2 tablets (2 g total) by mouth 2 (two) times a day. 360 each 1 5 06/21/19 26 Active Active Problems Problem Noted Date [...] of colon 06/10/2024 [facility] 2 [facility] ([facility] V24, CMS/[facility] V28) 06/10/2024 Malignant neoplasm of left f emale breast (CMS/HCC V24, CMS/[facility] V28) 06/10/2024 Uncomplicated asthma 06/10/2024 Depression 06/10/2024 Carpal tunnel syndrome of right wrist 03/21/2018 Chronic obstructive pulmonar y disease (COPD) ([facility] V24, [facility] V28) 03/21/2018 Hyperlipidemia 03/21/2018 Insomnia 03/21/2018 Osteoarthritis 03/21/2018 Seasonal allergies 03/21/2018 Hypertension 11/14/2017 Kidney stone 11/14/2017 Urinary incontinence 11/14/2017 RHETT (obstructive sleep apnea) 11/04/2017 Encounters Date Type Department Care Team Description 02/16/2025 Lab Requisition [facility] [address] [facility] [place] [address] Davina Velasco MD Type 2 diabetes mellitus without complications ([facility] V24, [facility] V28) 12/23/2024 2:10 PM EDT Office Visit Gastroenterology - [address] [facility] [address] [place] [address] Mary Anne Castillo PA Irritable bowel syndrome with diarrhea (Primary Dx); Gastroesophageal reflux disease without esophagitis; Gastroparesis from Last 3 Months Immunizations Immunization Administration Dates Next Due Influenza Quadravalent, 0.5m l (Fluad) 65yo and older 03/14/2023,03/12/2022,03/17/2021,02/21 Influenza Whole 03/11/2019 Influenza trivalent, 0.5mL ( Fluad) 65yo and older 03/08/2024 Influenza trivalent, 0.5mL ( Fluzone High-dose) 65yo and older 03/11/2019,02/13/2018 Influenza trivalent, with pr eservative (Fluzone; Afluria) 6mo and older 05/17/2010 Influenza, live, intranasal, quadrivalent (FluMist) 2yo to less than 50yo 02/22/2017 Pfizer (ages 12 & older) AURELIO S-CoV-2 COVID-19, mRNA, LNP-S, april-sucrose, preservative free 08/22/2021 Pfizer SARS-CoV-2 COVID-19, mRNA, LNP-S, preservative free 02/21/2021,08/18/2020,07/28/2020 Pneumococcal polysaccharide 23 valent (Pneumovax 23) 2yo and older 06/18/2017 RSV, bivalent, protein subun it RSVpreF, 0.5mL, Preservative Free (Arexvy) 50yo and older 04/06/2023 Tdap Tetanus diptheria acell [...] Comments Allergy DX:Allergy Asthma DX:Asthma Breast cancer ([facility] V24, [facility] V28) DX:Breast cancer (HCC) left Depression DX:Depression Gallstones DX:Gallstones Hypertension DX:Hypertension [...] Description 10/14/2025 10:00 AM EDT Office Visit [facility] Hematology Oncology [address] [place] [address] Devon Bartlett MD [address] [place] [address] Health Maintenance Due Date Last Done Comments Colorectal Cancer Screening: Colonoscopy 1949 Diabetes: Annual Foot Exam 1959 Diabetes: Annual Retina Eye Exam 1959 Pneumococcal Vaccine: 50+ Years (2 of 2 - PCV) 06/18/2018 06/18/2017 Zoster Vaccines (2 of 2) 06/24/2020 04/29/2020 Cholesterol Screening (Lipid Panel) 04/19/2022 Falls Risk Assessment 04/19/2022 Hepatitis C Screening 04/19/2022 Osteoporosis Screening (Bone Density Screening) 04/19/2022 Social Influencers of Health Screening 04/19/2022 Medicare Annual Wellness Visit 03/21/2023 03/21/2022 Diabetes: Annual Urine Albumin-Creatinine Ratio (uACR) 04/02/2024 Depression Screening 05/13/2024 COVID-19 Vaccine ( season) 2025 10/04/2024, 03/08/2024, 04/06/2023, Additional history exists Influenza Vaccine (#1) 2025 , 03/14/2023, 03/12/2022, Additional history exists Diabetes: Blood Sugar Control Test (HGBA1C) 08/17/2025 02/16/2025 Diabetes: Annual GFR (Glomerular Filtration Rate) 02/16/2026 02/16/2025 Hypertension/CHF/CAD Annual BMP Blood Test 02/16/2026 02/16/2025 DTaP,Tdap,and Td Vaccines (2 - Td or Tdap) 03/28/2033 03/28/2023 RSV Immunization Adult Patients Completed 04/06/2023 Breast Cancer Screening Discontinued 11/09/2024 HIB Vaccines [...] Procedure Name Priority Date/Time Associated Diagnosis Comments HEMOGLOBIN A1C Routine 02/16/2025 7:15 AM EDT Type 2 diabetes mellitus without complications ([facility]/HCC V24, CMS/HCC V28) BASIC METABOLIC PANEL Routine 02/16/2025 7:15 AM EDT Type 2 diabetes mellitus without complications ([facility]/HCC V24, CMS/HCC V28) COMPLETE BLOOD COUNT Routine 02/16/2025 7:15 AM EDT Type 2 diabetes mellitus without complications ([facility]/HCC V24, CMS/HCC V28) MG MAMMO DIGITAL SCREENING W LUDWIG RIGHT Routine 11/09/2024 3:42 PM EDT Malignant neoplasm of overlapping sites of left breast in female, estrogen receptor positive (CMS/HCC V24, CMS/HCC V28) Encounter for screening mammogram for malignant neoplasm of breast from Last 3 Months or Most Recently Relevant to Health Maintenance Results * (ABNORMAL) Complete blood count (02/16/2025 7:15 AM EDT) WBC 5.1 4.8 - 10.8 K/[facility] LAB HEMETOLOGY METHOD 02/16/2025 9:20 AM EDT [facility] RBC 3.80 3.80 - 4.80 M/mcL LAB HEMETOLOGY METHOD 02/16/2025 9:20 AM [facility] Hemoglobin 10.5(L) 11.5 - 16.0 g/dL LAB HEMETOLOGY METHOD 02/16/2025 9:20 AM [facility] LAB Hematocrit 33.5(L) 35.0 - 47.0 % LAB HEMETOLOGY METHOD 02/16/2025 9:20 AM [facility] MCV 88.2 79.0 - 98.0 FL LAB HEMETOLOGY METHOD 02/16/2025 9:20 AM [facility] MCH 27.6 27.0 - 32.0 pcg LAB HEMETOLOGY METHOD 02/16/2025 9:20 AM [facility] MCHC 31.3(L) 32.0 - 37.0 g/dL LAB HEMETOLOGY METHOD 02/16/2025 9:20 AM [facility] RDW 14.3 11.0 - 15.0 % LAB HEMETOLOGY METHOD 02/16/2025 9:20 AM [facility] Platelets 292 130 - 400 K/mcL LAB HEMETOLOGY METHOD 02/16/2025 9:20 AM [facility] MPV 9.1 7.0 - 11.0 FL LAB HEMETOLOGY METHOD 02/16/2025 9:20 AM [facility] NRBC 0.0 <1.0 % LAB HEMETOLOGY METHOD 02/16/2025 9:20 AM [facility] LAB NRBC Absolute 0.00 <0.10 K/mcL LAB HEMETOLOGY METHOD 02/16/2025 9:20 AM [facility] Blood Venous blood specimen / Unknown Venipuncture / Unknown 02/16/2025 7:15 AM EDT 02/16/2025 8:09 AM EDT us Davina Velasco MD LAB BLOOD ORDERABLES Final Resu lt Performing Organization Address City/[facility]/ZIP Co de Phone Number [facility] LAB [address] [place] [address], [place] [phone] * Hemoglobin A1c (02/16/2025 7:15 AM EDT) Pathologist [facility] Hemoglobin A1C 6.1 <6.5 % LAB CHEMISTRY METHOD 02/16/2025 1:37 PM EDT [facility] Mean Bld Glu Estim. 128 mg/dL LAB CHEMISTRY METHOD 02/16/2025 1:37 PM EDT [facility] Blood Venous blood specimen / Unknown Venipuncture / Unknown 02/16/2025 7:15 AM EDT 02/16/2025 8:09 AM EDT us Davina Velasco MD LAB BLOOD ORDERABLES Final Resu lt Performing Organization Address [facility]/ZIP Co de Phone Number [facility] [address] [place] [address], [place] [phone] * (ABNORMAL) Basic metabolic panel (02/16/2025 7:15 AM EDT) Pathologist [facility] Sodium 141 133 - 145 mmol/L LAB CHEMISTRY METHOD 02/16/2025 9:59 AM EDT [facility] Potassium 4.4 3.5 - 5.5 mmol/L LAB CHEMISTRY METHOD 02/16/2025 9:59 AM EDT [facility] Chloride 111(H) 96 - 110 mmol/L LAB CHEMISTRY METHOD 02/16/2025 9:59 AM EDT [facility] CO2 22 21 - 32 mmol/L LAB CHEMISTRY METHOD 02/16/2025 9:59 AM EDT [facility] Anion Gap 8 3 - 11 LAB CHEMISTRY METHOD 02/16/2025 9:59 AM EDT [facility] Glucose 99 70 - 100 mg/dL LAB CHEMISTRY METHOD 02/16/2025 9:59 AM EDT [facility] BUN 27(H) 5 - 25 mg/dL LAB CHEMISTRY METHOD 02/16/2025 9:59 AM EDT [facility] Creatinine 0.97 0.50 - 1.10 mg/dL LAB CHEMISTRY METHOD 02/16/2025 9:59 AM EDT [facility] LAB eGFR 61 >=60 mL/min/1. 73m2 LAB CHEMISTRY METHOD 02/16/2025 9:59 AM EDT [facility] LAB Comment:Calculation based on the Chronic Kidney Disease Epidemiology Collaboration (CKD-EPI) equation refit without adjustment for race. BUN/Creatinine Ratio 27.8 LAB CHEMISTRY METHOD 02/16/2025 9:59 AM EDT [facility] Calcium 9.3 8.5 - 10.5 mg/dL LAB CHEMISTRY METHOD 02/16/2025 9:59 AM EDT [facility] Blood Venous blood specimen / Unknown Venipuncture / Unknown 02/16/2025 7:15 AM EDT 02/16/2025 8:09 AM EDT us Davina Velasco MD LAB BLOOD ORDERABLES Final Resu lt [facility] [address] [place] [address], * MG Mammo Digital Screening w Ludwig Right (11/09/2024 3:42 PM EDT) Anatomical Region Laterality Modality Breast Right Mammography 11/10/2024 7:42 AM EDT Impressions 11/10/2024 7:45 AM EDT No mammographic evidence of malignancy. A negative mammogram in the presence of a clinically suspicious palpable abnormality does not preclude the possibility of malignancy or alter the indications for biopsy. PQRI CPT II 3342F Code 72394, 69895 PQRI 225 CPT II 7025F TISSUE DENSITY: The breasts are almost entirely fatty. (BI-RADS Category A) IMPRESSION: Benign. BI-RADS CATEGORY: 2 - BENIGN RECOMMENDATION: Screening bilateral mammogram is recommended in 1 year. Mammo Location: [facility], [address] [place] [id number] -------- FINAL REPORT -------- Dictated By: Semaj Mcdermott Dictated Date: 11/10/2024 07:42 ET Assigned Physician: Semaj Mcdermott Reviewed and Electronically Signed By: Semaj Mcdermott Signed Date: 11/10/2024 07:45 ET Workstation ID: [id number] Transcribed By: Self Edit Transcribed Date: 11/10/2024 [...] and CC projection is performed in the FanLib 2000-D unit. Computer aided detection utilizing the Memopal system was utilized. FINDINGS: The right breast [...] and CC projection is performed in the GESenographe 2000-D unit. Computer aided detection utilizing the iTwixieystem was utilized. FINDINGS: The right breast is [...] for biopsy. PQRI CPT II 3342F Code 40523, 92668 PQRI 225 CPT II 7025F TISSUE DENSITY: The breasts are almost entirely fatty. (BI-RADS CategoryA) IMPRESSION: Benign. BI-RADS CATEGORY: 2 - BENIGN RECOMMENDATION: Screening bilateral mammogram is recommended in 1 year. Mammo Location: [facility], [place] [facility], [address] [place] [address] -------- FINAL REPORT -------- Dictated By: Semaj Mcdermott Dictated Date: 11/10/2024 07:42 ET Assigned Physician: Semaj Mcdermott Reviewed and Electronically Signed By: Semaj Mcdermott Signed Date: 11/10/2024 07:45 ET Workstation ID: [id number] Transcribed By: Self Edit Transcribed Date: 11/10/2024 07:42 ET Devon Bartlett MD IMG BI PROCEDURES Final Res ult from Last 3 Months or Most Recently Relevant to Health Maintenance Insurance MEDICARE [facility] Care Teams Office Clerk Assistant Relationship Specialty Start Date End Date Jahaira Cruz NP [address] [place] [address] PCP - General Internal Medicine 11/04/17
--- OUTSIDE RECORDS SUMMARY | 2025-03-24 11:45 | XMS_ITS | Clinical Summary ---
Author Organization [facility] Address [address] [place] [address] Care Team Providers Care Canine Service Teacher Name Role Phone AnthonyJahaira Sharon INSPECTOR [employer] Primary Care Provider [phone] Allergies Active Allergy Reactions Criticality Noted Date [...] Shingrix-Zoster Vaccine (2 of 2) 06/24/2020 04/29/2020 RSV Adult > 60+ Yrs or (1 - 1-dose 75+ series) 2024 COVID-19 Vaccine ( season) 2025 08/22/2021, 02/21/2021, 08/18/2020, Additional history exists Influenza Vaccine (#1) 2025 2, 03/17/2021, 02/13/2018, Additional history exists Hepatitis B Vaccines Aged Out No long er eligible based on patient's age to complete this topic RSV Ped < 20 months Aged Out No longe r eligible based on patient's age to complete this topic Care Teams Canine Service Teacher Relationship Specialty Start Date End Date Jahaira Cruz NP [address] [place] [phone] PCP - General Nurse Practitioner 05/20/18
--- OUTSIDE RECORDS SUMMARY | 2025-03-24 11:45 | XMS_ITS | Encounter Summary ---
Author Organization [facility] Address [address] [place] [address] Care Team Providers Care Electric Brain Wave Equipment Mechanic Name Role Phone Jahaira Cruz NP Primary Care Provider [phone] Encounter Details Date Type Department Care Team (Latest Contact Info) Description 02/16/2025 Lab Requisition [facility] - Main Lab [address] [facility] [place] [address] Davina Velasco MD [address] [place] [address] Type 2 diabetes mellitus without complications (CMS/HCC V24, CMS/HCC V28) Social History Tobacco Use Types Packs/Day Years [...] on file documented as of this encounter Plan of Treatment Upcoming Encounters Date Type Department Care Team (Late st Contact Info) Description 10/14/2025 10:00 AM EDT Office Visit [facility] Hematology Oncology [address] [place] [address] Devon Bartlett MD [address] [place] [address] documented as of this encounter Procedures Procedure Name Priority Date/Time Associated Diagnosis Comments COMPLETE BLOOD COUNT Routine 02/16/2025 7:15 AM EDT Type 2 diabetes mellitus without complications ([facility] [place]24, [facility] V28) HEMOGLOBIN A1C Routine 02/16/2025 7:15 AM EDT Type 2 diabetes mellitus without complications ([facility] V24, [facility] V28) BASIC METABOLIC PANEL Routine 02/16/2025 7:15 AM EDT Type 2 diabetes mellitus without complications ([facility] V24, [facility] V28) documented in this encounter Results * Hemoglobin A1c (02/16/2025 7:15 AM EDT) Pathologist [facility] Hemoglobin A1C 6.1 <6.5 % LAB CHEMISTRY METHOD 02/16/2025 1:37 PM EDT [facility] Mean Bld Glu Estim. 128 mg/dL LAB CHEMISTRY METHOD 02/16/2025 1:37 PM EDT [facility] Blood Venous blood specimen / Unknown Venipuncture / Unknown 02/16/2025 7:15 AM EDT 02/16/2025 8:09 AM EDT us Davina Velasco MD LAB BLOOD ORDERABLES Final Resu lt [facility] [address] [place] [address], * (ABNORMAL) Basic metabolic panel (02/16/2025 7:15 AM EDT) Pathologist [facility] Sodium 141 133 - 145 mmol/L LAB CHEMISTRY METHOD 02/16/2025 9:59 AM EDT [facility] Potassium 4.4 3.5 - 5.5 mmol/L LAB CHEMISTRY METHOD 02/16/2025 9:59 AM EDT [facility] Chloride 111(H) 96 - 110 mmol/L LAB CHEMISTRY METHOD 02/16/2025 9:59 AM EDT [facility] CO2 22 21 - 32 mmol/L LAB CHEMISTRY METHOD 02/16/2025 9:59 AM [facility] Anion Gap 8 3 - 11 LAB CHEMISTRY METHOD 02/16/2025 9:59 AM [facility] Glucose 99 70 - 100 mg/dL LAB CHEMISTRY METHOD 02/16/2025 9:59 AM [facility] BUN 27(H) 5 - 25 mg/dL LAB CHEMISTRY METHOD 02/16/2025 9:59 AM T [facility] Creatinine 0.97 0.50 - 1.10 mg/dL LAB CHEMISTRY METHOD 02/16/2025 9:59 AM [facility] eGFR 61 >=60 mL/min/1. 73m2 LAB CHEMISTRY METHOD 02/16/2025 9:59 AM [facility] Comment:Calculation based on the Chronic Kidney Disease Epidemiology Collaboration (CKD-EPI) equation refit without adjustment for race. BUN/Creatinine Ratio 27.8 LAB CHEMISTRY METHOD 02/16/2025 9:59 AM [facility] Calcium 9.3 8.5 - 10.5 mg/dL LAB CHEMISTRY METHOD 02/16/2025 9:59 AM [facility] Blood Venous blood specimen / Unknown Venipuncture / Unknown 02/16/2025 7:15 AM EDT 02/16/2025 8:09 AM EDT us Davina Velasco MD LAB BLOOD ORDERABLES Final Resu lt [facility] [address] [place] [address], * (ABNORMAL) Complete blood count (02/16/2025 7:15 AM EDT) WBC 5.1 4.8 - 10.8 K/[facility] LAB HEMETOLOGY METHOD 02/16/2025 9:20 AM [facility] RBC 3.80 3.80 - 4.80 M/mcL LAB HEMETOLOGY METHOD 02/16/2025 9:20 AM [facility] Hemoglobin 10.5(L) 11.5 - 16.0 g/dL LAB HEMETOLOGY METHOD 02/16/2025 9:20 AM [facility] Hematocrit 33.5(L) 35.0 - 47.0 % LAB HEMETOLOGY METHOD 02/16/2025 9:20 AM [facility] MCV 88.2 79.0 - 98.0 FL LAB HEMETOLOGY METHOD 02/16/2025 9:20 AM [facility] MCH 27.6 27.0 - 32.0 pcg LAB HEMETOLOGY METHOD 02/16/2025 9:20 AM [facility] MCHC 31.3(L) 32.0 - 37.0 g/dL LAB HEMETOLOGY METHOD 02/16/2025 9:20 AM [facility] RDW 14.3 11.0 - 15.0 % LAB HEMETOLOGY METHOD 02/16/2025 9:20 AM [facility] Platelets 292 130 - 400 K/mcL LAB HEMETOLOGY METHOD 02/16/2025 9:20 AM [facility] MPV 9.1 7.0 - 11.0 FL LAB HEMETOLOGY METHOD 02/16/2025 9:20 AM [facility] NRBC 0.0 <1.0 % LAB HEMETOLOGY METHOD 02/16/2025 9:20 AM [facility] NRBC Absolute 0.00 <0.10 K/mcL LAB HEMETOLOGY METHOD 02/16/2025 9:20 AM [facility] Blood Venous blood specimen / Unknown Venipuncture / Unknown 02/16/2025 7:15 AM EDT 02/16/2025 8:09 AM EDT us Davina Velasco MD LAB BLOOD ORDERABLES Final [facility]u lt [facility] [address] [place] [address], documented in this encounter Visit Diagnoses Diagnosis Type 2 diabetes mellitus without complications (CMS/HCC V24, CMS/HCC V28) documented in this encounter Care Teams Electric Brain Wave Equipment Mechanic Relationship Specialty Start Date End Date Jahaira Cruz NP [address] [facility] [place] [address] PCP - General Internal Medicine 11/04/17 documented as of this encounter
== END 2025-03-24 10:53 | disposition home or self-care (01) ==
LOC: HO.RHES 10:03
PROVIDERS: PCP Nurse Practitioner Gerontology; Visit Provider Internal Medicine Rheumatology
DX: M18.11 Unilateral primary osteoarthritis of first carpometacarpal joint, right hand (principal); G56.01 Carpal tunnel syndrome, right upper limb; M54.50 Low back pain, unspecified; M79.641 Pain in right hand
CPT/HCPCS: 20550; 20600; 99213

== ENCOUNTER → 2025-03-24 10:02 | Outpatient (BNVA) | payer MEDICARE, OTHER, SELFPAY | PROVIDERS: PCP Nurse Practitioner Gerontology; Visit Provider Internal Medicine Rheumatology | DX: M18.0 Bilateral primary osteoarthritis of first carpometacarpal joints (principal); G56.01 Carpal tunnel syndrome, right upper limb; M54.50 Low back pain, unspecified | CPT/HCPCS: 20526; 20550; 20600; 99212; J2003; J3301 ==

== ENCOUNTER 2025-03-25 11:40 | Outpatient (REF) | payer MEDICARE, OTHER, SELFPAY ==
--- NOTE | ~2025-03-25 | XR_ITS ---
EXAMINATION: XR LUMBOSACRAL SPINE CLINICAL INFORMATION: M54.50 - Low back pain, unspecified COMPARISON: Correlated to CT abdomen pelvis dated August 14, 2024. TECHNIQUE: AP and lateral views. FINDINGS: Multilevel marginal osteophyte formation and endplate sclerosis and decreased intervertebral disc height throughout the axial skeleton pronounced at L5-S1. Bilateral facet joint hypertrophy at L4-5 and L5-S1. 2 mm retrolisthesis L5-S1. Vascular calcifications, aorta. Vascular clips right upper quadrant abdomen. XR/XR lumbar spine 2-3V IMPRESSION: Multilevel thoracolumbar spondylosis pronounced at L5-S1 and to a lesser extent L4-5 resulting in grade 1 retrolisthesis L5-S1. Atherosclerosis disease, aorta. Electronically signed by: Errol Mcmullen MD 03/25/2025 01:43 PM [facility]
--- OUTSIDE RECORDS SUMMARY | 2025-03-25 14:50 | XMS_ITS | Encounter Summary ---
Author Organization [facility] Address [address] [place] [address] Care Team Providers Care Rehabilitation Specialist Name Role Phone Jahaira Cruz NP Primary Care Provider [phone] Encounter Details Date Type Department Care Team (Latest Contact Info) Description 02/16/2025 Lab Requisition [facility] - Main Lab [address] [facility] [place] [address] Davina Velasco MD [address] [place] [address] Type 2 diabetes mellitus without complications (CMS/HCC [...] Description 10/14/2025 10:00 AM EDT Office Visit [facility] Hematology Oncology [address] [place] [address] Devon Bartlett MD [address] [place] [address] documented as of this encounter Procedures Procedure Name Priority Date/Time Associated Diagnosis Comments COMPLETE BLOOD COUNT Routine 02/16/2025 7:15 AM EDT Type 2 diabetes mellitus without complications ([facility] V24, [facility] V28) HEMOGLOBIN A1C Routine 02/16/2025 7:15 AM EDT Type 2 diabetes mellitus without complications ([facility] V24, [facility] V28) BASIC METABOLIC PANEL Routine 02/16/2025 7:15 AM EDT Type 2 diabetes mellitus without complications ([facility] V24, [facility] V28) documented in this encounter Results * Hemoglobin A1c (02/16/2025 7:15 AM EDT) Pathologist [facility] [place] Hemoglobin A1C 6.1 <6.5 % LAB CHEMISTRY METHOD 02/16/2025 1:37 PM EDT [facility] Mean Bld Glu Estim. 128 mg/dL LAB CHEMISTRY METHOD 02/16/2025 1:37 PM EDT [facility] Blood Venous blood specimen / Unknown Venipuncture / Unknown 02/16/2025 7:15 AM EDT 02/16/2025 8:09 AM EDT us Davina Velasco MD LAB BLOOD ORDERABLES Final Resu lt [facility] [address] [place] [address], * (ABNORMAL) Basic metabolic panel (02/16/2025 7:15 AM EDT) Pathologist [facility] [place] Sodium 141 133 - 145 mmol/L LAB CHEMISTRY METHOD 02/16/2025 9:59 AM EDT [facility] Potassium 4.4 3.5 - 5.5 mmol/L LAB CHEMISTRY METHOD 02/16/2025 9:59 AM EDT [facility] Chloride 111(H) 96 - 110 mmol/L LAB CHEMISTRY METHOD 02/16/2025 9:59 AM EDT [facility] CO2 22 21 - 32 mmol/L LAB CHEMISTRY METHOD 02/16/2025 9:59 AM [facility] Anion Gap 8 3 - 11 LAB CHEMISTRY METHOD 02/16/2025 9:59 AM [facility] Glucose 99 70 - 100 mg/dL LAB CHEMISTRY METHOD 02/16/2025 9:59 AM [facility] BUN 27(H) 5 - 25 mg/dL LAB CHEMISTRY METHOD 02/16/2025 9:59 AM T [facility] Creatinine 0.97 0.50 - 1.10 mg/dL LAB CHEMISTRY METHOD 02/16/2025 9:59 AM [facility] eGFR 61 >=60 mL/min/1. 73m2 LAB CHEMISTRY METHOD 02/16/2025 9:59 AM [facility] Comment:Calculation based on the Chronic Kidney Disease Epidemiology Collaboration (CKD-EPI) equation refit without adjustment for race. BUN/Creatinine Ratio 27.8 LAB CHEMISTRY METHOD 02/16/2025 9:59 AM [facility] Calcium 9.3 8.5 - 10.5 mg/dL LAB CHEMISTRY METHOD 02/16/2025 9:59 AM [facility] Blood Venous blood specimen / Unknown Venipuncture / Unknown 02/16/2025 7:15 AM EDT 02/16/2025 8:09 AM EDT us Davina Velasco MD LAB BLOOD ORDERABLES Final Resu lt [facility] [address] [place] [address], * (ABNORMAL) Complete blood count (02/16/2025 7:15 AM EDT) WBC 5.1 4.8 - 10.8 K/[facility] LAB HEMETOLOGY METHOD 02/16/2025 9:20 AM [facility] RBC 3.80 3.80 - 4.80 [...] MD LAB BLOOD ORDERABLES Final [facility] [address] [place] [address], documented in this encounter Visit Diagnoses Diagnosis Type 2 diabetes mellitus without complications (CMS/HCC V24, CMS/HCC V28) documented in this encounter Care Teams Rehabilitation Specialist Relationship Specialty Start Date End Date Jahaira Cruz NP [address] [facility] [place] [address] PCP - General Internal Medicine 11/04/17 documented as of this encounter
--- OUTSIDE RECORDS SUMMARY | 2025-03-25 14:51 | XMS_ITS | Clinical Summary ---
Author Organization [facility] Address [address] [place] [address] Phone Care Team Providers Care Applications Project Manager Name Role Phone Jahaira Cruz NP Primary Care Provider [phone] Allergies Active Allergy Reactions Criticality Noted Date [...] of colon 06/10/2024 [facility] 2 [facility] ([facility] V24, [facility] V28) 06/10/2024 Malignant neoplasm of left f emale breast (CMS/HCC V24, [facility] V28) 06/10/2024 Uncomplicated asthma 06/10/2024 Depression 06/10/2024 Carpal tunnel syndrome of right wrist 03/21/2018 Chronic obstructive pulmonar y disease (COPD) ([facility] V24, [facility] V28) 03/21/2018 Hyperlipidemia 03/21/2018 Insomnia 03/21/2018 Osteoarthritis 03/21/2018 Seasonal allergies 03/21/2018 Hypertension 11/14/2017 Kidney stone 11/14/2017 Urinary incontinence 11/14/2017 RHETT (obstructive sleep apnea) 11/04/2017 Encounters Date Type Department Care Team Description 02/16/2025 Lab Requisition [facility] - Main Lab [address] [facility] [place] [address] Davina Velasco MD Type 2 diabetes mellitus without complications ([facility] V24, [facility] V28) 12/23/2024 2:10 PM EDT Office Visit Gastroenterology - [address] [facility] [address] [place] [address] Mary Anne Castillo PA Irritable [...] Comments Allergy DX:Allergy Asthma DX:Asthma Breast cancer ([facility] V24, [facility] V28) DX:Breast cancer (HCC) left Depression DX:Depression [...] Description 10/14/2025 10:00 AM EDT Office Visit [facility] Hematology Oncology [address] [place] [address] Devon Bartlett MD [address] [place] [address] Health Maintenance Due Date Last [...] Screening 04/19/2022 Medicare Annual Wellness Visit 03/21/2023 Diabetes: Annual Urine Albumin-Creatinine Ratio (uACR) 04/02/2024 [...] EDT Type 2 diabetes mellitus without complications ([facility] V24, [facility] V28) BASIC METABOLIC PANEL Routine 02/16/2025 7:15 AM EDT Type 2 diabetes mellitus without complications ([facility]/HCC V24, CMS/HCC V28) COMPLETE BLOOD COUNT Routine 02/16/2025 7:15 AM EDT Type 2 diabetes mellitus without complications ([facility] V24, [facility] V28) MG MAMMO DIGITAL SCREENING W LUDWIG RIGHT Routine 11/09/2024 3:42 PM EDT Malignant neoplasm of overlapping sites of left breast in female, estrogen receptor positive (CMS/HCC V24, CMS/HCC V28) Encounter for screening mammogram for malignant neoplasm of breast from Last 3 Months or Most Recently Relevant to Health Maintenance Results * (ABNORMAL) Complete blood count (02/16/2025 7:15 AM EDT) [facility] Signature WBC 5.1 4.8 - 10.8 K/mcL LAB HEMETOLOGY METHOD 02/16/2025 9:[address] [facility] RBC 3.80 3.80 - 4.80 M/mcL LAB HEMETOLOGY METHOD 02/16/2025 9:20 AM [facility] Hemoglobin 10.5(L) 11.5 - 16.0 g/dL LAB HEMETOLOGY METHOD 02/16/2025 9:20 AM [facility] Hematocrit 33.5(L) 35.0 - 47.0 % LAB HEMETOLOGY METHOD 02/16/2025 9:20 AM [facility] MCV 88.2 79.0 - 98.0 FL LAB HEMETOLOGY METHOD 02/16/2025 9:20 AM [facility] MCH 27.6 27.0 - 32.0 pcg LAB HEMETOLOGY METHOD 02/16/2025 9:20 AM [facility] MCHC 31.3(L) 32.0 - 37.0 g/dL LAB HEMETOLOGY METHOD 02/16/2025 9:20 AM [facility] RDW 14.3 11.0 - 15.0 % LAB HEMETOLOGY METHOD 02/16/2025 9:20 AM [facility] Platelets 292 130 - 400 K/mcL LAB HEMETOLOGY METHOD 02/16/2025 9:20 AM [facility] MPV 9.1 7.0 - 11.0 FL LAB HEMETOLOGY METHOD 02/16/2025 9:20 AM [facility] NRBC 0.0 <1.0 % LAB HEMETOLOGY METHOD 02/16/2025 9:20 AM [facility] NRBC Absolute 0.00 <0.10 K/mcL LAB HEMETOLOGY METHOD 02/16/2025 9:20 AM [facility] Blood Venous blood specimen / Unknown Venipuncture / Unknown 02/16/2025 7:15 AM EDT 02/16/2025 8:09 AM EDT us Davina Velasco MD LAB BLOOD ORDERABLES Final Resu lt Performing Organization Address City/[facility]/ZIP Co de Phone Number [facility] [address] [place] [address], [place] [phone] * Hemoglobin A1c (02/16/2025 7:15 AM EDT) Pathologist [facility] Hemoglobin A1C 6.1 <6.5 % LAB CHEMISTRY METHOD 02/16/2025 1:[address] [facility] Mean Bld Glu Estim. 128 mg/dL LAB CHEMISTRY METHOD 02/16/2025 1:[address] [facility] Blood Venous blood specimen / Unknown Venipuncture / Unknown 02/16/2025 7:15 AM EDT 02/16/2025 8:09 AM EDT us Davina Velasco MD LAB BLOOD ORDERABLES Final Resu lt Performing Organization Address [facility]/ZIP Co de Phone Number [facility] [address] [place] [address], [place] [phone] * (ABNORMAL) Basic metabolic panel (02/16/2025 7:15 AM EDT) [facility] Sodium 141 133 - 145 mmol/L LAB CHEMISTRY METHOD 02/16/2025 9:[address] [facility] Potassium 4.4 3.5 - 5.5 mmol/L LAB CHEMISTRY METHOD 02/16/2025 9:[address] [facility] Chloride 111(H) 96 - 110 mmol/L LAB CHEMISTRY METHOD 02/16/2025 9:[address] [facility] CO2 22 21 - 32 mmol/L LAB CHEMISTRY METHOD 02/16/2025 9:[address] [facility] Anion Gap 8 3 - 11 LAB CHEMISTRY METHOD 02/16/2025 9:[address] [facility] Glucose 99 70 - 100 mg/dL LAB CHEMISTRY METHOD 02/16/2025 9:[address] [facility] BUN 27(H) 5 - 25 mg/dL LAB CHEMISTRY METHOD 02/16/2025 9:[address] [facility] Creatinine 0.97 0.50 - 1.10 mg/dL LAB CHEMISTRY METHOD 02/16/2025 9:[address] [facility] eGFR 61 >=60 mL/min/1. 73m2 LAB CHEMISTRY METHOD 02/16/2025 9:[address] [facility] Comment:Calculation based on the Chronic Kidney Disease Epidemiology Collaboration (CKD-EPI) equation refit without adjustment for race. BUN/Creatinine Ratio 27.8 LAB CHEMISTRY METHOD 02/16/2025 9:[address] [facility] Calcium 9.3 8.5 - 10.5 mg/dL LAB CHEMISTRY METHOD 02/16/2025 9:[address] [facility] Blood Venous blood specimen / Unknown Venipuncture / Unknown 02/16/2025 7:15 AM EDT 02/16/2025 8:09 AM EDT us Davina Velasco MD LAB BLOOD ORDERABLES Final Resu lt [facility] [address] [place] [address], * MG Mammo Digital Screening w Ludwig Right (11/09/2024 3:42 PM EDT) Anatomical Region Laterality Modality Breast Right Mammography 11/10/2024 7:42 AM EDT Impressions 11/10/2024 7:45 AM EDT No mammographic evidence of malignancy. A negative mammogram in the presence of a clinically suspicious palpable abnormality does not preclude the possibility of malignancy or alter the indications for biopsy. PQRI CPT II 3342F Code 83841, 22417 PQRI 225 CPT II 7025F TISSUE DENSITY: The breasts are almost entirely fatty. (BI-RADS Category A) IMPRESSION: Benign. BI-RADS CATEGORY: 2 - BENIGN RECOMMENDATION: Screening bilateral mammogram is recommended in 1 year. Mammo Location: [facility], [address] [place] [id number] -------- FINAL REPORT -------- Dictated By: Semaj Mcdermott Dictated Date: 11/10/2024 07:42 ET Assigned Physician: Semaj Mcdermott Reviewed and Electronically Signed By: Semaj Mcdermott Signed Date: 11/10/2024 07:45 ET Workstation ID: [id number] Transcribed By: Self Edit Transcribed Date: 11/10/2024 [...] and CC projection is performed in the Luxim 2000-D unit. Computer aided detection utilizing the [employer] system was utilized. FINDINGS: The right breast [...] and CC projection is performed in the [employer] 2000-D unit. Computer aided detection utilizing the iCADsystem was utilized. FINDINGS: The right breast is [...] for biopsy. PQRI CPT II 3342F Code 96282, 38655 PQRI 225 CPT II 7025F TISSUE DENSITY: The breasts are almost entirely fatty. (BI-RADS CategoryA) IMPRESSION: Benign. BI-RADS CATEGORY: 2 - BENIGN RECOMMENDATION: Screening bilateral mammogram is recommended in 1 year. Mammo Location: [facility], [address] [place] [address] -------- FINAL REPORT -------- Dictated By: Semaj Mcdermott Dictated Date: 11/10/2024 07:42 ET Assigned Physician: Semaj Mcdermott Reviewed and Electronically Signed By: Semaj Mcdermott Signed Date: 11/10/2024 07:45 ET Workstation ID: [id number] Transcribed By: Self Edit Transcribed Date: 11/10/2024 07:42 ET Devon Bartlett MD IMG BI PROCEDURES Final Res ult from Last 3 Months or Most Recently Relevant to Health Maintenance Insurance MEDICARE [facility] Care Teams Applications Project Manager Relationship Specialty Start Date End Date Jahaira Cruz NP [address] [place] [address] PCP - General Internal Medicine 11/04/17
--- OUTSIDE RECORDS SUMMARY | 2025-03-25 14:51 | XMS_ITS | Clinical Summary ---
Author Organization [facility] Address [address] [place] [address] Care Team Providers Care Foreman Or Supervisor And Operator Name Role Phone AnthonyJahaira Sharon BUSINESS ANALYTICS ANALYST Primary Care Provider [phone] Allergies Active Allergy Reactions Criticality Noted Date [...] age to complete this topic Care Teams Foreman Or Supervisor And Operator Relationship Specialty Start Date End Date Jahaira Cruz NP [address] [place] [phone] PCP - General Nurse Practitioner 05/20/18
== END 2025-03-25 11:41 | disposition home or self-care (01) ==
LOC: HO.XRAY 11:40
PROVIDERS: PCP Nurse Practitioner; Visit Provider Internal Medicine Rheumatology
DX: M54.50 Low back pain, unspecified (principal)
CPT/HCPCS: 72100

== ENCOUNTER → 2025-03-25 11:43 | Outpatient (BNV) | payer MEDICARE, OTHER, SELFPAY | PROVIDERS: PCP Nurse Practitioner; Visit Provider Radiology Diagnostic Radiology | DX: M47.815 Spondylosis without myelopathy or radiculopathy, thoracolumbar region (principal); M47.817 Spondylosis without myelopathy or radiculopathy, lumbosacral region; I70.0 Atherosclerosis of aorta | CPT/HCPCS: 72100 ==